=== PATIENT | male | born 1960 | race Caucasian/White ===

== ENCOUNTER 2017-12-14 16:36 | Emergency (ER) | payer MEDICAID ==
[~2017-12-14] VITALS: Ht 188 cm; Wt 145.0 kg
[~2017-12-14 16:36] MED LIST: ALBU18HF2 INH; FURO-149 PO; HYDR-3686 PO; METO1TAB25 PO; NITR0.4T51 SL
[2017-12-14 17:37] LABS: BASOPHILS # (AUTO) 0.1 X10'3 (0-0.2); BASOPHILS % (AUTO) 2.3 % (0-1); EOSINOPHILS # (AUTO) 0.2 X10'3 (0-0.9); EOSINOPHILS % (AUTO) 3.2 % (0-6); HEMATOCRIT 36.5 % (42.0-52.0); HEMOGLOBIN 12.6 g/dl (14.0-17.9); LYMPHOCYTES # (AUTO) 1.3 X10'3 (1.1-4.8); LYMPHOCYTES % (AUTO) 22.7 % (21-51); MEAN CORPUSCULAR HEMOGLOBIN 35.6 PG (27.0-31.0); MEAN CORPUSCULAR HGB CONC 34.5 % (33.0-36.5); MEAN CORPUSCULAR VOLUME 103.2 FL (78-98); MEAN PLATELET VOLUME 8.4 FL (7.4-10.4); MONOCYTES # (AUTO) 0.5 X10'3 (0-0.9); MONOCYTES % (AUTO) 8.4 % (2-12); NEUTROPHILS # (AUTO) 3.5 X10'3 (1.8-7.7); NEUTROPHILS % (AUTO) 63.4 % (42-75); PLATELET COUNT 118 X10'3 (140-440); RED BLOOD COUNT 3.54 X10'6 (4.70-6.10); RED CELL DISTRIBUTION WIDTH 13.6 % (11.5-14.5); WHITE BLOOD COUNT 5.5 X10'3 (4.5-11.0)
[2017-12-14 17:49] LABS: ALANINE AMINOTRANSFERASE 30 U/L (12-78); ALBUMIN 2.1 G/DL (3.4-5.0); ALBUMIN/GLOBULIN RATIO 0.4 (1.1-1.5); ALKALINE PHOSPHATASE 95 IU/L (46-116); ANION GAP 6 (8-16); ASPARTATE AMINO TRANSFERASE 47 U/L (10-37); BILIRUBIN,TOTAL 0.8 MG/DL (0.1-1.0); BLOOD UREA NITROGEN 11 MG/DL (7-18); BUN/CREATININE RATIO 9.6 (5.4-32.0); CALCIUM 7.9 MG/DL (8.5-10.1); CHLORIDE 100 MMOL/L (99-107); CREATININE 1.14 MG/DL (0.60-1.10); GLUCOSE 107 MG/DL (70-104); POTASSIUM 3.2 MMOL/L (3.5-5.1); SODIUM 136 MMOL/L (135-145); TOTAL CARBON DIOXIDE 29.6 MMOL/L (24-32); TOTAL PROTEIN 7.1 G/DL (6.4-8.2); eGFR 66 ML/MIN
[2017-12-14 18:00] VITALS: BP 136/72
[2017-12-14] MEDS ORDERED: potassium Cl 20 mEq SR tablet PO ONE (18:35)
== END 2017-12-14 19:51 | disposition home or self-care (01) ==
LOC: ER 16:36
DX: R14.0 Abdominal distension (gaseous) (principal); E87.6 Hypokalemia; K74.60 Unspecified cirrhosis of liver; K76.6 Portal hypertension; K40.90 Unilateral inguinal hernia, without obstruction or gangrene, not specified as recurrent; J43.9 Emphysema, unspecified; Z79.899 Other long term (current) drug therapy
CPT/HCPCS: 36415; 74176; 80053; 85025; 99285

== ENCOUNTER 2018-01-20 10:06 | Emergency (ER) | payer MEDICAID ==
[~2018-01-20] VITALS: Ht 188 cm; Wt 123.0 kg
[2018-01-20] MEDS ORDERED: ketorolac tromethamine 15mg/ml inj. IM ONE (10:30)
[2018-01-20] MEDS ORDERED: METH-360 PO (10:32)
[2018-01-20] MEDS ORDERED: NAPR-56 PO (10:32)
[2018-01-20 10:50] VITALS: BP 145/89
== END 2018-01-20 10:55 | disposition home or self-care (01) ==
LOC: ER 10:07
DX: S50.811A Abrasion of right forearm, initial encounter (principal); S50.312A Abrasion of left elbow, initial encounter; M25.512 Pain in left shoulder; W19.XXXA Unspecified fall, initial encounter; Y93.89 Activity, other specified; Y92.89 Other specified places as the place of occurrence of the external cause; Y99.9 Unspecified external cause status
CPT/HCPCS: 96372; 99284; A4565; A6255; J1885

== ENCOUNTER 2018-01-30 08:59 | Day surgery (SDC) | payer MEDICAID ==
[~2018-01-30 08:59] MED LIST changes: +METH-360 PO; +NAPR-56 PO
[2018-01-30] MEDS ORDERED: LIDOcaine/PRILOcaine 5gm cream TP ONE (09:54)
== END 2018-01-30 12:15 | disposition home or self-care (01) ==
LOC: WOUND CARE 08:59
PROVIDERS: ATTEND Surgery
DX: L97.522 Non-pressure chronic ulcer of other part of left foot with fat layer exposed (principal); G62.9 Polyneuropathy, unspecified; J43.9 Emphysema, unspecified; Z79.899 Other long term (current) drug therapy
CPT/HCPCS: 11042; 87070; 87075; 87077; 87102; 87176; 87186; A6021; A6206; A6209; L3260

== ENCOUNTER 2018-02-04 09:57 | Day surgery (SDC) | payer MEDICAID ==
[~2018-02-04 09:57] MED LIST changes: -METH-360 PO
[2018-02-04] MEDS ORDERED: LIDOcaine/PRILOcaine 5gm cream TP ONE (10:32)
[2018-02-04] MEDS ORDERED: RIFA300C4 (14:03)
== END 2018-02-04 11:53 | disposition home or self-care (01) ==
LOC: WOUND CARE 09:57
PROVIDERS: ATTEND Surgery
DX: L97.522 Non-pressure chronic ulcer of other part of left foot with fat layer exposed (principal); G62.9 Polyneuropathy, unspecified; J43.9 Emphysema, unspecified; Z79.899 Other long term (current) drug therapy
CPT/HCPCS: 11042; A6206; A6209; A6266; A6446

== ENCOUNTER 2018-02-06 08:51 | Day surgery (SDC) | payer MEDICAID ==
[~2018-02-06 08:51] MED LIST changes: +RIFA300C4
== END 2018-02-06 11:34 | disposition home or self-care (01) ==
LOC: WOUND CARE 08:51
PROVIDERS: ATTEND Surgery
DX: E11.621 Type 2 diabetes mellitus with foot ulcer (principal); L97.522 Non-pressure chronic ulcer of other part of left foot with fat layer exposed; E11.610 Type 2 diabetes mellitus with diabetic neuropathic arthropathy; G62.9 Polyneuropathy, unspecified; J43.9 Emphysema, unspecified; B95.62 Methicillin resistant Staphylococcus aureus infection as the cause of diseases classified elsewhere; I25.2 Old myocardial infarction; I10 Essential (primary) hypertension; K21.9 Gastro-esophageal reflux disease without esophagitis; I87.2 Venous insufficiency (chronic) (peripheral); F17.200 Nicotine dependence, unspecified, uncomplicated; F10.10 Alcohol abuse, uncomplicated; Z79.899 Other long term (current) drug therapy
CPT/HCPCS: 11042; 78315; A6209; A6266; A9503

== ENCOUNTER 2018-02-09 08:56 | Outpatient (CLI) | payer MEDICAID | END 2018-02-09 11:30 | disposition home or self-care (01) | LOC: WOUND CARE 08:56 → EDSTATUS 09:00 → WOUND CARE 11:30 | PROVIDERS: ATTEND Surgery | DX: E11.621 Type 2 diabetes mellitus with foot ulcer (principal); L97.522 Non-pressure chronic ulcer of other part of left foot with fat layer exposed; E11.610 Type 2 diabetes mellitus with diabetic neuropathic arthropathy; G62.9 Polyneuropathy, unspecified; J43.9 Emphysema, unspecified; B95.62 Methicillin resistant Staphylococcus aureus infection as the cause of diseases classified elsewhere; I25.2 Old myocardial infarction; I10 Essential (primary) hypertension; K21.9 Gastro-esophageal reflux disease without esophagitis; I87.2 Venous insufficiency (chronic) (peripheral); F17.200 Nicotine dependence, unspecified, uncomplicated; F10.10 Alcohol abuse, uncomplicated; Z79.899 Other long term (current) drug therapy | CPT/HCPCS: 99215; A6209; A6266 ==

== ENCOUNTER 2018-02-10 08:00 | Outpatient (CLI) | payer MEDICAID ==
[~2018-02-10 08:00] MED LIST changes: +LIDOcaine/PRILOcaine 5gm cream TP ONE
== END 2018-02-10 08:01 | disposition home or self-care (01) ==
LOC: WOUND CARE 08:00 → EDSTATUS 09:00
PROVIDERS: ATTEND Surgery
DX: E11.621 Type 2 diabetes mellitus with foot ulcer (principal); L97.522 Non-pressure chronic ulcer of other part of left foot with fat layer exposed; Z53.21 Procedure and treatment not carried out due to patient leaving prior to being seen by health care provider; E11.610 Type 2 diabetes mellitus with diabetic neuropathic arthropathy; G62.9 Polyneuropathy, unspecified; J43.9 Emphysema, unspecified; B95.62 Methicillin resistant Staphylococcus aureus infection as the cause of diseases classified elsewhere; I25.2 Old myocardial infarction; I10 Essential (primary) hypertension; K21.9 Gastro-esophageal reflux disease without esophagitis; I87.2 Venous insufficiency (chronic) (peripheral); F17.200 Nicotine dependence, unspecified, uncomplicated; F10.10 Alcohol abuse, uncomplicated; Z79.899 Other long term (current) drug therapy

== ENCOUNTER 2018-02-12 09:57 | Day surgery (SDC) | payer MEDICAID ==
[~2018-02-12 09:57] MED LIST changes: -LIDOcaine/PRILOcaine 5gm cream TP ONE
== END 2018-02-12 12:50 | disposition home or self-care (01) ==
LOC: WOUND CARE 09:57
PROVIDERS: ATTEND Surgery
DX: E11.621 Type 2 diabetes mellitus with foot ulcer (principal); L97.522 Non-pressure chronic ulcer of other part of left foot with fat layer exposed; E11.610 Type 2 diabetes mellitus with diabetic neuropathic arthropathy; G62.9 Polyneuropathy, unspecified; J43.9 Emphysema, unspecified; B95.62 Methicillin resistant Staphylococcus aureus infection as the cause of diseases classified elsewhere; I25.2 Old myocardial infarction; I10 Essential (primary) hypertension; K21.9 Gastro-esophageal reflux disease without esophagitis; I87.2 Venous insufficiency (chronic) (peripheral); F17.200 Nicotine dependence, unspecified, uncomplicated; F10.10 Alcohol abuse, uncomplicated; Z79.899 Other long term (current) drug therapy
CPT/HCPCS: 11042; A6209; A6266

== ENCOUNTER 2018-04-03 08:55 | Day surgery (SDC) | payer MEDICAID ==
[~2018-04-03 08:55] MED LIST changes: -NAPR-56 PO
[2018-04-03] MEDS ORDERED: LIDOcaine/PRILOcaine 5gm cream TP ONE (10:10)
== END 2018-04-03 10:55 | disposition home or self-care (01) ==
LOC: WOUND CARE 08:55
PROVIDERS: ATTEND Surgery
DX: E11.621 Type 2 diabetes mellitus with foot ulcer (principal); L97.522 Non-pressure chronic ulcer of other part of left foot with fat layer exposed; E11.610 Type 2 diabetes mellitus with diabetic neuropathic arthropathy; G62.9 Polyneuropathy, unspecified; J43.9 Emphysema, unspecified; B95.62 Methicillin resistant Staphylococcus aureus infection as the cause of diseases classified elsewhere; I25.2 Old myocardial infarction; I10 Essential (primary) hypertension; K21.9 Gastro-esophageal reflux disease without esophagitis; I87.2 Venous insufficiency (chronic) (peripheral); F17.200 Nicotine dependence, unspecified, uncomplicated; F10.10 Alcohol abuse, uncomplicated; Z79.899 Other long term (current) drug therapy
CPT/HCPCS: 97597; A6209; A6021; A6206; A6446

== ENCOUNTER 2018-04-16 10:15 | Day surgery (SDC) | payer MEDICAID | END 2018-04-16 13:15 | disposition home or self-care (01) | LOC: WOUND CARE 10:15 | PROVIDERS: ATTEND Surgery | DX: E11.621 Type 2 diabetes mellitus with foot ulcer (principal); L97.522 Non-pressure chronic ulcer of other part of left foot with fat layer exposed; E11.610 Type 2 diabetes mellitus with diabetic neuropathic arthropathy; G62.9 Polyneuropathy, unspecified; J43.9 Emphysema, unspecified; B95.62 Methicillin resistant Staphylococcus aureus infection as the cause of diseases classified elsewhere; I25.2 Old myocardial infarction; I10 Essential (primary) hypertension; K21.9 Gastro-esophageal reflux disease without esophagitis; I87.2 Venous insufficiency (chronic) (peripheral); F17.200 Nicotine dependence, unspecified, uncomplicated; F10.10 Alcohol abuse, uncomplicated; Z79.899 Other long term (current) drug therapy | CPT/HCPCS: A6021; A6206; A6446 ==

== ENCOUNTER 2018-04-24 10:41 | Day surgery (SDC) | payer MEDICAID ==
--- NOTE | 2018-04-24 12:00 | NUR ---
Patient arrived via wheelchair from [facility] and was admitted to outpatient wound care for physician visit with Jorge Alberto Joshi MD. Placed in contact isolation precautions per hospital policy. Dressing removed, wound cleansed and lidocaine applied per order. Patient assessed for changes in conditions, medications and medical history. 1125 - Dr. Joshi at bedside accompanied by RN. Wound assessed, time out performed by MD/RN. Wound debrided as detailed in the physician progress/procedure note. Plan of care discussed with patient. Dressings placed per MD orders. Patient instructed on the signs and symptoms of infection and to call the Wound Center if any occur or to go to the ED if we are closed: Increased pain in wound Increase in drainage from the wound Redness in the skin surrounding the wound Bleeding from the wound Temperature of 101 or greater Patient instructed that the weight of their body puts a large amount of pressure on their wounds. This pressure keeps the new tissue from growing and inhibits new blood vessels from forming. Explained that, if they continue to bear weight on a body part that has a wound, the time it takes to heal the wound increases, the wound may get worse or the wound may not heal at all. Patient verbalized understanding of all discharge instructions and plan of care and exited via wheelchair out to [facility] in stable condition with no sign or symptom of distress at time of discharge. Kiana at [facility] given report and orders faxed.
== END 2018-04-24 12:00 | disposition home or self-care (01) ==
LOC: WOUND CARE 10:41
PROVIDERS: ATTEND Surgery
DX: E11.621 Type 2 diabetes mellitus with foot ulcer (principal); L97.522 Non-pressure chronic ulcer of other part of left foot with fat layer exposed; E11.610 Type 2 diabetes mellitus with diabetic neuropathic arthropathy; G62.9 Polyneuropathy, unspecified; E11.69 Type 2 diabetes mellitus with other specified complication; M86.272 Subacute osteomyelitis, left ankle and foot; L03.116 Cellulitis of left lower limb; J43.9 Emphysema, unspecified; B95.62 Methicillin resistant Staphylococcus aureus infection as the cause of diseases classified elsewhere; I25.2 Old myocardial infarction; I10 Essential (primary) hypertension; K21.9 Gastro-esophageal reflux disease without esophagitis; I87.2 Venous insufficiency (chronic) (peripheral); F17.200 Nicotine dependence, unspecified, uncomplicated; F10.10 Alcohol abuse, uncomplicated; Z79.899 Other long term (current) drug therapy
CPT/HCPCS: 97597; A6209; A6021; A6206; A6446

== ENCOUNTER 2018-05-04 11:03 | Day surgery (SDC) | payer MEDICAID ==
[2018-05-04] MEDS ORDERED: LIDOcaine/PRILOcaine 5gm cream TP ONE (11:21)
--- NOTE | 2018-05-04 12:30 | NUR ---
Patient arrived via wheelchair from [facility] and was admitted to outpatient wound care for physician visit with Jorge Alberto Josih MD. Dressing removed, wound cleansed and Emla cream applied per order. Patient assessed for changes in conditions, medications and medical history. 1125 - Dr. Joshi at bedside accompanied by RN. Wound assessed, time out performed by MD/RN. Wound debrided as detailed in the physician progress/procedure note. Plan of care discussed with patient. Dressings placed per MD orders. Patient instructed on the signs and symptoms of infection and to call the Wound Center if any occur or to go to the ED if we are closed: Increased pain in wound Increase in drainage from the wound Redness in the skin surrounding the wound Bleeding from the wound Temperature of 101 or greater Patient instructed that the weight of their body puts a large amount of pressure on their wounds. This pressure keeps the new tissue from growing and inhibits new blood vessels from forming. Explained that, if they continue to bear weight on a body part that has a wound, the time it takes to heal the wound increases, the wound may get worse or the wound may not heal at all. Patient verbalized understanding of all discharge instructions and plan of care and exited via wheelchair out to [facility] in stable condition with no sign or symptom of distress at time of discharge.
== END 2018-05-04 12:11 | disposition home or self-care (01) ==
LOC: WOUND CARE 11:03
PROVIDERS: ATTEND Surgery
DX: E11.621 Type 2 diabetes mellitus with foot ulcer (principal); L97.522 Non-pressure chronic ulcer of other part of left foot with fat layer exposed; E11.610 Type 2 diabetes mellitus with diabetic neuropathic arthropathy; G62.9 Polyneuropathy, unspecified; E11.69 Type 2 diabetes mellitus with other specified complication; M86.272 Subacute osteomyelitis, left ankle and foot; L03.116 Cellulitis of left lower limb; J43.9 Emphysema, unspecified; B95.62 Methicillin resistant Staphylococcus aureus infection as the cause of diseases classified elsewhere; I25.2 Old myocardial infarction; I10 Essential (primary) hypertension; K21.9 Gastro-esophageal reflux disease without esophagitis; I87.2 Venous insufficiency (chronic) (peripheral); F17.200 Nicotine dependence, unspecified, uncomplicated; F10.10 Alcohol abuse, uncomplicated; Z79.899 Other long term (current) drug therapy
CPT/HCPCS: 97597; A6209; A6021; A6206; A6446

== ENCOUNTER 2018-05-11 10:56 | Day surgery (SDC) | payer MEDICAID ==
[~2018-05-11 10:56] MED LIST changes: -RIFA300C4
[2018-05-11] MEDS ORDERED: LIDOcaine/PRILOcaine 5gm cream TP ONE (11:32)
--- NOTE | 2018-05-11 14:09 | NUR ---
Patient arrived safely into [facility] via wheelchair. Patient was admitted to outpatient wound care for physician visit. Dressing removed, wound cleansed and Emla applied per order. Patient assessed for changes in conditions, medications and medical history. Dr. Joshi at bedside accompanied by RN. Wound assessed, time out performed by MD/RN. Wound debrided as detailed in the physician progress/procedure note. Plan of care discussed with patient. Dressings placed per MD orders. Patient instructed on the signs and symptoms of infection and to call the Wound Center if any occur or to go to the ED if we are closed: Increased pain in wound Increase in drainage from the wound Redness in the skin surrounding the wound Bleeding from the wound Temperature of 101 or greater Patient instructed that the weight of their body puts a large amount of pressure on their wounds. This pressure keeps the new tissue from growing and inhibits new blood vessels from forming. Explained that, if they continue to bear weight on a body part that has a wound, the time it takes to heal the wound increases, the wound may get worse or the wound may not heal at all. Patient verbalized understanding of all discharge instructions and plan of care and ambulated independently out to [facility] in stable condition with no sign or symptom of distress at time of discharge Addendum: 05/11/18 at 1411 by Savannah Tyson RN Amended: Links added.
== END 2018-05-11 12:28 | disposition home or self-care (01) ==
LOC: WOUND CARE 10:56
PROVIDERS: ATTEND Surgery
DX: E11.621 Type 2 diabetes mellitus with foot ulcer (principal); L97.522 Non-pressure chronic ulcer of other part of left foot with fat layer exposed; E11.610 Type 2 diabetes mellitus with diabetic neuropathic arthropathy; G62.9 Polyneuropathy, unspecified; E11.69 Type 2 diabetes mellitus with other specified complication; M86.272 Subacute osteomyelitis, left ankle and foot; L03.116 Cellulitis of left lower limb; J43.9 Emphysema, unspecified; B95.62 Methicillin resistant Staphylococcus aureus infection as the cause of diseases classified elsewhere; I25.2 Old myocardial infarction; I10 Essential (primary) hypertension; K21.9 Gastro-esophageal reflux disease without esophagitis; I87.2 Venous insufficiency (chronic) (peripheral); F17.200 Nicotine dependence, unspecified, uncomplicated; F10.10 Alcohol abuse, uncomplicated; Z79.899 Other long term (current) drug therapy
CPT/HCPCS: 11042; A6209; A6021; A6446

== ENCOUNTER 2018-05-20 09:34 | Day surgery (SDC) | payer MEDICAID ==
[2018-05-20] MEDS ORDERED: LIDOcaine 2% 5ml jelly ONE (09:50)
--- NOTE | 2018-05-20 11:30 | NUR ---
Patient arrived via wheelchair from [facility] and was admitted to outpatient wound care for physician visit with Jorge Alberto Joshi MD. Dressing removed, wound cleansed and lidocaine applied per order. Patient assessed for changes in conditions, medications and medical history. 1100 - Dr. Joshi at bedside accompanied by RN. Wound assessed, time out performed by MD/RN. Wound debrided and procedure performed as detailed in the physician progress/procedure note. Plan of care discussed with patient. Dressings placed per MD orders. Patient instructed on the signs and symptoms of infection and to call the Wound Center if any occur or to go to the ED if we are closed: Increased pain in wound Increase in drainage from the wound Redness in the skin surrounding the wound Bleeding from the wound Temperature of 101 or greater Patient instructed that the weight of their body puts a large amount of pressure on their wounds. This pressure keeps the new tissue from growing and inhibits new blood vessels from forming. Explained that, if they continue to bear weight on a body part that has a wound, the time it takes to heal the wound increases, the wound may get worse or the wound may not heal at all. Patient verbalized understanding of all discharge instructions and plan of care and exited via wheelchair out to [facility] in stable condition with no sign or symptom of distress at time of discharge.
== END 2018-05-20 11:19 | disposition home or self-care (01) ==
LOC: WOUND CARE 09:34
PROVIDERS: ATTEND Surgery
DX: E11.621 Type 2 diabetes mellitus with foot ulcer (principal); L97.522 Non-pressure chronic ulcer of other part of left foot with fat layer exposed; E11.610 Type 2 diabetes mellitus with diabetic neuropathic arthropathy; E11.42 Type 2 diabetes mellitus with diabetic polyneuropathy; E11.69 Type 2 diabetes mellitus with other specified complication; M86.272 Subacute osteomyelitis, left ankle and foot; J43.9 Emphysema, unspecified; B95.62 Methicillin resistant Staphylococcus aureus infection as the cause of diseases classified elsewhere; I25.2 Old myocardial infarction; I10 Essential (primary) hypertension; K21.9 Gastro-esophageal reflux disease without esophagitis; I87.2 Venous insufficiency (chronic) (peripheral); F17.200 Nicotine dependence, unspecified, uncomplicated; F10.10 Alcohol abuse, uncomplicated; Z79.899 Other long term (current) drug therapy
CPT/HCPCS: 15275; A6209; A6222; Q4106; A6250; A6446

== ENCOUNTER 2018-05-27 09:54 | Day surgery (SDC) | payer MEDICAID ==
--- NOTE | 2018-05-27 12:56 | NUR ---
[facility] Patient admitted to outpatient wound care for physician visit with Jorge Alberto Joshi MD. Dressing removed, wound cleansed and lidocaine applied per order. Patient assessed for changes in conditions, medications and medical history. Dr. Joshi at bedside accompanied by RN. Wound assessed and no debridement was done. Plan of care discussed with patient. Dressings placed per MD orders. Patient instructed on the signs and symptoms of infection and to call the Wound Center if any occur or to go to the ED if we are closed: Increased pain in wound Increase in drainage from the wound Redness in the skin surrounding the wound Bleeding from the wound Temperature of 101 or greater Patient instructed that the weight of their body puts a large amount of pressure on their wounds. This pressure keeps the new tissue from growing and inhibits new blood vessels from forming. Explained that, if they continue to bear weight on a body part that has a wound, the time it takes to heal the wound increases, the wound may get worse or the wound may not heal at all. Patient verbalized understanding of all discharge instructions and plan of care. Patient left in stable condition with no sign or symptom of distress. Addendum: 05/27/18 at 1300 by Savannah Tyson RN Amended: Links added.
== END 2018-05-27 10:53 | disposition home or self-care (01) ==
LOC: WOUND CARE 09:54
PROVIDERS: ATTEND Surgery
DX: E11.621 Type 2 diabetes mellitus with foot ulcer (principal); L97.522 Non-pressure chronic ulcer of other part of left foot with fat layer exposed; E11.610 Type 2 diabetes mellitus with diabetic neuropathic arthropathy; E11.42 Type 2 diabetes mellitus with diabetic polyneuropathy; E11.69 Type 2 diabetes mellitus with other specified complication; M86.272 Subacute osteomyelitis, left ankle and foot; J43.9 Emphysema, unspecified; B95.62 Methicillin resistant Staphylococcus aureus infection as the cause of diseases classified elsewhere; I25.2 Old myocardial infarction; I10 Essential (primary) hypertension; K21.9 Gastro-esophageal reflux disease without esophagitis; I87.2 Venous insufficiency (chronic) (peripheral); F17.200 Nicotine dependence, unspecified, uncomplicated; F10.10 Alcohol abuse, uncomplicated; Z79.899 Other long term (current) drug therapy
CPT/HCPCS: A6209; G0463; A6206; A6446

== ENCOUNTER 2018-06-03 09:40 | Day surgery (SDC) | payer MEDICAID ==
[2018-06-03] MEDS ORDERED: LIDOcaine 2% 5ml jelly ONE (10:06)
--- NOTE | 2018-06-03 12:10 | NUR ---
Patient ambulated independently from [facility] and was admitted to outpatient wound care for physician visit. Dressings removed, wound cleansed. Patient assessment completed with review of patient's medical history and current medications. 1025-Dr. Joshi at bedside accompanied by RN. Wound assessed, time-out performed by MD/RN. Wound debrided as detailed in the physician progress/procedure note. Plan of care discussed with patient. Dressings placed per MD orders. Patient instructed on the signs and symptoms of infection and to call the Wound Center if any occur or to go to the ED if we are closed: Increased pain in the wound Increase in drainage from the wound Redness in the skin surrounding the wound Bleeding from the wound Temperature of 101F or greater Patient instructed that the weight of their body puts a large amount of pressure on their wounds. This pressure keeps the new tissue from growing and inhibits new blood vessels from forming. Explained that, if they continue to bear weight on a body part that has a wound, the time it takes to heal the wound increases, the wound may get worse, or the wound may not heal at all. Patient verbalized understanding of all discharge instructions and plan of care. Patient ambulated independently out to [facility] in stable condition with no signs or symptoms of distress at time of discharge.
== END 2018-06-03 11:03 | disposition home or self-care (01) ==
LOC: WOUND CARE 09:40
PROVIDERS: ATTEND Surgery
DX: E11.621 Type 2 diabetes mellitus with foot ulcer (principal); L97.522 Non-pressure chronic ulcer of other part of left foot with fat layer exposed; E11.610 Type 2 diabetes mellitus with diabetic neuropathic arthropathy; E11.42 Type 2 diabetes mellitus with diabetic polyneuropathy; E11.69 Type 2 diabetes mellitus with other specified complication; M86.272 Subacute osteomyelitis, left ankle and foot; J43.9 Emphysema, unspecified; B95.62 Methicillin resistant Staphylococcus aureus infection as the cause of diseases classified elsewhere; I25.2 Old myocardial infarction; I10 Essential (primary) hypertension; K21.9 Gastro-esophageal reflux disease without esophagitis; I87.2 Venous insufficiency (chronic) (peripheral); F17.200 Nicotine dependence, unspecified, uncomplicated; F10.10 Alcohol abuse, uncomplicated; Z79.899 Other long term (current) drug therapy
CPT/HCPCS: 15275; A6222; Q4186; A6206; A6250; A6446

== ENCOUNTER 2018-06-11 11:20 | Day surgery (SDC) | payer MEDICAID ==
--- NOTE | 2018-06-11 14:59 | NUR ---
Patient arrived safely into [facility] via wheelchair. Patient admitted to outpatient wound care for physician visit with Jorge Alberto Joshi MD. Dressing removed, wound cleansed and lidocaine applied per order. Patient assessed for changes in conditions, medications and medical history. Dr. Joshi at bedside accompanied by RN. Wound assessed, time out performed by MD/RN. Wound debrided as detailed in the physician progress/procedure note. Plan of care discussed with patient. Dressings placed per MD orders. Patient instructed on the signs and symptoms of infection and to call the Wound Center if any occur or to go to the ED if we are closed: Increased pain in wound Increase in drainage from the wound Redness in the skin surrounding the wound Bleeding from the wound Temperature of 101 or greater Patient instructed that the weight of their body puts a large amount of pressure on their wounds. This pressure keeps the new tissue from growing and inhibits new blood vessels from forming. Explained that, if they continue to bear weight on a body part that has a wound, the time it takes to heal the wound increases, the wound may get worse or the wound may not heal at all. Patient verbalized understanding of all discharge instructions and plan of care. Patient left in stable condition with no sign or symptom of distress at time of discharge. Addendum: 06/11/18 at 1501 by Savannah Tyson RN Amended: Links added.
== END 2018-06-11 12:42 | disposition home or self-care (01) ==
LOC: WOUND CARE 11:20
PROVIDERS: ATTEND Surgery
DX: E11.621 Type 2 diabetes mellitus with foot ulcer (principal); L97.522 Non-pressure chronic ulcer of other part of left foot with fat layer exposed; E11.610 Type 2 diabetes mellitus with diabetic neuropathic arthropathy; E11.42 Type 2 diabetes mellitus with diabetic polyneuropathy; E11.69 Type 2 diabetes mellitus with other specified complication; M86.272 Subacute osteomyelitis, left ankle and foot; J43.9 Emphysema, unspecified; B95.62 Methicillin resistant Staphylococcus aureus infection as the cause of diseases classified elsewhere; I25.2 Old myocardial infarction; I10 Essential (primary) hypertension; K21.9 Gastro-esophageal reflux disease without esophagitis; I87.2 Venous insufficiency (chronic) (peripheral); F17.200 Nicotine dependence, unspecified, uncomplicated; F10.10 Alcohol abuse, uncomplicated; Z79.899 Other long term (current) drug therapy
CPT/HCPCS: 15275; A6209; A6222; Q4186; A6250; A6446

== ENCOUNTER 2018-06-17 10:00 | Outpatient (CLI) | payer MEDICAID ==
--- NOTE | 2018-06-17 14:06 | NUR ---
Patient arrived safely into [facility] via wheelchair. Patient admitted to outpatient wound care clinic for physician visit with Jorge Alberto Joshi MD. Dressing removed, wound cleansed and lidocaine applied per order. Patient assessed for changes in conditions, medications and medical history. Dr. Joshi at bedside accompanied by RN. Wound assessed, time out performed by MD/RN. Wound debrided as detailed in the physician progress/procedure note. Plan of care discussed with patient. Dressings placed per MD orders. Patient instructed on the signs and symptoms of infection and to call the Wound Center if any occur or to go to the ED if we are closed: Increased pain in wound Increase in drainage from the wound Redness in the skin surrounding the wound Bleeding from the wound Temperature of 101 or greater Patient instructed that the weight of their body puts a large amount of pressure on their wounds. This pressure keeps the new tissue from growing and inhibits new blood vessels from forming. Explained that, if they continue to bear weight on a body part that has a wound, the time it takes to heal the wound increases, the wound may get worse or the wound may not heal at all. Patient verbalized understanding of all discharge instructions and plan of care. Patient left stable condition with no sign or symptom of distress at time of discharge. Addendum: 06/17/18 at 1409 by Savannah Tyson RN Amended: Links added.
== END 2018-06-17 11:22 | disposition home or self-care (01) ==
LOC: EDSTATUS 10:00 → WOUND CARE 10:00
PROVIDERS: ATTEND Surgery
DX: E11.621 Type 2 diabetes mellitus with foot ulcer (principal); L97.522 Non-pressure chronic ulcer of other part of left foot with fat layer exposed; E11.610 Type 2 diabetes mellitus with diabetic neuropathic arthropathy; E11.42 Type 2 diabetes mellitus with diabetic polyneuropathy; E11.69 Type 2 diabetes mellitus with other specified complication; M86.272 Subacute osteomyelitis, left ankle and foot; J43.9 Emphysema, unspecified; B95.62 Methicillin resistant Staphylococcus aureus infection as the cause of diseases classified elsewhere; I25.2 Old myocardial infarction; I10 Essential (primary) hypertension; K21.9 Gastro-esophageal reflux disease without esophagitis; I87.2 Venous insufficiency (chronic) (peripheral); F17.200 Nicotine dependence, unspecified, uncomplicated; F10.10 Alcohol abuse, uncomplicated; Z79.899 Other long term (current) drug therapy
CPT/HCPCS: A6209; G0463; A6021; A6206; A6446

== ENCOUNTER 2018-06-24 10:02 | Day surgery (SDC) | payer MEDICAID ==
--- NOTE | 2018-06-24 11:00 | NUR ---
Patient arrived via wheelchair from [facility] and was admitted to outpatient wound care for physician visit with Jorge Alberto Joshi MD. Placed in contact isolation precautions per hospital policy. Dressing removed, wound cleansed and Emla cream applied per order. Patient assessed for changes in conditions, medications and medical history. 1027 - Dr. Joshi at bedside accompanied by RN. Wound assessed, time out performed by MD/RN. Wound debrided as detailed in the physician progress/procedure note. Plan of care discussed with patient. Dressings placed per MD orders. Patient instructed on the signs and symptoms of infection and to call the Wound Center if any occur or to go to the ED if we are closed: Increased pain in wound Increase in drainage from the wound Redness in the skin surrounding the wound Bleeding from the wound Temperature of 101 or greater Patient instructed that the weight of their body puts a large amount of pressure on their wounds. This pressure keeps the new tissue from growing and inhibits new blood vessels from forming. Explained that, if they continue to bear weight on a body part that has a wound, the time it takes to heal the wound increases, the wound may get worse or the wound may not heal at all. Patient verbalized understanding of all discharge instructions and plan of care and exited via wheelchair out to [facility] in stable condition with no sign or symptom of distress at time of discharge.
[2018-06-24] MEDS ORDERED: LIDOcaine/PRILOcaine 5gm cream TP ONE (11:10)
== END 2018-06-24 11:45 | disposition home or self-care (01) ==
LOC: WOUND CARE 10:02
PROVIDERS: ATTEND Surgery
DX: E11.621 Type 2 diabetes mellitus with foot ulcer (principal); L97.522 Non-pressure chronic ulcer of other part of left foot with fat layer exposed; E11.610 Type 2 diabetes mellitus with diabetic neuropathic arthropathy; E11.42 Type 2 diabetes mellitus with diabetic polyneuropathy; E11.69 Type 2 diabetes mellitus with other specified complication; M86.272 Subacute osteomyelitis, left ankle and foot; J43.9 Emphysema, unspecified; B95.62 Methicillin resistant Staphylococcus aureus infection as the cause of diseases classified elsewhere; I25.2 Old myocardial infarction; I10 Essential (primary) hypertension; K21.9 Gastro-esophageal reflux disease without esophagitis; I87.2 Venous insufficiency (chronic) (peripheral); F17.200 Nicotine dependence, unspecified, uncomplicated; F10.10 Alcohol abuse, uncomplicated; Z79.899 Other long term (current) drug therapy
CPT/HCPCS: 11042; A6209; A6021; A6206; A6446

== ENCOUNTER 2018-07-01 09:45 | Day surgery (SDC) | payer MEDICAID ==
[2018-07-01] MEDS ORDERED: LIDOcaine/PRILOcaine 5gm cream TP ONE (10:02)
--- NOTE | 2018-07-01 13:02 | NUR ---
Patient arrived safely into [facility] via wheelchair. Patient admitted to outpatient wound care for physician visit with Jorge Alberto Joshi MD. Dressing removed, wound cleansed and Emla cream applied per order. Patient assessed for changes in conditions, medications and medical history. Dr. Joshi at bedside accompanied by RN. Wound assessed, time out performed by MD/RN. Wound debrided as detailed in the physician progress/procedure note. Plan of care discussed with patient. Dressings placed per MD orders. Patient instructed on the signs and symptoms of infection and to call the Wound Center if any occur or to go to the ED if we are closed: Increased pain in wound Increase in drainage from the wound Redness in the skin surrounding the wound Bleeding from the wound Temperature of 101 or greater Patient instructed that the weight of their body puts a large amount of pressure on their wounds. This pressure keeps the new tissue from growing and inhibits new blood vessels from forming. Explained that, if they continue to bear weight on a body part that has a wound, the time it takes to heal the wound increases, the wound may get worse or the wound may not heal at all. Patient verbalized understanding of all discharge instructions and plan of care. Patient left in stable condition with no sign or symptom of distress at time of discharge. Addendum: 07/01/18 at 1306 by Savannah Tyson RN Amended: Links added.
== END 2018-07-01 10:56 | disposition home or self-care (01) ==
LOC: WOUND CARE 09:45
PROVIDERS: ATTEND Surgery
DX: E11.621 Type 2 diabetes mellitus with foot ulcer (principal); L97.522 Non-pressure chronic ulcer of other part of left foot with fat layer exposed; E11.610 Type 2 diabetes mellitus with diabetic neuropathic arthropathy; E11.42 Type 2 diabetes mellitus with diabetic polyneuropathy; E11.69 Type 2 diabetes mellitus with other specified complication; M86.272 Subacute osteomyelitis, left ankle and foot; J43.9 Emphysema, unspecified; B95.62 Methicillin resistant Staphylococcus aureus infection as the cause of diseases classified elsewhere; I25.2 Old myocardial infarction; I10 Essential (primary) hypertension; K21.9 Gastro-esophageal reflux disease without esophagitis; I87.2 Venous insufficiency (chronic) (peripheral); F17.200 Nicotine dependence, unspecified, uncomplicated; F10.10 Alcohol abuse, uncomplicated; Z79.899 Other long term (current) drug therapy
CPT/HCPCS: 15275; A6209; A6222; Q4186; A6250; A6446

== ENCOUNTER 2018-07-08 10:09 | Outpatient (CLI) | payer MEDICAID ==
--- NOTE | 2018-07-08 12:07 | NUR ---
Patient arrived via wheelchair from [facility] and was admitted to outpatient wound care for physician visit with Jorge Alberto Joshi MD. Placed in contact isolation precautions per hospital policy. Dressing removed, wound cleansed. Patient assessed for changes in conditions, medications and medical history. 1133 - Dr. Joshi at bedside accompanied by RN. Wound assessed by MD, orders written. Plan of care discussed with patient. Dressings placed per MD orders. Patient instructed on the signs and symptoms of infection and to call the Wound Center if any occur or to go to the ED if we are closed: Increased pain in wound Increase in drainage from the wound Redness in the skin surrounding the wound Bleeding from the wound Temperature of 101 or greater Patient instructed that the weight of their body puts a large amount of pressure on their wounds. This pressure keeps the new tissue from growing and inhibits new blood vessels from forming. Explained that, if they continue to bear weight on a body part that has a wound, the time it takes to heal the wound increases, the wound may get worse or the wound may not heal at all. Patient verbalized understanding of all discharge instructions and plan of care and exited via wheelchair accompanied by friend out to [facility] in stable condition with no sign or symptom of distress at time of discharge.
== END 2018-07-08 11:52 | disposition home or self-care (01) ==
LOC: WOUND CARE 10:09
PROVIDERS: ATTEND Surgery
DX: E11.621 Type 2 diabetes mellitus with foot ulcer (principal); L97.522 Non-pressure chronic ulcer of other part of left foot with fat layer exposed; E11.610 Type 2 diabetes mellitus with diabetic neuropathic arthropathy; E11.42 Type 2 diabetes mellitus with diabetic polyneuropathy; E11.69 Type 2 diabetes mellitus with other specified complication; M86.572 Other chronic hematogenous osteomyelitis, left ankle and foot; J43.9 Emphysema, unspecified; B95.62 Methicillin resistant Staphylococcus aureus infection as the cause of diseases classified elsewhere; I25.2 Old myocardial infarction; I10 Essential (primary) hypertension; K21.9 Gastro-esophageal reflux disease without esophagitis; I87.2 Venous insufficiency (chronic) (peripheral); F17.200 Nicotine dependence, unspecified, uncomplicated; F10.10 Alcohol abuse, uncomplicated; Z79.899 Other long term (current) drug therapy
CPT/HCPCS: A6209; A6222; G0463; A6446

== ENCOUNTER 2018-07-14 09:55 | Day surgery (SDC) | payer MEDICAID ==
[2018-07-14] MEDS ORDERED: LIDOcaine/PRILOcaine 5gm cream TP ONE (10:23)
--- NOTE | 2018-07-14 11:15 | NUR ---
Patient arrived via wheelchair from [facility] and was admitted to outpatient wound care for physician visit with Jorge Alberto Joshi MD. Placed in contact isolation precautions per hospital policy. Dressing removed, wound cleansed and Emla cream applied per order. Patient assessed for changes in conditions, medications and medical history. 1040 - Dr. Joshi at bedside accompanied by RN. Wound assessed, time out performed by MD/RN. Wound debrided as detailed in the physician progress/procedure note. Plan of care discussed with patient. Dressings placed per MD orders. Patient instructed on the signs and symptoms of infection and to call the Wound Center if any occur or to go to the ED if we are closed: Increased pain in wound Increase in drainage from the wound Redness in the skin surrounding the wound Bleeding from the wound Temperature of 101 or greater Patient instructed that the weight of their body puts a large amount of pressure on their wounds. This pressure keeps the new tissue from growing and inhibits new blood vessels from forming. Explained that, if they continue to bear weight on a body part that has a wound, the time it takes to heal the wound increases, the wound may get worse or the wound may not heal at all. Patient verbalized understanding of all discharge instructions and plan of care and exited via wheelchair out to [facility] in stable condition with no sign or symptom of distress at time of discharge.
== END 2018-07-14 11:21 | disposition home or self-care (01) ==
LOC: WOUND CARE 09:55
PROVIDERS: ATTEND Surgery
DX: E11.621 Type 2 diabetes mellitus with foot ulcer (principal); L97.522 Non-pressure chronic ulcer of other part of left foot with fat layer exposed; E11.610 Type 2 diabetes mellitus with diabetic neuropathic arthropathy; E11.42 Type 2 diabetes mellitus with diabetic polyneuropathy; E11.69 Type 2 diabetes mellitus with other specified complication; M86.572 Other chronic hematogenous osteomyelitis, left ankle and foot; J43.9 Emphysema, unspecified; B95.62 Methicillin resistant Staphylococcus aureus infection as the cause of diseases classified elsewhere; I25.2 Old myocardial infarction; I10 Essential (primary) hypertension; K21.9 Gastro-esophageal reflux disease without esophagitis; I87.2 Venous insufficiency (chronic) (peripheral); F17.200 Nicotine dependence, unspecified, uncomplicated; F10.10 Alcohol abuse, uncomplicated; Z79.899 Other long term (current) drug therapy
CPT/HCPCS: 97597; A6209; A6021; A6206; A6446

== ENCOUNTER 2018-07-21 09:55 | Day surgery (SDC) | payer MEDICAID ==
[2018-07-21] MEDS ORDERED: LIDOcaine/PRILOcaine 5gm cream TP ONE (11:11)
--- NOTE | 2018-07-21 13:07 | NUR ---
Patient arrived safely into [facility] via wheelchair. Patient admitted to outpatient wound care for physician visit with Jorge Alberto Joshi MD. Dressing removed, wound cleansed and Emla cream applied per order. Patient assessed for changes in conditions, medications and medical history. Dr. Joshi at bedside accompanied by RN. Wound assessed, time out performed by MD/RN. Wound debrided as detailed in the physician progress/procedure note. Plan of care discussed with patient. Dressings placed per MD orders. Patient instructed on the signs and symptoms of infection and to call the Wound Center if any occur or to go to the ED if we are closed: Increased pain in wound Increase in drainage from the wound Redness in the skin surrounding the wound Bleeding from the wound Temperature of 101 or greater Patient instructed that the weight of their body puts a large amount of pressure on their wounds. This pressure keeps the new tissue from growing and inhibits new blood vessels from forming. Explained that, if they continue to bear weight on a body part that has a wound, the time it takes to heal the wound increases, the wound may get worse or the wound may not heal at all. Patient verbalized understanding of all discharge instructions and plan of care. Patient left in stable condition with no sign or symptom of distress at time of discharge. Addendum: 07/21/18 at 1309 by Savannah Tyson RN Amended: Links added.
== END 2018-07-21 11:39 | disposition home or self-care (01) ==
LOC: WOUND CARE 09:55
PROVIDERS: ATTEND Surgery
DX: E11.621 Type 2 diabetes mellitus with foot ulcer (principal); L97.522 Non-pressure chronic ulcer of other part of left foot with fat layer exposed; E11.610 Type 2 diabetes mellitus with diabetic neuropathic arthropathy; E11.42 Type 2 diabetes mellitus with diabetic polyneuropathy; E11.69 Type 2 diabetes mellitus with other specified complication; M86.572 Other chronic hematogenous osteomyelitis, left ankle and foot; J43.9 Emphysema, unspecified; B95.62 Methicillin resistant Staphylococcus aureus infection as the cause of diseases classified elsewhere; I25.2 Old myocardial infarction; I10 Essential (primary) hypertension; K21.9 Gastro-esophageal reflux disease without esophagitis; I87.2 Venous insufficiency (chronic) (peripheral); F17.200 Nicotine dependence, unspecified, uncomplicated; F10.10 Alcohol abuse, uncomplicated; Z79.899 Other long term (current) drug therapy
CPT/HCPCS: 97597; A6209; A6021; A6206; A6446

== ENCOUNTER 2018-07-28 10:00 | Outpatient (CLI) | payer MEDICAID ==
[2018-07-28] MEDS ORDERED: LIDOcaine/PRILOcaine 5gm cream TP ONE (10:16)
--- NOTE | 2018-07-28 11:18 | NUR ---
Patient arrived safely into [facility] via wheelchair. Patient admitted to outpatient wound care for physician visit with Jorge Alberto Joshi MD. Dressing removed, wound cleansed and Emla cream applied per order. Patient assessed for changes in conditions, medications and medical history. Dr. Joshi at bedside accompanied by RN. Wound assessed, time out performed by MD/RN. Wound debrided as detailed in the physician progress/procedure note. Plan of care discussed with patient. Dressings placed per MD orders. Patient instructed on the signs and symptoms of infection and to call the Wound Center if any occur or to go to the ED if we are closed: Increased pain in wound Increase in drainage from the wound Redness in the skin surrounding the wound Bleeding from the wound Temperature of 101 or greater Patient instructed that the weight of their body puts a large amount of pressure on their wounds. This pressure keeps the new tissue from growing and inhibits new blood vessels from forming. Explained that, if they continue to bear weight on a body part that has a wound, the time it takes to heal the wound increases, the wound may get worse or the wound may not heal at all. Patient verbalized understanding of all discharge instructions and plan of care. Patient left in stable condition with no sign or symptom of distress at time of discharge. Addendum: 07/28/18 at 1120 by Savannah Tyson RN Amended: Links added.
== END 2018-07-28 11:12 | disposition home or self-care (01) ==
LOC: EDSTATUS 10:00 → WOUND CARE 10:00
PROVIDERS: ATTEND Surgery
DX: E11.621 Type 2 diabetes mellitus with foot ulcer (principal); L97.522 Non-pressure chronic ulcer of other part of left foot with fat layer exposed; E11.610 Type 2 diabetes mellitus with diabetic neuropathic arthropathy; E11.42 Type 2 diabetes mellitus with diabetic polyneuropathy; E11.69 Type 2 diabetes mellitus with other specified complication; M86.572 Other chronic hematogenous osteomyelitis, left ankle and foot; J43.9 Emphysema, unspecified; B95.62 Methicillin resistant Staphylococcus aureus infection as the cause of diseases classified elsewhere; I25.2 Old myocardial infarction; I10 Essential (primary) hypertension; K21.9 Gastro-esophageal reflux disease without esophagitis; I87.2 Venous insufficiency (chronic) (peripheral); F17.200 Nicotine dependence, unspecified, uncomplicated; F10.10 Alcohol abuse, uncomplicated; Z79.899 Other long term (current) drug therapy
CPT/HCPCS: 97597; A6209; A6021; A6206; A6446

== ENCOUNTER 2018-08-03 09:52 | Day surgery (SDC) | payer MEDICAID ==
[2018-08-03] MEDS ORDERED: LIDOcaine/PRILOcaine 5gm cream TP ONE (11:20)
--- NOTE | 2018-08-03 13:00 | NUR ---
Patient arrived via wheelchair from [facility] and was admitted to outpatient wound care for physician visit with Jorge Alberto Joshi MD. Dressing removed, wound cleansed and Emla cream applied per order. Patient assessed for changes in conditions, medications and medical history. 1210 - Dr. Joshi at bedside accompanied by RN. Wound assessed, time out performed by MD/RN. Wound debrided and procedure performed as detailed in the physician progress/procedure note. Plan of care discussed with patient. Dressings placed per MD orders. Patient instructed on the signs and symptoms of infection and to call the Wound Center if any occur or to go to the ED if we are closed: Increased pain in wound Increase in drainage from the wound Redness in the skin surrounding the wound Bleeding from the wound Temperature of 101 or greater Patient instructed that the weight of their body puts a large amount of pressure on their wounds. This pressure keeps the new tissue from growing and inhibits new blood vessels from forming. Explained that, if they continue to bear weight on a body part that has a wound, the time it takes to heal the wound increases, the wound may get worse or the wound may not heal at all. Patient verbalized understanding of all discharge instructions and plan of care and exited via wheelchair out to [facility] in stable condition with no sign or symptom of distress at time of discharge.
== END 2018-08-03 12:33 | disposition home or self-care (01) ==
LOC: WOUND CARE 09:52
PROVIDERS: ATTEND Surgery
DX: E11.621 Type 2 diabetes mellitus with foot ulcer (principal); L97.522 Non-pressure chronic ulcer of other part of left foot with fat layer exposed; E11.610 Type 2 diabetes mellitus with diabetic neuropathic arthropathy; E11.42 Type 2 diabetes mellitus with diabetic polyneuropathy; E11.69 Type 2 diabetes mellitus with other specified complication; M86.572 Other chronic hematogenous osteomyelitis, left ankle and foot; J43.9 Emphysema, unspecified; B95.62 Methicillin resistant Staphylococcus aureus infection as the cause of diseases classified elsewhere; I25.2 Old myocardial infarction; I10 Essential (primary) hypertension; K21.9 Gastro-esophageal reflux disease without esophagitis; I87.2 Venous insufficiency (chronic) (peripheral); F17.200 Nicotine dependence, unspecified, uncomplicated; F10.10 Alcohol abuse, uncomplicated; Z79.899 Other long term (current) drug therapy
CPT/HCPCS: 15275; A6209; A6222; Q4186; A6250; A6446

== ENCOUNTER 2018-08-10 09:50 | Outpatient (CLI) | payer MEDICAID ==
--- NOTE | 2018-08-10 14:31 | NUR ---
Patient arrived safely into [facility] via wheelchair. Patient was admitted to outpatient wound care for physician visit with Jorge Alberto Joshi MD. Dressing removed, wound cleansed and lidocaine applied per order. Patient assessed for changes in conditions, medications and medical history. Dr. Joshi at bedside accompanied by RN. Wound assessed and plan of care discussed with patient. Dressings placed per MD orders. Patient instructed on the signs and symptoms of infection and to call the Wound Center if any occur or to go to the ED if we are closed: Increased pain in wound Increase in drainage from the wound Redness in the skin surrounding the wound Bleeding from the wound Temperature of 101 or greater Patient instructed that the weight of their body puts a large amount of pressure on their wounds. This pressure keeps the new tissue from growing and inhibits new blood vessels from forming. Explained that, if they continue to bear weight on a body part that has a wound, the time it takes to heal the wound increases, the wound may get worse or the wound may not heal at all. Patient verbalized understanding of all discharge instructions and plan of care. Patient left in stable condition with no sign or symptom of distress at time of discharge. Addendum: 08/10/18 at 1433 by Savannah Tyson RN Amended: Links added.
== END 2018-08-10 10:50 | disposition home or self-care (01) ==
LOC: WOUND CARE 09:50 → EDSTATUS 10:00 → WOUND CARE 10:50
PROVIDERS: ATTEND Surgery
DX: E11.621 Type 2 diabetes mellitus with foot ulcer (principal); L97.522 Non-pressure chronic ulcer of other part of left foot with fat layer exposed; E11.610 Type 2 diabetes mellitus with diabetic neuropathic arthropathy; E11.42 Type 2 diabetes mellitus with diabetic polyneuropathy; E11.69 Type 2 diabetes mellitus with other specified complication; M86.572 Other chronic hematogenous osteomyelitis, left ankle and foot; J43.9 Emphysema, unspecified; B95.62 Methicillin resistant Staphylococcus aureus infection as the cause of diseases classified elsewhere; I25.2 Old myocardial infarction; I10 Essential (primary) hypertension; K21.9 Gastro-esophageal reflux disease without esophagitis; I87.2 Venous insufficiency (chronic) (peripheral); F17.200 Nicotine dependence, unspecified, uncomplicated; F10.10 Alcohol abuse, uncomplicated; Z79.899 Other long term (current) drug therapy
CPT/HCPCS: A6209; G0463; A6206; A6446

== ENCOUNTER 2018-08-17 09:57 | Day surgery (SDC) | payer MEDICAID ==
[2018-08-17] MEDS ORDERED: LIDOcaine/PRILOcaine 5gm cream TP ONE (10:34)
--- NOTE | 2018-08-17 14:40 | NUR ---
Patient ambulated independently from [facility] and was admitted to outpatient wound care for physician visit. Dressings removed, wound cleansed. Patient assessment completed with review of patient's medical history and current medications. 1050-Dr. Joshi at bedside accompanied by RN. Wound assessed, time-out performed by MD/RN. Wound debrided as detailed in the physician progress/procedure note. Plan of care discussed with patient. Dressings placed per MD orders. Patient instructed on the signs and symptoms of infection and to call the Wound Center if any occur or to go to the ED if we are closed: Increased pain in the wound Increase in drainage from the wound Redness in the skin surrounding the wound Bleeding from the wound Temperature of 101F or greater Patient instructed that the weight of their body puts a large amount of pressure on their wounds. This pressure keeps the new tissue from growing and inhibits new blood vessels from forming. Explained that, if they continue to bear weight on a body part that has a wound, the time it takes to heal the wound increases, the wound may get worse, or the wound may not heal at all. Patient verbalized understanding of all discharge instructions and plan of care. Patient ambulated independently out to [facility] in stable condition with no signs or symptoms of distress at time of discharge.
== END 2018-08-17 11:14 | disposition home or self-care (01) ==
LOC: WOUND CARE 09:57
PROVIDERS: ATTEND Surgery
DX: E11.621 Type 2 diabetes mellitus with foot ulcer (principal); L97.522 Non-pressure chronic ulcer of other part of left foot with fat layer exposed; E11.610 Type 2 diabetes mellitus with diabetic neuropathic arthropathy; E11.42 Type 2 diabetes mellitus with diabetic polyneuropathy; E11.69 Type 2 diabetes mellitus with other specified complication; M86.572 Other chronic hematogenous osteomyelitis, left ankle and foot; J43.9 Emphysema, unspecified; B95.62 Methicillin resistant Staphylococcus aureus infection as the cause of diseases classified elsewhere; I25.2 Old myocardial infarction; I10 Essential (primary) hypertension; K21.9 Gastro-esophageal reflux disease without esophagitis; I87.2 Venous insufficiency (chronic) (peripheral); F17.200 Nicotine dependence, unspecified, uncomplicated; F10.10 Alcohol abuse, uncomplicated; Z79.899 Other long term (current) drug therapy
CPT/HCPCS: 97597; A6209; A6021; A6206

== ENCOUNTER 2018-08-24 09:22 | Day surgery (SDC) | payer MEDICAID ==
[2018-08-24] MEDS ORDERED: LIDOcaine/PRILOcaine 5gm cream TP ONE (11:00)
--- NOTE | 2018-08-24 13:28 | NUR ---
Patient arrived safely into [facility] via wheelchair. Patient admitted to outpatient wound care clinic for physician visit with Jorge Alberto Joshi MD. Dressings removed, wound cleansed and Emla cream applied per order. Patient assessed for changes in conditions, medications and medical history. Dr. Joshi at bedside accompanied by RN. Wound assessed, time out performed by MD/RN. Wound debrided as detailed in the physician progress/procedure note. Plan of care discussed with patient. Dressings placed per MD orders. Patient instructed on the signs and symptoms of infection and to call the Wound Center if any occur or to go to the ED if we are closed: Increased pain in wound Increase in drainage from the wound Redness in the skin surrounding the wound Bleeding from the wound Temperature of 101 or greater Patient instructed that the weight of their body puts a large amount of pressure on their wounds. This pressure keeps the new tissue from growing and inhibits new blood vessels from forming. Explained that, if they continue to bear weight on a body part that has a wound, the time it takes to heal the wound increases, the wound may get worse or the wound may not heal at all. Patient verbalized understanding of all discharge instructions and plan of care. Patient left in stable condition with no sign or symptom of distress at time of discharge. Addendum: 08/24/18 at 1333 by Savannah Tyson RN Amended: Links added.
== END 2018-08-24 11:28 | disposition home or self-care (01) ==
LOC: WOUND CARE 09:22
PROVIDERS: ATTEND Surgery
DX: E11.621 Type 2 diabetes mellitus with foot ulcer (principal); L97.522 Non-pressure chronic ulcer of other part of left foot with fat layer exposed; E11.610 Type 2 diabetes mellitus with diabetic neuropathic arthropathy; E11.42 Type 2 diabetes mellitus with diabetic polyneuropathy; E11.69 Type 2 diabetes mellitus with other specified complication; M86.572 Other chronic hematogenous osteomyelitis, left ankle and foot; J43.9 Emphysema, unspecified; B95.62 Methicillin resistant Staphylococcus aureus infection as the cause of diseases classified elsewhere; I25.2 Old myocardial infarction; I10 Essential (primary) hypertension; K21.9 Gastro-esophageal reflux disease without esophagitis; I87.2 Venous insufficiency (chronic) (peripheral); F17.200 Nicotine dependence, unspecified, uncomplicated; F10.10 Alcohol abuse, uncomplicated; Z79.899 Other long term (current) drug therapy
CPT/HCPCS: 15275; A6223; Q4186; A6250; A6446

== ENCOUNTER 2018-09-01 10:06 | Day surgery (SDC) | payer MEDICAID ==
--- NOTE | 2018-09-01 12:15 | NUR ---
Patient arrived via wheelchair from [facility] and was admitted to outpatient wound care for physician visit with Jorge Alberto Joshi MD. Placed in contact isolation precautions per hospital policy. Dressing removed, wound cleansed Patient assessed for changes in conditions, medications and medical history. 1135 - Dr. Joshi at bedside accompanied by RN. Wound assessed, orders written. Plan of care discussed with patient. Dressings placed per MD orders. Patient instructed on the signs and symptoms of infection and to call the Wound Center if any occur or to go to the ED if we are closed: Increased pain in wound Increase in drainage from the wound Redness in the skin surrounding the wound Bleeding from the wound Temperature of 101 or greater Patient instructed that the weight of their body puts a large amount of pressure on their wounds. This pressure keeps the new tissue from growing and inhibits new blood vessels from forming. Explained that, if they continue to bear weight on a body part that has a wound, the time it takes to heal the wound increases, the wound may get worse or the wound may not heal at all. Patient verbalized understanding of all discharge instructions and plan of care and exited via wheelchair independently out to [facility] in stable condition with no sign or symptom of distress at time of discharge.
== END 2018-09-01 11:57 | disposition home or self-care (01) ==
LOC: WOUND CARE 10:06
PROVIDERS: ATTEND Surgery
DX: E11.621 Type 2 diabetes mellitus with foot ulcer (principal); L97.522 Non-pressure chronic ulcer of other part of left foot with fat layer exposed; E11.610 Type 2 diabetes mellitus with diabetic neuropathic arthropathy; E11.42 Type 2 diabetes mellitus with diabetic polyneuropathy; E11.69 Type 2 diabetes mellitus with other specified complication; M86.572 Other chronic hematogenous osteomyelitis, left ankle and foot; J43.9 Emphysema, unspecified; B95.62 Methicillin resistant Staphylococcus aureus infection as the cause of diseases classified elsewhere; I25.2 Old myocardial infarction; I10 Essential (primary) hypertension; K21.9 Gastro-esophageal reflux disease without esophagitis; I87.2 Venous insufficiency (chronic) (peripheral); F17.200 Nicotine dependence, unspecified, uncomplicated; F10.10 Alcohol abuse, uncomplicated; Z79.899 Other long term (current) drug therapy
CPT/HCPCS: A6209; A6222; G0463; A6446

== ENCOUNTER 2018-09-08 09:45 | Day surgery (SDC) | payer MEDICAID ==
[2018-09-08] MEDS ORDERED: LIDOcaine/PRILOcaine 5gm cream TP ONE (10:10)
--- NOTE | 2018-09-08 11:30 | NUR ---
Patient arrived via wheelchair from [facility] and was admitted to outpatient wound care for physician visit with Jorge Alberto Joshi MD. Placed in contact isolation precautions per hospital policy. Dressing removed, wound cleansed. Patient assessed for changes in conditions, medications and medical history. 1030 - Dr. Joshi at bedside accompanied by RN. Wound assessed, time out performed by MD/RN. Wound debrided as detailed in the physician progress/procedure note. Plan of care discussed with patient. Dressings placed per MD orders. Patient instructed on the signs and symptoms of infection and to call the Wound Center if any occur or to go to the ED if we are closed: Increased pain in wound Increase in drainage from the wound Redness in the skin surrounding the wound Bleeding from the wound Temperature of 101 or greater Patient instructed that the weight of their body puts a large amount of pressure on their wounds. This pressure keeps the new tissue from growing and inhibits new blood vessels from forming. Explained that, if they continue to bear weight on a body part that has a wound, the time it takes to heal the wound increases, the wound may get worse or the wound may not heal at all. Patient verbalized understanding of all discharge instructions and plan of care and exited via wheelchair out to [facility] in stable condition with no sign or symptom of distress at time of discharge.
== END 2018-09-08 11:40 | disposition home or self-care (01) ==
LOC: WOUND CARE 09:45
PROVIDERS: ATTEND Surgery
DX: E11.621 Type 2 diabetes mellitus with foot ulcer (principal); L97.522 Non-pressure chronic ulcer of other part of left foot with fat layer exposed; E11.610 Type 2 diabetes mellitus with diabetic neuropathic arthropathy; E11.42 Type 2 diabetes mellitus with diabetic polyneuropathy; E11.69 Type 2 diabetes mellitus with other specified complication; M86.572 Other chronic hematogenous osteomyelitis, left ankle and foot; J43.9 Emphysema, unspecified; B95.62 Methicillin resistant Staphylococcus aureus infection as the cause of diseases classified elsewhere; I25.2 Old myocardial infarction; I10 Essential (primary) hypertension; K21.9 Gastro-esophageal reflux disease without esophagitis; I87.2 Venous insufficiency (chronic) (peripheral); F17.200 Nicotine dependence, unspecified, uncomplicated; F10.10 Alcohol abuse, uncomplicated; Z79.899 Other long term (current) drug therapy
CPT/HCPCS: 97597; A6209; A6021; A6206; A6446

== ENCOUNTER 2018-09-17 18:30 | Emergency (ER) | payer MEDICAID ==
[~2018-09-17] VITALS: Ht 188 cm; Wt 109.1 kg
[2018-09-17] MEDS ORDERED: HYDROcodone/acetaminophen 5mg/325mg tablet PO ONE (21:15)
--- NOTE | 2018-09-17 22:19 | NUR ---
vascular study done
[2018-09-17] MEDS ORDERED: SULF1TAB49 PO (22:28)
[2018-09-17] MEDS ORDERED: sulfamethoxazole/trimethoprim DS (800/160mg) tablet PO ONE (22:30)
[2018-09-17 22:48] VITALS: BP 163/83
== END 2018-09-17 23:13 | disposition home or self-care (01) ==
LOC: ER 18:31
DX: R60.0 Localized edema (principal); M79.605 Pain in left leg; I50.9 Heart failure, unspecified; J43.9 Emphysema, unspecified; Z79.899 Other long term (current) drug therapy; Z98.890 Other specified postprocedural states
CPT/HCPCS: 93971; 99284

== ENCOUNTER 2018-09-24 09:36 | Day surgery (SDC) | payer MEDICAID ==
[~2018-09-24 09:36] MED LIST changes: +SULF1TAB49 PO
[2018-09-24] MEDS ORDERED: LIDOcaine/PRILOcaine 5gm cream TP ONE (11:39)
--- NOTE | 2018-09-24 15:37 | NUR ---
Patient arrived safely into [facility] via wheelchair. Patient was admitted to outpatient wound care for physician visit with Jorge Alberto Joshi MD. Dressing removed, wound cleansed and lidocaine applied per order. Patient assessed for changes in conditions, medications and medical history. Dr. Joshi at bedside accompanied by RN. Wound assessed, time out performed by MD/RN. Wound debrided as detailed in the physician progress/procedure note. Epifix applied to wound by . Plan of care discussed with patient. Dressings placed per MD orders. Patient instructed on the signs and symptoms of infection and to call the Wound Center if any occur or to go to the ED if we are closed: Increased pain in wound Increase in drainage from the wound Redness in the skin surrounding the wound Bleeding from the wound Temperature of 101 or greater Patient instructed that the weight of their body puts a large amount of pressure on their wounds. This pressure keeps the new tissue from growing and inhibits new blood vessels from forming. Explained that, if they continue to bear weight on a body part that has a wound, the time it takes to heal the wound increases, the wound may get worse or the wound may not heal at all. Patient verbalized understanding of all discharge instructions and plan of care. Patient left in stable condition with no sign or symptom of distress at time of discharge. Addendum: 09/24/18 at 1540 by Savannah Tyson RN Amended: Links added.
== END 2018-09-24 12:11 | disposition home or self-care (01) ==
LOC: WOUND CARE 09:36
PROVIDERS: ATTEND Surgery
DX: E11.621 Type 2 diabetes mellitus with foot ulcer (principal); L97.522 Non-pressure chronic ulcer of other part of left foot with fat layer exposed; E11.610 Type 2 diabetes mellitus with diabetic neuropathic arthropathy; E11.42 Type 2 diabetes mellitus with diabetic polyneuropathy; E11.69 Type 2 diabetes mellitus with other specified complication; M86.572 Other chronic hematogenous osteomyelitis, left ankle and foot; J43.9 Emphysema, unspecified; B95.62 Methicillin resistant Staphylococcus aureus infection as the cause of diseases classified elsewhere; I25.2 Old myocardial infarction; I10 Essential (primary) hypertension; K21.9 Gastro-esophageal reflux disease without esophagitis; I87.2 Venous insufficiency (chronic) (peripheral); F17.200 Nicotine dependence, unspecified, uncomplicated; F10.10 Alcohol abuse, uncomplicated; Z79.899 Other long term (current) drug therapy
CPT/HCPCS: 15275; A6209; A6222; Q4186; 97597; A6250; A6446

== ENCOUNTER 2018-09-29 10:25 | Day surgery (SDC) | payer MEDICAID ==
[~2018-09-29 10:25] MED LIST changes: -SULF1TAB49 PO
[2018-09-29] MEDS ORDERED: LIDOcaine/PRILOcaine 5gm cream TP ONE (10:44)
--- NOTE | 2018-09-29 12:30 | NUR ---
Patient arrived via wheelchair from [facility] and was admitted to outpatient wound care for physician visit with Jorge Alberto Johsi MD. Placed in contact isolation precautions per hospital policy. Dressing removed, wound cleansed. Patient assessed for changes in conditions, medications and medical history. 1155 - Dr. Joshi at bedside accompanied by RN. Wound assessed, time out performed by MD/RN. Wound debrided as detailed in the physician progress/procedure note. Plan of care discussed with patient. Dressings placed per MD orders. Patient instructed on the signs and symptoms of infection and to call the Wound Center if any occur or to go to the ED if we are closed: Increased pain in wound Increase in drainage from the wound Redness in the skin surrounding the wound Bleeding from the wound Temperature of 101 or greater Patient instructed that the weight of their body puts a large amount of pressure on their wounds. This pressure keeps the new tissue from growing and inhibits new blood vessels from forming. Explained that, if they continue to bear weight on a body part that has a wound, the time it takes to heal the wound increases, the wound may get worse or the wound may not heal at all. Patient verbalized understanding of all discharge instructions and plan of care and exited via wheelchair independently out to [facility] in stable condition with no sign or symptom of distress at time of discharge.
== END 2018-09-29 12:17 | disposition home or self-care (01) ==
LOC: WOUND CARE 10:25
PROVIDERS: ATTEND Surgery
DX: E11.621 Type 2 diabetes mellitus with foot ulcer (principal); L97.522 Non-pressure chronic ulcer of other part of left foot with fat layer exposed; E11.610 Type 2 diabetes mellitus with diabetic neuropathic arthropathy; E11.42 Type 2 diabetes mellitus with diabetic polyneuropathy; E11.69 Type 2 diabetes mellitus with other specified complication; M86.572 Other chronic hematogenous osteomyelitis, left ankle and foot; J43.9 Emphysema, unspecified; B95.62 Methicillin resistant Staphylococcus aureus infection as the cause of diseases classified elsewhere; I25.2 Old myocardial infarction; I10 Essential (primary) hypertension; K21.9 Gastro-esophageal reflux disease without esophagitis; I87.2 Venous insufficiency (chronic) (peripheral); F17.200 Nicotine dependence, unspecified, uncomplicated; F10.10 Alcohol abuse, uncomplicated; Z79.899 Other long term (current) drug therapy
CPT/HCPCS: 97597; A6222; A6021; A6206; A6446

== ENCOUNTER 2018-10-07 09:30 | Day surgery (SDC) | payer MEDICAID ==
[2018-10-07] MEDS ORDERED: LIDOcaine/PRILOcaine 5gm cream TP ONE (10:00)
--- NOTE | 2018-10-07 12:21 | NUR ---
Patient arrived safely into [facility] via wheelchair. Patient was admitted to outpatient wound care clinic for physician visit with Jorge Alberto Joshi MD. Dressing removed, wound cleansed and lidocaine applied per order. Patient assessed for changes in conditions, medications and medical history. Dr. Joshi at bedside accompanied by RN. Wound assessed, time out performed by MD/RN. Wound debrided as detailed in the physician progress/procedure note. Plan of care discussed with patient. Dressings placed per MD orders. Patient instructed on the signs and symptoms of infection and to call the Wound Center if any occur or to go to the ED if we are closed: Increased pain in wound Increase in drainage from the wound Redness in the skin surrounding the wound Bleeding from the wound Temperature of 101 or greater Patient instructed that the weight of their body puts a large amount of pressure on their wounds. This pressure keeps the new tissue from growing and inhibits new blood vessels from forming. Explained that, if they continue to bear weight on a body part that has a wound, the time it takes to heal the wound increases, the wound may get worse or the wound may not heal at all. Patient verbalized understanding of all discharge instructions and plan of care. Patient left in stable condition with no sign or symptom of distress at time of discharge. Addendum: 10/07/18 at 1222 by Savannah Tyson RN Amended: Links added.
== END 2018-10-07 11:00 | disposition home or self-care (01) ==
LOC: WOUND CARE 09:30
PROVIDERS: ATTEND Surgery
DX: E11.621 Type 2 diabetes mellitus with foot ulcer (principal); L97.522 Non-pressure chronic ulcer of other part of left foot with fat layer exposed; E11.610 Type 2 diabetes mellitus with diabetic neuropathic arthropathy; E11.42 Type 2 diabetes mellitus with diabetic polyneuropathy; E11.69 Type 2 diabetes mellitus with other specified complication; M86.572 Other chronic hematogenous osteomyelitis, left ankle and foot; J43.9 Emphysema, unspecified; B95.62 Methicillin resistant Staphylococcus aureus infection as the cause of diseases classified elsewhere; I25.2 Old myocardial infarction; I10 Essential (primary) hypertension; K21.9 Gastro-esophageal reflux disease without esophagitis; I87.2 Venous insufficiency (chronic) (peripheral); F17.200 Nicotine dependence, unspecified, uncomplicated; F10.10 Alcohol abuse, uncomplicated; Z79.899 Other long term (current) drug therapy
CPT/HCPCS: 97597; A6021; A6196; A6446

== ENCOUNTER 2018-11-04 09:20 | Day surgery (SDC) | payer MEDICAID ==
[2018-11-04] MEDS ORDERED: LIDOcaine/PRILOcaine 5gm cream TP ONE (09:53)
--- NOTE | 2018-11-04 11:00 | NUR ---
Patient arrived with scooter from [facility] and was admitted to outpatient wound care for physician visit with Jorge Alberto Joshi MD. Placed in contact isolation precautions per hospital policy. Dressing removed, wound cleansed and Emla cream applied per order. Patient assessed for changes in conditions, medications and medical history. 1020 - Dr. Joshi at bedside accompanied by RN. Wound assessed, time out performed by MD/RN. Wound debrided and procedure performed as detailed in the physician progress/procedure note. Plan of care discussed with patient. Dressings placed per MD orders. Patient instructed on the signs and symptoms of infection and to call the Wound Center if any occur or to go to the ED if we are closed: Increased pain in wound Increase in drainage from the wound Redness in the skin surrounding the wound Bleeding from the wound Temperature of 101 or greater Patient instructed that the weight of their body puts a large amount of pressure on their wounds. This pressure keeps the new tissue from growing and inhibits new blood vessels from forming. Explained that, if they continue to bear weight on a body part that has a wound, the time it takes to heal the wound increases, the wound may get worse or the wound may not heal at all. Patient verbalized understanding of all discharge instructions and plan of care and exited via scooter independently out to [facility] in stable condition with no sign or symptom of distress at time of discharge.
== END 2018-11-04 11:57 | disposition home or self-care (01) ==
LOC: WOUND CARE 09:20
PROVIDERS: ATTEND Surgery
DX: E11.621 Type 2 diabetes mellitus with foot ulcer (principal); L97.522 Non-pressure chronic ulcer of other part of left foot with fat layer exposed; E11.610 Type 2 diabetes mellitus with diabetic neuropathic arthropathy; E11.42 Type 2 diabetes mellitus with diabetic polyneuropathy; E11.69 Type 2 diabetes mellitus with other specified complication; M86.572 Other chronic hematogenous osteomyelitis, left ankle and foot; J43.9 Emphysema, unspecified; B95.62 Methicillin resistant Staphylococcus aureus infection as the cause of diseases classified elsewhere; I25.2 Old myocardial infarction; I10 Essential (primary) hypertension; K21.9 Gastro-esophageal reflux disease without esophagitis; I87.2 Venous insufficiency (chronic) (peripheral); F17.200 Nicotine dependence, unspecified, uncomplicated; F10.10 Alcohol abuse, uncomplicated; Z79.899 Other long term (current) drug therapy
CPT/HCPCS: 15275; A6209; A6222; Q4133; A6250; A6446

== ENCOUNTER 2018-11-11 09:45 | Outpatient (CLI) | payer MEDICAID ==
--- NOTE | 2018-11-11 13:38 | NUR ---
Patient arrived safely into [facility] via wheelchair. Patient admitted to outpatient wound care for physician visit with Jorge Alberto Joshi MD. Dressing removed, wound cleansed and Emla cream applied per order. Patient assessed for changes in conditions, medications and medical history. Dr. Joshi at bedside accompanied by RN. Wound assessed and no debridement was done. Plan of care discussed with patient. Dressings placed per MD orders. Patient instructed on the signs and symptoms of infection and to call the Wound Center if any occur or to go to the ED if we are closed: Increased pain in wound Increase in drainage from the wound Redness in the skin surrounding the wound Bleeding from the wound Temperature of 101 or greater Patient instructed that the weight of their body puts a large amount of pressure on their wounds. This pressure keeps the new tissue from growing and inhibits new blood vessels from forming. Explained that, if they continue to bear weight on a body part that has a wound, the time it takes to heal the wound increases, the wound may get worse or the wound may not heal at all. Patient verbalized understanding of all discharge instructions and plan of care. Patient left in stable condition with no sign or symptom of distress at time of discharge. Addendum: 11/11/18 at 1341 by Savannah Tyson RN Amended: Links added.
== END 2018-11-11 11:03 | disposition home or self-care (01) ==
LOC: WOUND CARE 09:45 → EDSTATUS 10:00 → WOUND CARE 11:03
PROVIDERS: ATTEND Surgery
DX: E11.621 Type 2 diabetes mellitus with foot ulcer (principal); L97.522 Non-pressure chronic ulcer of other part of left foot with fat layer exposed; E11.610 Type 2 diabetes mellitus with diabetic neuropathic arthropathy; E11.42 Type 2 diabetes mellitus with diabetic polyneuropathy; E11.69 Type 2 diabetes mellitus with other specified complication; M86.572 Other chronic hematogenous osteomyelitis, left ankle and foot; J43.9 Emphysema, unspecified; B95.62 Methicillin resistant Staphylococcus aureus infection as the cause of diseases classified elsewhere; I25.2 Old myocardial infarction; I10 Essential (primary) hypertension; K21.9 Gastro-esophageal reflux disease without esophagitis; I87.2 Venous insufficiency (chronic) (peripheral); F17.200 Nicotine dependence, unspecified, uncomplicated; F10.10 Alcohol abuse, uncomplicated; Z79.899 Other long term (current) drug therapy
CPT/HCPCS: A4663; A6021; A6154; A6213; A6446; G0463

== ENCOUNTER 2018-11-18 09:35 | Day surgery (SDC) | payer MEDICAID ==
--- NOTE | 2018-11-18 14:33 | NUR ---
Patient arrived safely into [facility] via wheelchair. Patient admitted to outpatient wound care for physician visit with Jorge Alberto Joshi MD. Dressing removed, wound cleansed and lidocaine applied per order. Patient assessed for changes in conditions, medications and medical history. Dr. Joshi at bedside accompanied by RN. Wound assessed, time out performed by MD/RN. Wound debrided as detailed in the physician progress/procedure note. Plan of care discussed with patient. Dressings placed per MD orders. Patient instructed on the signs and symptoms of infection and to call the Wound Center if any occur or to go to the ED if we are closed: Increased pain in wound Increase in drainage from the wound Redness in the skin surrounding the wound Bleeding from the wound Temperature of 101 or greater Patient instructed that the weight of their body puts a large amount of pressure on their wounds. This pressure keeps the new tissue from growing and inhibits new blood vessels from forming. Explained that, if they continue to bear weight on a body part that has a wound, the time it takes to heal the wound increases, the wound may get worse or the wound may not heal at all. Patient verbalized understanding of all discharge instructions and plan of care. Patient left in stable condition with no sign or symptom of distress at time of discharge. Addendum: 11/18/18 at 1435 by Savannah Tyson RN Amended: Links added.
== END 2018-11-18 11:20 | disposition home or self-care (01) ==
LOC: WOUND CARE 09:35
PROVIDERS: ATTEND Surgery
DX: E11.621 Type 2 diabetes mellitus with foot ulcer (principal); L97.522 Non-pressure chronic ulcer of other part of left foot with fat layer exposed; E11.610 Type 2 diabetes mellitus with diabetic neuropathic arthropathy; E11.42 Type 2 diabetes mellitus with diabetic polyneuropathy; E11.69 Type 2 diabetes mellitus with other specified complication; M86.572 Other chronic hematogenous osteomyelitis, left ankle and foot; J43.9 Emphysema, unspecified; B95.62 Methicillin resistant Staphylococcus aureus infection as the cause of diseases classified elsewhere; I25.2 Old myocardial infarction; I10 Essential (primary) hypertension; K21.9 Gastro-esophageal reflux disease without esophagitis; I87.2 Venous insufficiency (chronic) (peripheral); F17.200 Nicotine dependence, unspecified, uncomplicated; F10.10 Alcohol abuse, uncomplicated; Z79.899 Other long term (current) drug therapy
CPT/HCPCS: 15275; A6209; A6222; Q4187; A4663; A6021; A6250; A6446

== ENCOUNTER 2018-11-25 09:30 | Day surgery (SDC) | payer MEDICAID ==
[2018-11-25] MEDS ORDERED: LIDOcaine 2% 5ml jelly ONE (11:07)
--- NOTE | 2018-11-25 13:09 | NUR ---
Patient arrived safely into [facility] via wheelchair. Patient was admitted to outpatient wound care for physician visit with Jorge Alberto Joshi MD. Dressing removed, wound cleansed and Emla cream applied per order. Patient assessed for changes in conditions, medications and medical history. Dr. Joshi at bedside accompanied by RN. Wound assessed, time out performed by MD/RN. Wound debrided as detailed in the physician progress/procedure note. Plan of care discussed with patient. Dressings placed per MD orders. Patient instructed on the signs and symptoms of infection and to call the Wound Center if any occur or to go to the ED if we are closed: Increased pain in wound Increase in drainage from the wound Redness in the skin surrounding the wound Bleeding from the wound Temperature of 101 or greater Patient instructed that the weight of their body puts a large amount of pressure on their wounds. This pressure keeps the new tissue from growing and inhibits new blood vessels from forming. Explained that, if they continue to bear weight on a body part that has a wound, the time it takes to heal the wound increases, the wound may get worse or the wound may not heal at all. Patient verbalized understanding of all discharge instructions and plan of care. Patient left in stable condition with no sign or symptom of distress at time of discharge. Addendum: 11/25/18 at 1312 by Savannah Tyson RN Amended: Links added.
== END 2018-11-25 11:30 | disposition home or self-care (01) ==
LOC: WOUND CARE 09:30
PROVIDERS: ATTEND Surgery
DX: E11.621 Type 2 diabetes mellitus with foot ulcer (principal); L97.522 Non-pressure chronic ulcer of other part of left foot with fat layer exposed; E11.610 Type 2 diabetes mellitus with diabetic neuropathic arthropathy; E11.42 Type 2 diabetes mellitus with diabetic polyneuropathy; E11.69 Type 2 diabetes mellitus with other specified complication; M86.572 Other chronic hematogenous osteomyelitis, left ankle and foot; J43.9 Emphysema, unspecified; B95.62 Methicillin resistant Staphylococcus aureus infection as the cause of diseases classified elsewhere; I25.2 Old myocardial infarction; I10 Essential (primary) hypertension; K21.9 Gastro-esophageal reflux disease without esophagitis; I87.2 Venous insufficiency (chronic) (peripheral); F17.200 Nicotine dependence, unspecified, uncomplicated; F10.10 Alcohol abuse, uncomplicated; Z79.899 Other long term (current) drug therapy
CPT/HCPCS: 11042; A6266; A4663; A6021; A6446

== ENCOUNTER 2018-11-27 09:50 | Outpatient (CLI) | payer MEDICAID ==
--- NOTE | 2018-11-27 11:44 | NUR ---
Patient arrived safely into via wheelchair. Patientwas admitted to outpatient wound care for physician visit with Jorge Alberto Joshi MD. Dressing removed, wound cleansed and Emla cream applied per order. Patient assessed for changes in conditions, medications and medical history. Dr. Joshi at bedside accompanied by RN. Wound assessed and no debridement was done. Plan of care discussed with patient. Dressings placed per MD orders. Patient instructed on the signs and symptoms of infection and to call the Wound Center if any occur or to go to the ED if we are closed: Increased pain in wound Increase in drainage from the wound Redness in the skin surrounding the wound Bleeding from the wound Temperature of 101 or greater Patient instructed that the weight of their body puts a large amount of pressure on their wounds. This pressure keeps the new tissue from growing and inhibits new blood vessels from forming. Explained that, if they continue to bear weight on a body part that has a wound, the time it takes to heal the wound increases, the wound may get worse or the wound may not heal at all. Patient verbalized understanding of all discharge instructions and plan of care and ambulated independently out to [facility] in stable condition with no sign or symptom of distress at time of discharge. Addendum: 11/27/18 at 1151 by Savannah Tyson RN Amended: Links added.
== END 2018-11-27 10:40 | disposition home or self-care (01) ==
LOC: WOUND CARE 09:50 → EDSTATUS 10:00 → WOUND CARE 10:40
PROVIDERS: ATTEND Surgery
DX: E11.621 Type 2 diabetes mellitus with foot ulcer (principal); L97.522 Non-pressure chronic ulcer of other part of left foot with fat layer exposed; E11.610 Type 2 diabetes mellitus with diabetic neuropathic arthropathy; E11.42 Type 2 diabetes mellitus with diabetic polyneuropathy; E11.69 Type 2 diabetes mellitus with other specified complication; M86.572 Other chronic hematogenous osteomyelitis, left ankle and foot; J43.9 Emphysema, unspecified; B95.62 Methicillin resistant Staphylococcus aureus infection as the cause of diseases classified elsewhere; I25.2 Old myocardial infarction; I10 Essential (primary) hypertension; K21.9 Gastro-esophageal reflux disease without esophagitis; I87.2 Venous insufficiency (chronic) (peripheral); F17.200 Nicotine dependence, unspecified, uncomplicated; F10.10 Alcohol abuse, uncomplicated; Z79.899 Other long term (current) drug therapy
CPT/HCPCS: A6266; G0463; A4663; A6196; A6446; A6449

== ENCOUNTER 2018-12-02 09:40 | Day surgery (SDC) | payer MEDICAID ==
[2018-12-02] MEDS ORDERED: LIDOcaine 2% 5ml jelly ONE (10:48)
== END 2018-12-02 12:15 | disposition home or self-care (01) ==
LOC: WOUND CARE 09:40
PROVIDERS: ATTEND Surgery
DX: E11.621 Type 2 diabetes mellitus with foot ulcer (principal); L97.522 Non-pressure chronic ulcer of other part of left foot with fat layer exposed; E11.610 Type 2 diabetes mellitus with diabetic neuropathic arthropathy; E11.42 Type 2 diabetes mellitus with diabetic polyneuropathy; E11.69 Type 2 diabetes mellitus with other specified complication; M86.572 Other chronic hematogenous osteomyelitis, left ankle and foot; J43.9 Emphysema, unspecified; B95.62 Methicillin resistant Staphylococcus aureus infection as the cause of diseases classified elsewhere; I25.2 Old myocardial infarction; I10 Essential (primary) hypertension; K21.9 Gastro-esophageal reflux disease without esophagitis; I87.2 Venous insufficiency (chronic) (peripheral); F17.200 Nicotine dependence, unspecified, uncomplicated; F10.10 Alcohol abuse, uncomplicated; Z79.899 Other long term (current) drug therapy
CPT/HCPCS: 97597; A6021; A6154; A6446

== ENCOUNTER 2018-12-09 09:15 | Day surgery (SDC) | payer MEDICAID ==
[2018-12-09] MEDS ORDERED: LIDOcaine 2% 5ml jelly ONE (10:05)
== END 2018-12-09 11:14 | disposition home or self-care (01) ==
LOC: WOUND CARE 09:15
PROVIDERS: ATTEND Surgery
DX: E11.621 Type 2 diabetes mellitus with foot ulcer (principal); L97.522 Non-pressure chronic ulcer of other part of left foot with fat layer exposed; E11.610 Type 2 diabetes mellitus with diabetic neuropathic arthropathy; E11.42 Type 2 diabetes mellitus with diabetic polyneuropathy; E11.69 Type 2 diabetes mellitus with other specified complication; M86.572 Other chronic hematogenous osteomyelitis, left ankle and foot; J43.9 Emphysema, unspecified; B95.62 Methicillin resistant Staphylococcus aureus infection as the cause of diseases classified elsewhere; I25.2 Old myocardial infarction; I10 Essential (primary) hypertension; K21.9 Gastro-esophageal reflux disease without esophagitis; I87.2 Venous insufficiency (chronic) (peripheral); F17.200 Nicotine dependence, unspecified, uncomplicated; F10.10 Alcohol abuse, uncomplicated; Z79.899 Other long term (current) drug therapy
CPT/HCPCS: 11042; A6209; A4663; A6021; A6154; A6446

== ENCOUNTER 2018-12-16 08:27 | Day surgery (SDC) | payer MEDICAID ==
[2018-12-16] MEDS ORDERED: LIDOcaine 2% 5ml jelly ONE (11:04)
== END 2018-12-16 11:45 | disposition home or self-care (01) ==
LOC: RAD 08:27
PROVIDERS: ATTEND Surgery
DX: M86.9 Osteomyelitis, unspecified (principal); I10 Essential (primary) hypertension; E11.9 Type 2 diabetes mellitus without complications
CPT/HCPCS: 78315; A6209; A9503; A4663; A6021; A6446

== ENCOUNTER 2018-12-23 09:50 | Day surgery (SDC) | payer MEDICAID ==
[2018-12-23] MEDS ORDERED: LIDOcaine 2% 5ml jelly ONE (10:30)
[2018-12-23] MEDS ORDERED: hydrocortisone 1% cream 28gm TP ONE (11:21)
== END 2018-12-23 11:40 | disposition home or self-care (01) ==
LOC: WOUND CARE 09:50
PROVIDERS: ATTEND Surgery
DX: E11.621 Type 2 diabetes mellitus with foot ulcer (principal); L97.522 Non-pressure chronic ulcer of other part of left foot with fat layer exposed; E11.610 Type 2 diabetes mellitus with diabetic neuropathic arthropathy; E11.42 Type 2 diabetes mellitus with diabetic polyneuropathy; E11.69 Type 2 diabetes mellitus with other specified complication; M86.572 Other chronic hematogenous osteomyelitis, left ankle and foot; J43.9 Emphysema, unspecified; B95.62 Methicillin resistant Staphylococcus aureus infection as the cause of diseases classified elsewhere; I25.2 Old myocardial infarction; I10 Essential (primary) hypertension; K21.9 Gastro-esophageal reflux disease without esophagitis; I87.2 Venous insufficiency (chronic) (peripheral); F17.200 Nicotine dependence, unspecified, uncomplicated; F10.10 Alcohol abuse, uncomplicated; Z79.899 Other long term (current) drug therapy
CPT/HCPCS: A4663; A6021; A6154

== ENCOUNTER 2018-12-30 09:35 | Day surgery (SDC) | payer MEDICAID ==
[2018-12-30] MEDS ORDERED: LIDOcaine 2% 5ml jelly ONE (10:29)
== END 2018-12-30 12:05 | disposition home or self-care (01) ==
LOC: WOUND CARE 09:35
PROVIDERS: ATTEND Surgery
DX: E11.621 Type 2 diabetes mellitus with foot ulcer (principal); L97.522 Non-pressure chronic ulcer of other part of left foot with fat layer exposed; E11.610 Type 2 diabetes mellitus with diabetic neuropathic arthropathy; E11.42 Type 2 diabetes mellitus with diabetic polyneuropathy; E11.69 Type 2 diabetes mellitus with other specified complication; M86.572 Other chronic hematogenous osteomyelitis, left ankle and foot; J43.9 Emphysema, unspecified; B95.62 Methicillin resistant Staphylococcus aureus infection as the cause of diseases classified elsewhere; I25.2 Old myocardial infarction; I10 Essential (primary) hypertension; K21.9 Gastro-esophageal reflux disease without esophagitis; I87.2 Venous insufficiency (chronic) (peripheral); F17.200 Nicotine dependence, unspecified, uncomplicated; F10.10 Alcohol abuse, uncomplicated; Z79.899 Other long term (current) drug therapy
CPT/HCPCS: 11042; A6209; A4663; A6021; A6154

== ENCOUNTER 2019-01-06 09:50 | Day surgery (SDC) | payer MEDICAID ==
[2019-01-06] MEDS ORDERED: LIDOcaine 2% 5ml jelly ONE (10:02)
== END 2019-01-06 11:30 | disposition home or self-care (01) ==
LOC: WOUND CARE 09:50
PROVIDERS: ATTEND Surgery
DX: E11.621 Type 2 diabetes mellitus with foot ulcer (principal); L97.522 Non-pressure chronic ulcer of other part of left foot with fat layer exposed; E11.610 Type 2 diabetes mellitus with diabetic neuropathic arthropathy; E11.42 Type 2 diabetes mellitus with diabetic polyneuropathy; E11.69 Type 2 diabetes mellitus with other specified complication; M86.572 Other chronic hematogenous osteomyelitis, left ankle and foot; J43.9 Emphysema, unspecified; B95.62 Methicillin resistant Staphylococcus aureus infection as the cause of diseases classified elsewhere; I25.2 Old myocardial infarction; I10 Essential (primary) hypertension; K21.9 Gastro-esophageal reflux disease without esophagitis; I87.2 Venous insufficiency (chronic) (peripheral); F17.200 Nicotine dependence, unspecified, uncomplicated; F10.10 Alcohol abuse, uncomplicated; Z79.899 Other long term (current) drug therapy
CPT/HCPCS: 15275; A6209; A6222; Q4101; A4663; A6250; A6446

== ENCOUNTER 2019-01-13 09:36 | Outpatient (CLI) | payer MEDICAID | END 2019-01-13 11:08 | disposition home or self-care (01) | LOC: WOUND CARE 09:36 → EDSTATUS 10:00 → WOUND CARE 11:08 | PROVIDERS: ATTEND Surgery | DX: E11.621 Type 2 diabetes mellitus with foot ulcer (principal); L97.522 Non-pressure chronic ulcer of other part of left foot with fat layer exposed; E11.610 Type 2 diabetes mellitus with diabetic neuropathic arthropathy; E11.42 Type 2 diabetes mellitus with diabetic polyneuropathy; E11.69 Type 2 diabetes mellitus with other specified complication; M86.572 Other chronic hematogenous osteomyelitis, left ankle and foot; J43.9 Emphysema, unspecified; B95.62 Methicillin resistant Staphylococcus aureus infection as the cause of diseases classified elsewhere; I25.2 Old myocardial infarction; I10 Essential (primary) hypertension; K21.9 Gastro-esophageal reflux disease without esophagitis; I87.2 Venous insufficiency (chronic) (peripheral); F17.200 Nicotine dependence, unspecified, uncomplicated; F10.10 Alcohol abuse, uncomplicated; Z79.899 Other long term (current) drug therapy | CPT/HCPCS: A6209; A6222; G0463; L3260; A4663; A6021; A6446 ==

== ENCOUNTER 2019-01-20 09:46 | Day surgery (SDC) | payer MEDICAID ==
[2019-01-20] MEDS ORDERED: LIDOcaine 2% 5ml jelly ONE (10:51)
== END 2019-01-20 12:12 | disposition home or self-care (01) ==
LOC: WOUND CARE 09:46
PROVIDERS: ATTEND Surgery
DX: E11.621 Type 2 diabetes mellitus with foot ulcer (principal); L97.522 Non-pressure chronic ulcer of other part of left foot with fat layer exposed; E11.610 Type 2 diabetes mellitus with diabetic neuropathic arthropathy; E11.42 Type 2 diabetes mellitus with diabetic polyneuropathy; E11.69 Type 2 diabetes mellitus with other specified complication; M86.572 Other chronic hematogenous osteomyelitis, left ankle and foot; J43.9 Emphysema, unspecified; B95.62 Methicillin resistant Staphylococcus aureus infection as the cause of diseases classified elsewhere; I25.2 Old myocardial infarction; I10 Essential (primary) hypertension; K21.9 Gastro-esophageal reflux disease without esophagitis; I87.2 Venous insufficiency (chronic) (peripheral); F17.200 Nicotine dependence, unspecified, uncomplicated; F10.10 Alcohol abuse, uncomplicated; Z79.899 Other long term (current) drug therapy
CPT/HCPCS: 15275; A6209; A6222; Q4101; A4663; A6250; A6441

== ENCOUNTER 2019-01-27 09:50 | Outpatient (CLI) | payer MEDICAID | END 2019-01-27 11:15 | disposition home or self-care (01) | LOC: WOUND CARE 09:50 → EDSTATUS 10:00 → WOUND CARE 11:15 | PROVIDERS: ATTEND Surgery | DX: E11.621 Type 2 diabetes mellitus with foot ulcer (principal); L97.522 Non-pressure chronic ulcer of other part of left foot with fat layer exposed; E11.610 Type 2 diabetes mellitus with diabetic neuropathic arthropathy; E11.42 Type 2 diabetes mellitus with diabetic polyneuropathy; E11.69 Type 2 diabetes mellitus with other specified complication; M86.572 Other chronic hematogenous osteomyelitis, left ankle and foot; J43.9 Emphysema, unspecified; B95.62 Methicillin resistant Staphylococcus aureus infection as the cause of diseases classified elsewhere; I25.2 Old myocardial infarction; I10 Essential (primary) hypertension; K21.9 Gastro-esophageal reflux disease without esophagitis; I87.2 Venous insufficiency (chronic) (peripheral); F17.200 Nicotine dependence, unspecified, uncomplicated; F10.10 Alcohol abuse, uncomplicated; Z79.899 Other long term (current) drug therapy | CPT/HCPCS: 29581; A6021; A6154; A6441 ==

== ENCOUNTER 2019-02-03 09:50 | Day surgery (SDC) | payer MEDICAID ==
[2019-02-03] MEDS ORDERED: LIDOcaine 2% 5ml jelly ONE (11:20)
== END 2019-02-03 12:01 | disposition home or self-care (01) ==
LOC: WOUND CARE 09:50
PROVIDERS: ATTEND Surgery
DX: E11.621 Type 2 diabetes mellitus with foot ulcer (principal); L97.522 Non-pressure chronic ulcer of other part of left foot with fat layer exposed; E11.610 Type 2 diabetes mellitus with diabetic neuropathic arthropathy; E11.42 Type 2 diabetes mellitus with diabetic polyneuropathy; E11.69 Type 2 diabetes mellitus with other specified complication; M86.572 Other chronic hematogenous osteomyelitis, left ankle and foot; J43.9 Emphysema, unspecified; B95.62 Methicillin resistant Staphylococcus aureus infection as the cause of diseases classified elsewhere; I25.2 Old myocardial infarction; I10 Essential (primary) hypertension; K21.9 Gastro-esophageal reflux disease without esophagitis; I87.2 Venous insufficiency (chronic) (peripheral); F17.200 Nicotine dependence, unspecified, uncomplicated; F10.10 Alcohol abuse, uncomplicated; Z79.899 Other long term (current) drug therapy
CPT/HCPCS: 15275; A6209; A6222; Q4101; A4663; A6250; A6441

== ENCOUNTER 2019-02-10 10:00 | Outpatient (CLI) | payer MEDICAID | END 2019-02-10 12:30 | disposition home or self-care (01) | LOC: EDSTATUS 10:00 → WOUND CARE 10:00 | PROVIDERS: ATTEND Surgery | DX: E11.621 Type 2 diabetes mellitus with foot ulcer (principal); L97.522 Non-pressure chronic ulcer of other part of left foot with fat layer exposed; E11.610 Type 2 diabetes mellitus with diabetic neuropathic arthropathy; E11.42 Type 2 diabetes mellitus with diabetic polyneuropathy; E11.69 Type 2 diabetes mellitus with other specified complication; M86.572 Other chronic hematogenous osteomyelitis, left ankle and foot; J43.9 Emphysema, unspecified; B95.62 Methicillin resistant Staphylococcus aureus infection as the cause of diseases classified elsewhere; I25.2 Old myocardial infarction; I10 Essential (primary) hypertension; K21.9 Gastro-esophageal reflux disease without esophagitis; I87.2 Venous insufficiency (chronic) (peripheral); F17.200 Nicotine dependence, unspecified, uncomplicated; F10.10 Alcohol abuse, uncomplicated; Z79.899 Other long term (current) drug therapy | CPT/HCPCS: 29581; A4663; A6021; A6154; A6441 ==

== ENCOUNTER 2019-02-17 10:00 | Day surgery (SDC) | payer MEDICAID ==
[2019-02-17] MEDS ORDERED: LIDOcaine 2% 5ml jelly ONE (10:28)
== END 2019-02-17 11:43 | disposition home or self-care (01) ==
LOC: WOUND CARE 10:00
PROVIDERS: ATTEND Surgery
DX: E11.621 Type 2 diabetes mellitus with foot ulcer (principal); L97.522 Non-pressure chronic ulcer of other part of left foot with fat layer exposed; E11.610 Type 2 diabetes mellitus with diabetic neuropathic arthropathy; E11.42 Type 2 diabetes mellitus with diabetic polyneuropathy; E11.69 Type 2 diabetes mellitus with other specified complication; M86.572 Other chronic hematogenous osteomyelitis, left ankle and foot; J43.9 Emphysema, unspecified; B95.62 Methicillin resistant Staphylococcus aureus infection as the cause of diseases classified elsewhere; I25.2 Old myocardial infarction; I10 Essential (primary) hypertension; K21.9 Gastro-esophageal reflux disease without esophagitis; I87.2 Venous insufficiency (chronic) (peripheral); F17.200 Nicotine dependence, unspecified, uncomplicated; F10.10 Alcohol abuse, uncomplicated; Z79.899 Other long term (current) drug therapy
CPT/HCPCS: 15275; A6209; A6222; Q4101; 15276; A4663; A6250; A6446

== ENCOUNTER 2019-02-24 10:05 | Day surgery (SDC) | payer MEDICAID | END 2019-02-24 11:46 | disposition home or self-care (01) | LOC: WOUND CARE 10:05 | PROVIDERS: ATTEND Surgery | DX: E11.621 Type 2 diabetes mellitus with foot ulcer (principal); L97.522 Non-pressure chronic ulcer of other part of left foot with fat layer exposed; E11.610 Type 2 diabetes mellitus with diabetic neuropathic arthropathy; E11.42 Type 2 diabetes mellitus with diabetic polyneuropathy; E11.69 Type 2 diabetes mellitus with other specified complication; M86.572 Other chronic hematogenous osteomyelitis, left ankle and foot; J43.9 Emphysema, unspecified; B95.62 Methicillin resistant Staphylococcus aureus infection as the cause of diseases classified elsewhere; I25.2 Old myocardial infarction; I10 Essential (primary) hypertension; K21.9 Gastro-esophageal reflux disease without esophagitis; I87.2 Venous insufficiency (chronic) (peripheral); F17.200 Nicotine dependence, unspecified, uncomplicated; F10.10 Alcohol abuse, uncomplicated; Z79.899 Other long term (current) drug therapy | CPT/HCPCS: 29581; A6209; A4663; A6021; A6154; A6441 ==

== ENCOUNTER 2019-03-03 09:53 | Day surgery (SDC) | payer MEDICAID ==
[2019-03-03] MEDS ORDERED: LIDOcaine 2% 5ml jelly ONE (10:59)
== END 2019-03-03 12:01 | disposition home or self-care (01) ==
LOC: WOUND CARE 09:53
PROVIDERS: ATTEND Surgery
DX: E11.621 Type 2 diabetes mellitus with foot ulcer (principal); L97.522 Non-pressure chronic ulcer of other part of left foot with fat layer exposed; E11.610 Type 2 diabetes mellitus with diabetic neuropathic arthropathy; E11.42 Type 2 diabetes mellitus with diabetic polyneuropathy; E11.69 Type 2 diabetes mellitus with other specified complication; M86.572 Other chronic hematogenous osteomyelitis, left ankle and foot; J43.9 Emphysema, unspecified; B95.62 Methicillin resistant Staphylococcus aureus infection as the cause of diseases classified elsewhere; I25.2 Old myocardial infarction; I10 Essential (primary) hypertension; K21.9 Gastro-esophageal reflux disease without esophagitis; I87.2 Venous insufficiency (chronic) (peripheral); F17.200 Nicotine dependence, unspecified, uncomplicated; F10.10 Alcohol abuse, uncomplicated; Z79.899 Other long term (current) drug therapy
CPT/HCPCS: 11042; A6209; A4663; A6021; A6446

== ENCOUNTER 2019-03-10 10:05 | Day surgery (SDC) | payer MEDICAID ==
[2019-03-10] MEDS ORDERED: LIDOcaine 2% 5ml jelly ONE (10:41)
== END 2019-03-10 11:24 | disposition home or self-care (01) ==
LOC: WOUND CARE 10:05
PROVIDERS: ATTEND Surgery
DX: E11.621 Type 2 diabetes mellitus with foot ulcer (principal); L97.522 Non-pressure chronic ulcer of other part of left foot with fat layer exposed; E11.610 Type 2 diabetes mellitus with diabetic neuropathic arthropathy; E11.42 Type 2 diabetes mellitus with diabetic polyneuropathy; E11.69 Type 2 diabetes mellitus with other specified complication; M86.572 Other chronic hematogenous osteomyelitis, left ankle and foot; J43.9 Emphysema, unspecified; B95.62 Methicillin resistant Staphylococcus aureus infection as the cause of diseases classified elsewhere; I25.2 Old myocardial infarction; I10 Essential (primary) hypertension; K21.9 Gastro-esophageal reflux disease without esophagitis; I87.2 Venous insufficiency (chronic) (peripheral); F17.200 Nicotine dependence, unspecified, uncomplicated; F10.10 Alcohol abuse, uncomplicated; Z79.899 Other long term (current) drug therapy
CPT/HCPCS: 15275; A6209; A6222; Q4186; A4663; A6250; A6441

== ENCOUNTER 2019-03-17 09:30 | Day surgery (SDC) | payer MEDICAID | END 2019-03-17 11:20 | disposition home or self-care (01) | LOC: WOUND CARE 09:30 | PROVIDERS: ATTEND Surgery | DX: E11.621 Type 2 diabetes mellitus with foot ulcer (principal); L97.522 Non-pressure chronic ulcer of other part of left foot with fat layer exposed; E11.610 Type 2 diabetes mellitus with diabetic neuropathic arthropathy; E11.42 Type 2 diabetes mellitus with diabetic polyneuropathy; E11.69 Type 2 diabetes mellitus with other specified complication; M86.572 Other chronic hematogenous osteomyelitis, left ankle and foot; J43.9 Emphysema, unspecified; B95.62 Methicillin resistant Staphylococcus aureus infection as the cause of diseases classified elsewhere; I25.2 Old myocardial infarction; I10 Essential (primary) hypertension; K21.9 Gastro-esophageal reflux disease without esophagitis; I87.2 Venous insufficiency (chronic) (peripheral); F17.200 Nicotine dependence, unspecified, uncomplicated; F10.10 Alcohol abuse, uncomplicated; Z79.899 Other long term (current) drug therapy | CPT/HCPCS: 29581; A4663; A6021; A6154; A6441 ==

== ENCOUNTER 2019-03-24 10:00 | Day surgery (SDC) | payer MEDICAID ==
[2019-03-24] MEDS ORDERED: LIDOcaine 2% 5ml jelly ONE (11:03)
== END 2019-03-24 11:55 | disposition home or self-care (01) ==
LOC: WOUND CARE 10:00
PROVIDERS: ATTEND Surgery
DX: E11.621 Type 2 diabetes mellitus with foot ulcer (principal); L97.522 Non-pressure chronic ulcer of other part of left foot with fat layer exposed; E11.610 Type 2 diabetes mellitus with diabetic neuropathic arthropathy; E11.42 Type 2 diabetes mellitus with diabetic polyneuropathy; E11.69 Type 2 diabetes mellitus with other specified complication; M86.572 Other chronic hematogenous osteomyelitis, left ankle and foot; J43.9 Emphysema, unspecified; B95.62 Methicillin resistant Staphylococcus aureus infection as the cause of diseases classified elsewhere; I25.2 Old myocardial infarction; I10 Essential (primary) hypertension; K21.9 Gastro-esophageal reflux disease without esophagitis; I87.2 Venous insufficiency (chronic) (peripheral); F17.200 Nicotine dependence, unspecified, uncomplicated; F10.10 Alcohol abuse, uncomplicated; Z79.899 Other long term (current) drug therapy
CPT/HCPCS: 97597; A6209; A4663; A6021; A6441

== ENCOUNTER 2019-03-31 09:45 | Day surgery (SDC) | payer MEDICAID ==
[2019-03-31] MEDS ORDERED: LIDOcaine/PRILOcaine 5gm cream TP ONE (10:55)
== END 2019-03-31 12:17 | disposition home or self-care (01) ==
LOC: WOUND CARE 09:45
PROVIDERS: ATTEND Surgery
DX: E11.621 Type 2 diabetes mellitus with foot ulcer (principal); L97.522 Non-pressure chronic ulcer of other part of left foot with fat layer exposed; E11.610 Type 2 diabetes mellitus with diabetic neuropathic arthropathy; E11.42 Type 2 diabetes mellitus with diabetic polyneuropathy; E11.69 Type 2 diabetes mellitus with other specified complication; M86.572 Other chronic hematogenous osteomyelitis, left ankle and foot; J43.9 Emphysema, unspecified; B95.62 Methicillin resistant Staphylococcus aureus infection as the cause of diseases classified elsewhere; I25.2 Old myocardial infarction; K21.9 Gastro-esophageal reflux disease without esophagitis; J45.909 Unspecified asthma, uncomplicated; I11.0 Hypertensive heart disease with heart failure; I50.9 Heart failure, unspecified; M19.90 Unspecified osteoarthritis, unspecified site; I87.2 Venous insufficiency (chronic) (peripheral); E78.5 Hyperlipidemia, unspecified; F17.200 Nicotine dependence, unspecified, uncomplicated; F10.10 Alcohol abuse, uncomplicated; Z79.899 Other long term (current) drug therapy
CPT/HCPCS: 15275; A6209; A6222; Q4186; A4663; A6250; A6441

== ENCOUNTER 2019-04-07 10:06 | Day surgery (SDC) | payer MEDICAID | END 2019-04-07 11:36 | disposition home or self-care (01) | LOC: WOUND CARE 10:06 | PROVIDERS: ATTEND Surgery | DX: E11.621 Type 2 diabetes mellitus with foot ulcer (principal); L97.522 Non-pressure chronic ulcer of other part of left foot with fat layer exposed; E11.610 Type 2 diabetes mellitus with diabetic neuropathic arthropathy; E11.42 Type 2 diabetes mellitus with diabetic polyneuropathy; E11.69 Type 2 diabetes mellitus with other specified complication; M86.572 Other chronic hematogenous osteomyelitis, left ankle and foot; J43.9 Emphysema, unspecified; B95.62 Methicillin resistant Staphylococcus aureus infection as the cause of diseases classified elsewhere; I25.2 Old myocardial infarction; K21.9 Gastro-esophageal reflux disease without esophagitis; J45.909 Unspecified asthma, uncomplicated; I11.0 Hypertensive heart disease with heart failure; I50.9 Heart failure, unspecified; M19.90 Unspecified osteoarthritis, unspecified site; I87.2 Venous insufficiency (chronic) (peripheral); E78.5 Hyperlipidemia, unspecified; F17.200 Nicotine dependence, unspecified, uncomplicated; F10.10 Alcohol abuse, uncomplicated; Z79.899 Other long term (current) drug therapy | CPT/HCPCS: 29581; A4663; A6021; A6154; A6441 ==

== ENCOUNTER 2019-04-14 09:45 | Day surgery (SDC) | payer MEDICAID ==
[2019-04-14] MEDS ORDERED: LIDOcaine 2% 5ml jelly ONE (09:49)
== END 2019-04-14 11:15 | disposition home or self-care (01) ==
LOC: WOUND CARE 09:45
PROVIDERS: ATTEND Surgery
DX: E11.621 Type 2 diabetes mellitus with foot ulcer (principal); L97.522 Non-pressure chronic ulcer of other part of left foot with fat layer exposed; E11.610 Type 2 diabetes mellitus with diabetic neuropathic arthropathy; E11.42 Type 2 diabetes mellitus with diabetic polyneuropathy; E11.69 Type 2 diabetes mellitus with other specified complication; M86.572 Other chronic hematogenous osteomyelitis, left ankle and foot; J43.9 Emphysema, unspecified; B95.62 Methicillin resistant Staphylococcus aureus infection as the cause of diseases classified elsewhere; I25.2 Old myocardial infarction; K21.9 Gastro-esophageal reflux disease without esophagitis; J45.909 Unspecified asthma, uncomplicated; I11.0 Hypertensive heart disease with heart failure; I50.9 Heart failure, unspecified; M19.90 Unspecified osteoarthritis, unspecified site; I87.2 Venous insufficiency (chronic) (peripheral); E78.5 Hyperlipidemia, unspecified; F17.200 Nicotine dependence, unspecified, uncomplicated; F10.10 Alcohol abuse, uncomplicated; Z79.899 Other long term (current) drug therapy
CPT/HCPCS: 15275; A6209; Q4186; A4663; A6250; A6441

== ENCOUNTER 2019-04-20 10:05 | Outpatient (CLI) | payer MEDICAID ==
[2019-04-20] MEDS ORDERED: LIDOcaine 2% 5ml jelly ONE (10:43)
== END 2019-04-20 11:25 | disposition home or self-care (01) ==
LOC: WOUND CARE 10:05
PROVIDERS: ATTEND Surgery
DX: E11.621 Type 2 diabetes mellitus with foot ulcer (principal); L97.522 Non-pressure chronic ulcer of other part of left foot with fat layer exposed; E11.610 Type 2 diabetes mellitus with diabetic neuropathic arthropathy; E11.42 Type 2 diabetes mellitus with diabetic polyneuropathy; E11.69 Type 2 diabetes mellitus with other specified complication; M86.572 Other chronic hematogenous osteomyelitis, left ankle and foot; J43.9 Emphysema, unspecified; B95.62 Methicillin resistant Staphylococcus aureus infection as the cause of diseases classified elsewhere; I25.2 Old myocardial infarction; K21.9 Gastro-esophageal reflux disease without esophagitis; J45.909 Unspecified asthma, uncomplicated; I11.0 Hypertensive heart disease with heart failure; I50.9 Heart failure, unspecified; M19.90 Unspecified osteoarthritis, unspecified site; I87.2 Venous insufficiency (chronic) (peripheral); E78.5 Hyperlipidemia, unspecified; F17.200 Nicotine dependence, unspecified, uncomplicated; F10.10 Alcohol abuse, uncomplicated; Z79.899 Other long term (current) drug therapy
CPT/HCPCS: 29581; A4663; A6021; A6154; A6441; G0463

== ENCOUNTER 2019-04-27 09:50 | Day surgery (SDC) | payer MEDICAID ==
[2019-04-27] MEDS ORDERED: LIDOcaine 2% 5ml jelly ONE (10:30)
== END 2019-04-27 12:00 | disposition home or self-care (01) ==
LOC: WOUND CARE 09:50
PROVIDERS: ATTEND Nurse Practitioner Family
DX: E11.621 Type 2 diabetes mellitus with foot ulcer (principal); L97.522 Non-pressure chronic ulcer of other part of left foot with fat layer exposed; E11.610 Type 2 diabetes mellitus with diabetic neuropathic arthropathy; E11.42 Type 2 diabetes mellitus with diabetic polyneuropathy; E11.69 Type 2 diabetes mellitus with other specified complication; M86.572 Other chronic hematogenous osteomyelitis, left ankle and foot; J43.9 Emphysema, unspecified; B95.62 Methicillin resistant Staphylococcus aureus infection as the cause of diseases classified elsewhere; I25.2 Old myocardial infarction; K21.9 Gastro-esophageal reflux disease without esophagitis; J45.909 Unspecified asthma, uncomplicated; I11.0 Hypertensive heart disease with heart failure; I50.9 Heart failure, unspecified; M19.90 Unspecified osteoarthritis, unspecified site; I87.2 Venous insufficiency (chronic) (peripheral); E78.5 Hyperlipidemia, unspecified; F41.9 Anxiety disorder, unspecified; F32.9 Major depressive disorder, single episode, unspecified; F17.200 Nicotine dependence, unspecified, uncomplicated; F10.10 Alcohol abuse, uncomplicated; Z79.899 Other long term (current) drug therapy
CPT/HCPCS: 97597; A4663; A6021; A6154; A6441

== ENCOUNTER 2019-05-05 09:48 | Day surgery (SDC) | payer MEDICAID ==
[2019-05-05] MEDS ORDERED: LIDOcaine 2% 5ml jelly ONE (10:14)
== END 2019-05-05 11:45 | disposition home or self-care (01) ==
LOC: WOUND CARE 09:48
PROVIDERS: ATTEND Surgery
DX: E11.621 Type 2 diabetes mellitus with foot ulcer (principal); L97.522 Non-pressure chronic ulcer of other part of left foot with fat layer exposed; E11.610 Type 2 diabetes mellitus with diabetic neuropathic arthropathy; E11.42 Type 2 diabetes mellitus with diabetic polyneuropathy; E11.69 Type 2 diabetes mellitus with other specified complication; M86.572 Other chronic hematogenous osteomyelitis, left ankle and foot; J43.9 Emphysema, unspecified; B95.62 Methicillin resistant Staphylococcus aureus infection as the cause of diseases classified elsewhere; I25.2 Old myocardial infarction; K21.9 Gastro-esophageal reflux disease without esophagitis; J45.909 Unspecified asthma, uncomplicated; I11.0 Hypertensive heart disease with heart failure; I50.9 Heart failure, unspecified; M19.90 Unspecified osteoarthritis, unspecified site; I87.2 Venous insufficiency (chronic) (peripheral); E78.5 Hyperlipidemia, unspecified; F41.9 Anxiety disorder, unspecified; F32.9 Major depressive disorder, single episode, unspecified; F17.200 Nicotine dependence, unspecified, uncomplicated; F10.10 Alcohol abuse, uncomplicated; Z79.899 Other long term (current) drug therapy
CPT/HCPCS: 15275; A6209; A6222; Q4186; A4663; A6250; A6441

== ENCOUNTER 2019-05-12 09:55 | Day surgery (SDC) | payer MEDICAID ==
[2019-05-12] MEDS ORDERED: LIDOcaine 2% 5ml jelly ONE (10:30)
== END 2019-05-12 11:45 | disposition home or self-care (01) ==
LOC: WOUND CARE 09:55
PROVIDERS: ATTEND Surgery
DX: E11.621 Type 2 diabetes mellitus with foot ulcer (principal); L97.522 Non-pressure chronic ulcer of other part of left foot with fat layer exposed; E11.610 Type 2 diabetes mellitus with diabetic neuropathic arthropathy; E11.42 Type 2 diabetes mellitus with diabetic polyneuropathy; E11.69 Type 2 diabetes mellitus with other specified complication; M86.572 Other chronic hematogenous osteomyelitis, left ankle and foot; J43.9 Emphysema, unspecified; B95.62 Methicillin resistant Staphylococcus aureus infection as the cause of diseases classified elsewhere; I25.2 Old myocardial infarction; K21.9 Gastro-esophageal reflux disease without esophagitis; J45.909 Unspecified asthma, uncomplicated; I11.0 Hypertensive heart disease with heart failure; I50.9 Heart failure, unspecified; M19.90 Unspecified osteoarthritis, unspecified site; I87.2 Venous insufficiency (chronic) (peripheral); E78.5 Hyperlipidemia, unspecified; F17.200 Nicotine dependence, unspecified, uncomplicated; F10.10 Alcohol abuse, uncomplicated; Z79.899 Other long term (current) drug therapy
CPT/HCPCS: 97597; A4663; A6021; A6446

== ENCOUNTER 2019-05-19 09:50 | Day surgery (SDC) | payer MEDICAID ==
[2019-05-19] MEDS ORDERED: LIDOcaine 2% 5ml jelly ONE (10:41)
== END 2019-05-19 11:54 | disposition home or self-care (01) ==
LOC: WOUND CARE 09:50
PROVIDERS: ATTEND Surgery
DX: E11.621 Type 2 diabetes mellitus with foot ulcer (principal); L97.522 Non-pressure chronic ulcer of other part of left foot with fat layer exposed; E11.610 Type 2 diabetes mellitus with diabetic neuropathic arthropathy; E11.42 Type 2 diabetes mellitus with diabetic polyneuropathy; E11.69 Type 2 diabetes mellitus with other specified complication; M86.572 Other chronic hematogenous osteomyelitis, left ankle and foot; J43.9 Emphysema, unspecified; B95.62 Methicillin resistant Staphylococcus aureus infection as the cause of diseases classified elsewhere; I25.2 Old myocardial infarction; K21.9 Gastro-esophageal reflux disease without esophagitis; J45.909 Unspecified asthma, uncomplicated; I11.0 Hypertensive heart disease with heart failure; I50.9 Heart failure, unspecified; M19.90 Unspecified osteoarthritis, unspecified site; I87.2 Venous insufficiency (chronic) (peripheral); E78.5 Hyperlipidemia, unspecified; F17.200 Nicotine dependence, unspecified, uncomplicated; F10.10 Alcohol abuse, uncomplicated; Z79.899 Other long term (current) drug therapy
CPT/HCPCS: 15275; A6209; A6222; Q4186; A4663; A6250; A6441

== ENCOUNTER 2019-05-26 09:30 | Day surgery (SDC) | payer MEDICAID ==
[2019-05-26] MEDS ORDERED: LIDOcaine 2% 5ml jelly ONE (10:16)
== END 2019-05-26 11:33 | disposition home or self-care (01) ==
LOC: WOUND CARE 09:30
PROVIDERS: ATTEND Surgery
DX: E11.621 Type 2 diabetes mellitus with foot ulcer (principal); L97.522 Non-pressure chronic ulcer of other part of left foot with fat layer exposed; E11.610 Type 2 diabetes mellitus with diabetic neuropathic arthropathy; E11.42 Type 2 diabetes mellitus with diabetic polyneuropathy; E11.69 Type 2 diabetes mellitus with other specified complication; M86.572 Other chronic hematogenous osteomyelitis, left ankle and foot; J43.9 Emphysema, unspecified; B95.62 Methicillin resistant Staphylococcus aureus infection as the cause of diseases classified elsewhere; I25.2 Old myocardial infarction; K21.9 Gastro-esophageal reflux disease without esophagitis; J45.909 Unspecified asthma, uncomplicated; I11.0 Hypertensive heart disease with heart failure; I50.9 Heart failure, unspecified; M19.90 Unspecified osteoarthritis, unspecified site; I87.2 Venous insufficiency (chronic) (peripheral); E78.5 Hyperlipidemia, unspecified; F17.200 Nicotine dependence, unspecified, uncomplicated; F10.10 Alcohol abuse, uncomplicated; Z79.899 Other long term (current) drug therapy
CPT/HCPCS: 97597; A4663; A6021; A6154; A6196; A6212; A6441

== ENCOUNTER 2019-06-02 09:30 | Day surgery (SDC) | payer MEDICAID ==
[2019-06-02] MEDS ORDERED: LIDOcaine 2% 5ml jelly ONE (09:54)
== END 2019-06-02 11:10 | disposition home or self-care (01) ==
LOC: WOUND CARE 09:30
PROVIDERS: ATTEND Surgery
DX: E11.621 Type 2 diabetes mellitus with foot ulcer (principal); L97.522 Non-pressure chronic ulcer of other part of left foot with fat layer exposed; E11.622 Type 2 diabetes mellitus with other skin ulcer; L97.221 Non-pressure chronic ulcer of left calf limited to breakdown of skin; E11.610 Type 2 diabetes mellitus with diabetic neuropathic arthropathy; E11.42 Type 2 diabetes mellitus with diabetic polyneuropathy; E11.69 Type 2 diabetes mellitus with other specified complication; M86.572 Other chronic hematogenous osteomyelitis, left ankle and foot; J43.9 Emphysema, unspecified; B95.62 Methicillin resistant Staphylococcus aureus infection as the cause of diseases classified elsewhere; I25.2 Old myocardial infarction; K21.9 Gastro-esophageal reflux disease without esophagitis; J45.909 Unspecified asthma, uncomplicated; I11.0 Hypertensive heart disease with heart failure; I50.9 Heart failure, unspecified; M19.90 Unspecified osteoarthritis, unspecified site; I87.2 Venous insufficiency (chronic) (peripheral); E78.5 Hyperlipidemia, unspecified; F17.200 Nicotine dependence, unspecified, uncomplicated; F10.10 Alcohol abuse, uncomplicated; Z79.899 Other long term (current) drug therapy
CPT/HCPCS: 15275; Q4187

== ENCOUNTER 2019-06-09 10:00 | Outpatient (CLI) | payer MEDICAID ==
[2019-06-09] MEDS ORDERED: LIDOcaine 2% 5ml jelly ONE (10:27)
== END 2019-06-09 11:20 | disposition home or self-care (01) ==
LOC: WOUND CARE 10:00 → EDSTATUS 10:00 → WOUND CARE 11:20
PROVIDERS: ATTEND Surgery
DX: E11.621 Type 2 diabetes mellitus with foot ulcer (principal); L97.522 Non-pressure chronic ulcer of other part of left foot with fat layer exposed; E11.622 Type 2 diabetes mellitus with other skin ulcer; L97.221 Non-pressure chronic ulcer of left calf limited to breakdown of skin; E11.610 Type 2 diabetes mellitus with diabetic neuropathic arthropathy; E11.42 Type 2 diabetes mellitus with diabetic polyneuropathy; E11.69 Type 2 diabetes mellitus with other specified complication; M86.572 Other chronic hematogenous osteomyelitis, left ankle and foot; J43.9 Emphysema, unspecified; B95.62 Methicillin resistant Staphylococcus aureus infection as the cause of diseases classified elsewhere; I25.2 Old myocardial infarction; K21.9 Gastro-esophageal reflux disease without esophagitis; J45.909 Unspecified asthma, uncomplicated; I11.0 Hypertensive heart disease with heart failure; I50.9 Heart failure, unspecified; M19.90 Unspecified osteoarthritis, unspecified site; I87.2 Venous insufficiency (chronic) (peripheral); E78.5 Hyperlipidemia, unspecified; F17.200 Nicotine dependence, unspecified, uncomplicated; F10.10 Alcohol abuse, uncomplicated; Z79.899 Other long term (current) drug therapy
CPT/HCPCS: G0463

== ENCOUNTER 2019-06-16 09:56 | Day surgery (SDC) | payer MEDICAID ==
[2019-06-16] MEDS ORDERED: LIDOcaine 2% 5ml jelly ONE (10:39)
== END 2019-06-16 11:33 | disposition home or self-care (01) ==
LOC: WOUND CARE 09:56
PROVIDERS: ATTEND Surgery
DX: E11.621 Type 2 diabetes mellitus with foot ulcer (principal); L97.522 Non-pressure chronic ulcer of other part of left foot with fat layer exposed; E11.622 Type 2 diabetes mellitus with other skin ulcer; L97.221 Non-pressure chronic ulcer of left calf limited to breakdown of skin; E11.610 Type 2 diabetes mellitus with diabetic neuropathic arthropathy; E11.42 Type 2 diabetes mellitus with diabetic polyneuropathy; E11.69 Type 2 diabetes mellitus with other specified complication; M86.572 Other chronic hematogenous osteomyelitis, left ankle and foot; J43.9 Emphysema, unspecified; B95.62 Methicillin resistant Staphylococcus aureus infection as the cause of diseases classified elsewhere; I25.2 Old myocardial infarction; K21.9 Gastro-esophageal reflux disease without esophagitis; J45.909 Unspecified asthma, uncomplicated; I11.0 Hypertensive heart disease with heart failure; I50.9 Heart failure, unspecified; M19.90 Unspecified osteoarthritis, unspecified site; I87.2 Venous insufficiency (chronic) (peripheral); E78.5 Hyperlipidemia, unspecified; F17.200 Nicotine dependence, unspecified, uncomplicated; F10.10 Alcohol abuse, uncomplicated; Z79.899 Other long term (current) drug therapy
CPT/HCPCS: 15275; 97597; Q4186

== ENCOUNTER 2019-06-23 09:25 | Day surgery (SDC) | payer MEDICAID ==
[2019-06-23] MEDS ORDERED: LIDOcaine 2% 5ml jelly ONE (09:46)
[2019-06-23] MEDS ORDERED: nystatin/triamcinolone cream 15gm TP ONE (10:52)
== END 2019-06-23 11:42 | disposition home or self-care (01) ==
LOC: WOUND CARE 09:25
PROVIDERS: ATTEND Surgery
DX: E11.621 Type 2 diabetes mellitus with foot ulcer (principal); L97.522 Non-pressure chronic ulcer of other part of left foot with fat layer exposed; E11.622 Type 2 diabetes mellitus with other skin ulcer; L97.221 Non-pressure chronic ulcer of left calf limited to breakdown of skin; E11.610 Type 2 diabetes mellitus with diabetic neuropathic arthropathy; E11.42 Type 2 diabetes mellitus with diabetic polyneuropathy; E11.69 Type 2 diabetes mellitus with other specified complication; M86.572 Other chronic hematogenous osteomyelitis, left ankle and foot; J43.9 Emphysema, unspecified; B95.62 Methicillin resistant Staphylococcus aureus infection as the cause of diseases classified elsewhere; I25.2 Old myocardial infarction; K21.9 Gastro-esophageal reflux disease without esophagitis; J45.909 Unspecified asthma, uncomplicated; I11.0 Hypertensive heart disease with heart failure; I50.9 Heart failure, unspecified; M19.90 Unspecified osteoarthritis, unspecified site; I87.2 Venous insufficiency (chronic) (peripheral); E78.5 Hyperlipidemia, unspecified; Q82.0 Hereditary lymphedema; F10.10 Alcohol abuse, uncomplicated; F17.200 Nicotine dependence, unspecified, uncomplicated; Z79.899 Other long term (current) drug therapy
CPT/HCPCS: 97597; J7999

== ENCOUNTER 2019-06-30 09:35 | Day surgery (SDC) | payer MEDICAID ==
[2019-06-30] MEDS ORDERED: LIDOcaine 2% 5ml jelly ONE (09:54)
[2019-06-30] MEDS ORDERED: nystatin/triamcinolone cream 15gm TP ONE (10:51)
== END 2019-06-30 11:10 | disposition home or self-care (01) ==
LOC: WOUND CARE 09:35
PROVIDERS: ATTEND Surgery
DX: E11.621 Type 2 diabetes mellitus with foot ulcer (principal); L97.522 Non-pressure chronic ulcer of other part of left foot with fat layer exposed; E11.622 Type 2 diabetes mellitus with other skin ulcer; L97.221 Non-pressure chronic ulcer of left calf limited to breakdown of skin; E11.610 Type 2 diabetes mellitus with diabetic neuropathic arthropathy; E11.42 Type 2 diabetes mellitus with diabetic polyneuropathy; E11.69 Type 2 diabetes mellitus with other specified complication; M86.572 Other chronic hematogenous osteomyelitis, left ankle and foot; J43.9 Emphysema, unspecified; B95.62 Methicillin resistant Staphylococcus aureus infection as the cause of diseases classified elsewhere; I25.2 Old myocardial infarction; K21.9 Gastro-esophageal reflux disease without esophagitis; J45.909 Unspecified asthma, uncomplicated; I11.0 Hypertensive heart disease with heart failure; I50.9 Heart failure, unspecified; M19.90 Unspecified osteoarthritis, unspecified site; I87.2 Venous insufficiency (chronic) (peripheral); E78.5 Hyperlipidemia, unspecified; Q82.0 Hereditary lymphedema; F10.10 Alcohol abuse, uncomplicated; F17.200 Nicotine dependence, unspecified, uncomplicated; Z79.899 Other long term (current) drug therapy
CPT/HCPCS: 97597; J7999; A4663; A6021; A6154; A6441

== ENCOUNTER 2019-07-07 09:20 | Day surgery (SDC) | payer MEDICAID ==
[2019-07-07] MEDS ORDERED: LIDOcaine 2% 5ml jelly ONE ×3 (09:35→10:10)
[2019-07-07] MEDS ORDERED: nystatin/triamcinolone cream 15gm TP ONE (10:30)
== END 2019-07-07 10:47 | disposition home or self-care (01) ==
LOC: WOUND CARE 09:20
PROVIDERS: ATTEND Surgery
DX: E11.621 Type 2 diabetes mellitus with foot ulcer (principal); L97.522 Non-pressure chronic ulcer of other part of left foot with fat layer exposed; E11.622 Type 2 diabetes mellitus with other skin ulcer; L97.221 Non-pressure chronic ulcer of left calf limited to breakdown of skin; E11.610 Type 2 diabetes mellitus with diabetic neuropathic arthropathy; E11.42 Type 2 diabetes mellitus with diabetic polyneuropathy; E11.69 Type 2 diabetes mellitus with other specified complication; M86.572 Other chronic hematogenous osteomyelitis, left ankle and foot; J43.9 Emphysema, unspecified; B95.62 Methicillin resistant Staphylococcus aureus infection as the cause of diseases classified elsewhere; I25.2 Old myocardial infarction; K21.9 Gastro-esophageal reflux disease without esophagitis; J45.909 Unspecified asthma, uncomplicated; I11.0 Hypertensive heart disease with heart failure; I50.9 Heart failure, unspecified; M19.90 Unspecified osteoarthritis, unspecified site; I87.2 Venous insufficiency (chronic) (peripheral); E78.5 Hyperlipidemia, unspecified; Q82.0 Hereditary lymphedema; F10.10 Alcohol abuse, uncomplicated; F17.200 Nicotine dependence, unspecified, uncomplicated; Z79.899 Other long term (current) drug therapy
CPT/HCPCS: 15275; J7999; Q4186

== ENCOUNTER 2019-07-14 10:05 | Day surgery (SDC) | payer MEDICAID ==
[2019-07-14] MEDS ORDERED: LIDOcaine 2% 5ml jelly ONE (10:13)
[2019-07-14] MEDS ORDERED: nystatin/triamcinolone cream 15gm TP ONE (11:10)
== END 2019-07-14 11:24 | disposition home or self-care (01) ==
LOC: WOUND CARE 10:05
PROVIDERS: ATTEND Surgery
DX: E11.621 Type 2 diabetes mellitus with foot ulcer (principal); L97.522 Non-pressure chronic ulcer of other part of left foot with fat layer exposed; E11.622 Type 2 diabetes mellitus with other skin ulcer; L97.221 Non-pressure chronic ulcer of left calf limited to breakdown of skin; E11.610 Type 2 diabetes mellitus with diabetic neuropathic arthropathy; E11.42 Type 2 diabetes mellitus with diabetic polyneuropathy; E11.69 Type 2 diabetes mellitus with other specified complication; M86.572 Other chronic hematogenous osteomyelitis, left ankle and foot; J43.9 Emphysema, unspecified; B95.62 Methicillin resistant Staphylococcus aureus infection as the cause of diseases classified elsewhere; I25.2 Old myocardial infarction; K21.9 Gastro-esophageal reflux disease without esophagitis; J45.909 Unspecified asthma, uncomplicated; I11.0 Hypertensive heart disease with heart failure; I50.9 Heart failure, unspecified; M19.90 Unspecified osteoarthritis, unspecified site; I87.2 Venous insufficiency (chronic) (peripheral); E78.5 Hyperlipidemia, unspecified; Q82.0 Hereditary lymphedema; F10.10 Alcohol abuse, uncomplicated; F17.200 Nicotine dependence, unspecified, uncomplicated; Z79.899 Other long term (current) drug therapy
CPT/HCPCS: 97597; J7999

== ENCOUNTER 2019-07-19 09:50 | Day surgery (SDC) | payer MEDICAID ==
[2019-07-19] MEDS ORDERED: LIDOcaine 2% 5ml jelly ONE (11:10)
[2019-07-19] MEDS ORDERED: nystatin/triamcinolone cream 15gm TP ONE (12:05)
== END 2019-07-19 12:18 | disposition home or self-care (01) ==
LOC: WOUND CARE 09:50
PROVIDERS: ATTEND Surgery
DX: E11.621 Type 2 diabetes mellitus with foot ulcer (principal); L97.522 Non-pressure chronic ulcer of other part of left foot with fat layer exposed; E11.622 Type 2 diabetes mellitus with other skin ulcer; L97.221 Non-pressure chronic ulcer of left calf limited to breakdown of skin; E11.610 Type 2 diabetes mellitus with diabetic neuropathic arthropathy; E11.42 Type 2 diabetes mellitus with diabetic polyneuropathy; E11.69 Type 2 diabetes mellitus with other specified complication; M86.572 Other chronic hematogenous osteomyelitis, left ankle and foot; J43.9 Emphysema, unspecified; B95.62 Methicillin resistant Staphylococcus aureus infection as the cause of diseases classified elsewhere; I25.2 Old myocardial infarction; K21.9 Gastro-esophageal reflux disease without esophagitis; J45.909 Unspecified asthma, uncomplicated; I11.0 Hypertensive heart disease with heart failure; I50.9 Heart failure, unspecified; M19.90 Unspecified osteoarthritis, unspecified site; I87.2 Venous insufficiency (chronic) (peripheral); E78.5 Hyperlipidemia, unspecified; Q82.0 Hereditary lymphedema; F10.10 Alcohol abuse, uncomplicated; F17.200 Nicotine dependence, unspecified, uncomplicated; Z79.899 Other long term (current) drug therapy
CPT/HCPCS: 15275; 97597; J7999; Q4186

== ENCOUNTER 2019-07-22 09:55 | Outpatient (CLI) | payer MEDICAID ==
[2019-07-22] MEDS ORDERED: LIDOcaine 2% 5ml jelly ONE (10:06)
[2019-07-22] MEDS ORDERED: nystatin/triamcinolone cream 15gm TP ONE (10:37)
== END 2019-07-22 10:53 | disposition home or self-care (01) ==
LOC: WOUND CARE 09:55 → EDSTATUS 10:00 → WOUND CARE 10:53
PROVIDERS: ATTEND Surgery
DX: E11.621 Type 2 diabetes mellitus with foot ulcer (principal); L97.522 Non-pressure chronic ulcer of other part of left foot with fat layer exposed; E11.622 Type 2 diabetes mellitus with other skin ulcer; L97.221 Non-pressure chronic ulcer of left calf limited to breakdown of skin; E11.610 Type 2 diabetes mellitus with diabetic neuropathic arthropathy; E11.42 Type 2 diabetes mellitus with diabetic polyneuropathy; E11.69 Type 2 diabetes mellitus with other specified complication; M86.572 Other chronic hematogenous osteomyelitis, left ankle and foot; J43.9 Emphysema, unspecified; B95.62 Methicillin resistant Staphylococcus aureus infection as the cause of diseases classified elsewhere; I25.2 Old myocardial infarction; K21.9 Gastro-esophageal reflux disease without esophagitis; J45.909 Unspecified asthma, uncomplicated; I11.0 Hypertensive heart disease with heart failure; I50.9 Heart failure, unspecified; M19.90 Unspecified osteoarthritis, unspecified site; I87.2 Venous insufficiency (chronic) (peripheral); E78.5 Hyperlipidemia, unspecified; Q82.0 Hereditary lymphedema; F10.10 Alcohol abuse, uncomplicated; F17.200 Nicotine dependence, unspecified, uncomplicated; Z79.899 Other long term (current) drug therapy
CPT/HCPCS: 29581; J7999

== ENCOUNTER 2019-07-29 10:20 | Day surgery (SDC) | payer MEDICAID ==
[2019-07-29] MEDS ORDERED: LIDOcaine 2% 5ml jelly ONE (10:30)
[2019-07-29] MEDS ORDERED: nystatin/triamcinolone cream 15gm TP ONE (11:06)
== END 2019-07-29 11:27 | disposition home or self-care (01) ==
LOC: WOUND CARE 10:20
PROVIDERS: ATTEND Nurse Practitioner
DX: E11.621 Type 2 diabetes mellitus with foot ulcer (principal); L97.522 Non-pressure chronic ulcer of other part of left foot with fat layer exposed; E11.622 Type 2 diabetes mellitus with other skin ulcer; L97.221 Non-pressure chronic ulcer of left calf limited to breakdown of skin; E11.610 Type 2 diabetes mellitus with diabetic neuropathic arthropathy; E11.42 Type 2 diabetes mellitus with diabetic polyneuropathy; E11.69 Type 2 diabetes mellitus with other specified complication; M86.572 Other chronic hematogenous osteomyelitis, left ankle and foot; J43.9 Emphysema, unspecified; B95.62 Methicillin resistant Staphylococcus aureus infection as the cause of diseases classified elsewhere; I25.2 Old myocardial infarction; K21.9 Gastro-esophageal reflux disease without esophagitis; J45.909 Unspecified asthma, uncomplicated; I11.0 Hypertensive heart disease with heart failure; I50.9 Heart failure, unspecified; M19.90 Unspecified osteoarthritis, unspecified site; I87.2 Venous insufficiency (chronic) (peripheral); E78.5 Hyperlipidemia, unspecified; Q82.0 Hereditary lymphedema; F10.10 Alcohol abuse, uncomplicated; F17.200 Nicotine dependence, unspecified, uncomplicated; Z79.899 Other long term (current) drug therapy
CPT/HCPCS: 11042; 97597; J7999

== ENCOUNTER 2019-08-04 10:03 | Outpatient (CLI) | payer MEDICAID ==
[2019-08-04] MEDS ORDERED: LIDOcaine 2% 5ml jelly ONE (10:06)
== END 2019-08-04 11:50 | disposition home or self-care (01) ==
LOC: WOUND CARE 10:03
PROVIDERS: ATTEND Nurse Practitioner
DX: E11.621 Type 2 diabetes mellitus with foot ulcer (principal); L97.522 Non-pressure chronic ulcer of other part of left foot with fat layer exposed; E11.622 Type 2 diabetes mellitus with other skin ulcer; L97.221 Non-pressure chronic ulcer of left calf limited to breakdown of skin; E11.610 Type 2 diabetes mellitus with diabetic neuropathic arthropathy; E11.42 Type 2 diabetes mellitus with diabetic polyneuropathy; E11.69 Type 2 diabetes mellitus with other specified complication; M86.572 Other chronic hematogenous osteomyelitis, left ankle and foot; J43.9 Emphysema, unspecified; B95.62 Methicillin resistant Staphylococcus aureus infection as the cause of diseases classified elsewhere; I25.2 Old myocardial infarction; K21.9 Gastro-esophageal reflux disease without esophagitis; J45.909 Unspecified asthma, uncomplicated; I11.0 Hypertensive heart disease with heart failure; I50.9 Heart failure, unspecified; M19.90 Unspecified osteoarthritis, unspecified site; I87.2 Venous insufficiency (chronic) (peripheral); E78.5 Hyperlipidemia, unspecified; Q82.0 Hereditary lymphedema; F10.10 Alcohol abuse, uncomplicated; F17.200 Nicotine dependence, unspecified, uncomplicated; Z79.899 Other long term (current) drug therapy
CPT/HCPCS: 73630; 97597

== ENCOUNTER 2019-08-11 10:20 | Day surgery (SDC) | payer MEDICAID ==
[~2019-08-11 10:20] MED LIST changes: +LIDOcaine 2% 5ml jelly ONE
[2019-08-11 11:04] LABS: BASOPHILS # (AUTO) 0.1 X10'3 (0-0.2); BASOPHILS % (AUTO) 1.4 % (0-1); EOSINOPHILS # (AUTO) 0.3 X10'3 (0-0.9); EOSINOPHILS % (AUTO) 5.1 % (0-6); HEMATOCRIT 40.5 % (42.0-52.0); HEMOGLOBIN 13.8 g/dl (14.0-17.9); LYMPHOCYTES % (AUTO) 17.9 % (21-51); MEAN CORPUSCULAR HEMOGLOBIN 34.2 PG (27.0-31.0); MEAN CORPUSCULAR HGB CONC 34.1 g/dL (33.0-36.5); MEAN CORPUSCULAR VOLUME 100.4 FL (78-98); MEAN PLATELET VOLUME 8.6 FL (7.4-10.4); MONOCYTES # (AUTO) 0.6 X10'3 (0-0.9); MONOCYTES % (AUTO) 10.4 % (2-12); NEUTROPHILS # (AUTO) 3.7 X10'3 (1.8-7.7); NEUTROPHILS % (AUTO) 65.2 % (42-75); PLATELET COUNT 93 X10'3 (140-440); RED BLOOD COUNT 4.04 X10'6 (4.70-6.10); RED CELL DISTRIBUTION WIDTH 13.6 % (11.5-14.5); WHITE BLOOD COUNT 5.7 X10'3 (4.5-11.0)
[2019-08-11 11:19] LABS: ALANINE AMINOTRANSFERASE 14 U/L (12-78); ALBUMIN 2.9 G/DL (3.4-5.0); ALBUMIN/GLOBULIN RATIO 0.6 (1.1-1.5); ALKALINE PHOSPHATASE 68 IU/L (46-116); ANION GAP 8 (8-16); ASPARTATE AMINO TRANSFERASE 32 U/L (10-37); BILIRUBIN,TOTAL 1.4 MG/DL (0.1-1.0); BLOOD UREA NITROGEN 7 MG/DL (7-18); BUN/CREATININE RATIO 6.9 (5.4-32.0); CALCIUM 8.6 MG/DL (8.5-10.1); CHLORIDE 99 MMOL/L (99-107); CREATININE 1.01 MG/DL (0.60-1.10); GLUCOSE 125 MG/DL (70-104); POTASSIUM 3.4 MMOL/L (3.5-5.1); SODIUM 135 MMOL/L (135-145); TOTAL PROTEIN 7.7 G/DL (6.4-8.2); eGFR 76 ML/MIN
[2019-08-11 11:21] LABS: LARGE PLATELETS FEW; PLATELET ESTIMATE DECREASED
[2019-08-11 11:24] LABS: HEMOGLOBIN A1C 5.4 % (4.5-6.2)
[2019-08-11] MEDS ORDERED: nystatin/triamcinolone cream 15gm TP ONE (11:40)
== END 2019-08-11 12:04 | disposition home or self-care (01) ==
LOC: WOUND CARE 10:20
PROVIDERS: ATTEND Nurse Practitioner
DX: E11.621 Type 2 diabetes mellitus with foot ulcer (principal); L97.522 Non-pressure chronic ulcer of other part of left foot with fat layer exposed; E11.622 Type 2 diabetes mellitus with other skin ulcer; L97.221 Non-pressure chronic ulcer of left calf limited to breakdown of skin; E11.610 Type 2 diabetes mellitus with diabetic neuropathic arthropathy; E11.42 Type 2 diabetes mellitus with diabetic polyneuropathy; E11.69 Type 2 diabetes mellitus with other specified complication; M86.572 Other chronic hematogenous osteomyelitis, left ankle and foot; J43.9 Emphysema, unspecified; B95.62 Methicillin resistant Staphylococcus aureus infection as the cause of diseases classified elsewhere; I25.2 Old myocardial infarction; K21.9 Gastro-esophageal reflux disease without esophagitis; J45.909 Unspecified asthma, uncomplicated; I11.0 Hypertensive heart disease with heart failure; I50.9 Heart failure, unspecified; M19.90 Unspecified osteoarthritis, unspecified site; I87.2 Venous insufficiency (chronic) (peripheral); E78.5 Hyperlipidemia, unspecified; Q82.0 Hereditary lymphedema; F10.10 Alcohol abuse, uncomplicated; F17.200 Nicotine dependence, unspecified, uncomplicated; Z79.899 Other long term (current) drug therapy
CPT/HCPCS: 11042; 36415; 80053; 83036; 85025; 93922; 93925; 93970; 97597; J7999

== ENCOUNTER 2019-08-18 10:00 | Day surgery (SDC) | payer MEDICAID ==
[~2019-08-18 10:00] MED LIST changes: -LIDOcaine 2% 5ml jelly ONE
[2019-08-18] MEDS ORDERED: LIDOcaine 2% 5ml jelly ONE (10:31)
[2019-08-18] MEDS ORDERED: nystatin/triamcinolone cream 15gm TP ONE (10:58)
== END 2019-08-18 11:31 | disposition home or self-care (01) ==
LOC: WOUND CARE 10:00
PROVIDERS: ATTEND Nurse Practitioner
DX: E11.621 Type 2 diabetes mellitus with foot ulcer (principal); L97.522 Non-pressure chronic ulcer of other part of left foot with fat layer exposed; E11.622 Type 2 diabetes mellitus with other skin ulcer; L97.221 Non-pressure chronic ulcer of left calf limited to breakdown of skin; E11.610 Type 2 diabetes mellitus with diabetic neuropathic arthropathy; E11.42 Type 2 diabetes mellitus with diabetic polyneuropathy; E11.69 Type 2 diabetes mellitus with other specified complication; M86.572 Other chronic hematogenous osteomyelitis, left ankle and foot; J43.9 Emphysema, unspecified; B95.62 Methicillin resistant Staphylococcus aureus infection as the cause of diseases classified elsewhere; I25.2 Old myocardial infarction; K21.9 Gastro-esophageal reflux disease without esophagitis; J45.909 Unspecified asthma, uncomplicated; I11.0 Hypertensive heart disease with heart failure; I50.9 Heart failure, unspecified; M19.90 Unspecified osteoarthritis, unspecified site; I87.2 Venous insufficiency (chronic) (peripheral); E78.5 Hyperlipidemia, unspecified; Q82.0 Hereditary lymphedema; F10.10 Alcohol abuse, uncomplicated; F17.200 Nicotine dependence, unspecified, uncomplicated; Z79.899 Other long term (current) drug therapy
CPT/HCPCS: 36415; 85651; 86140; 97597; J7999

== ENCOUNTER 2019-08-25 09:40 | Day surgery (SDC) | payer MEDICAID ==
[2019-08-25] MEDS ORDERED: LIDOcaine 2% 5ml jelly ONE ×2 (09:53→10:02)
[2019-08-25] MEDS ORDERED: nystatin/triamcinolone cream 15gm TP ONE (10:14)
== END 2019-08-25 10:38 | disposition home or self-care (01) ==
LOC: WOUND CARE 09:40
PROVIDERS: ATTEND Nurse Practitioner
DX: E11.621 Type 2 diabetes mellitus with foot ulcer (principal); L97.522 Non-pressure chronic ulcer of other part of left foot with fat layer exposed; E11.622 Type 2 diabetes mellitus with other skin ulcer; L97.221 Non-pressure chronic ulcer of left calf limited to breakdown of skin; E11.610 Type 2 diabetes mellitus with diabetic neuropathic arthropathy; E11.42 Type 2 diabetes mellitus with diabetic polyneuropathy; E11.69 Type 2 diabetes mellitus with other specified complication; M86.572 Other chronic hematogenous osteomyelitis, left ankle and foot; J43.9 Emphysema, unspecified; B95.62 Methicillin resistant Staphylococcus aureus infection as the cause of diseases classified elsewhere; I25.2 Old myocardial infarction; K21.9 Gastro-esophageal reflux disease without esophagitis; J45.909 Unspecified asthma, uncomplicated; I11.0 Hypertensive heart disease with heart failure; I50.9 Heart failure, unspecified; M19.90 Unspecified osteoarthritis, unspecified site; I87.2 Venous insufficiency (chronic) (peripheral); E78.5 Hyperlipidemia, unspecified; Q82.0 Hereditary lymphedema; F10.10 Alcohol abuse, uncomplicated; F17.200 Nicotine dependence, unspecified, uncomplicated; Z79.899 Other long term (current) drug therapy
CPT/HCPCS: 97597; J7999

== ENCOUNTER 2019-09-01 09:45 | Day surgery (SDC) | payer MEDICAID | END 2019-09-01 10:21 | disposition home or self-care (01) | LOC: WOUND CARE 09:45 | PROVIDERS: ATTEND Nurse Practitioner | DX: E11.621 Type 2 diabetes mellitus with foot ulcer (principal); L97.522 Non-pressure chronic ulcer of other part of left foot with fat layer exposed; E11.622 Type 2 diabetes mellitus with other skin ulcer; L97.221 Non-pressure chronic ulcer of left calf limited to breakdown of skin; E11.610 Type 2 diabetes mellitus with diabetic neuropathic arthropathy; E11.42 Type 2 diabetes mellitus with diabetic polyneuropathy; E11.69 Type 2 diabetes mellitus with other specified complication; M86.572 Other chronic hematogenous osteomyelitis, left ankle and foot; J43.9 Emphysema, unspecified; B95.62 Methicillin resistant Staphylococcus aureus infection as the cause of diseases classified elsewhere; I25.2 Old myocardial infarction; K21.9 Gastro-esophageal reflux disease without esophagitis; J45.909 Unspecified asthma, uncomplicated; I11.0 Hypertensive heart disease with heart failure; I50.9 Heart failure, unspecified; M19.90 Unspecified osteoarthritis, unspecified site; I87.2 Venous insufficiency (chronic) (peripheral); E78.5 Hyperlipidemia, unspecified; Q82.0 Hereditary lymphedema; F10.10 Alcohol abuse, uncomplicated; F17.200 Nicotine dependence, unspecified, uncomplicated; Z79.899 Other long term (current) drug therapy | CPT/HCPCS: 73700; 97597 ==

== ENCOUNTER 2019-09-06 09:30 | Day surgery (SDC) | payer MEDICAID ==
[2019-09-06] MEDS ORDERED: LIDOcaine 2% 5ml jelly ONE (09:54)
== END 2019-09-06 10:45 | disposition home or self-care (01) ==
LOC: WOUND CARE 09:30
PROVIDERS: ATTEND Nurse Practitioner
DX: E11.621 Type 2 diabetes mellitus with foot ulcer (principal); L97.522 Non-pressure chronic ulcer of other part of left foot with fat layer exposed; E11.622 Type 2 diabetes mellitus with other skin ulcer; L97.221 Non-pressure chronic ulcer of left calf limited to breakdown of skin; E11.610 Type 2 diabetes mellitus with diabetic neuropathic arthropathy; E11.42 Type 2 diabetes mellitus with diabetic polyneuropathy; E11.69 Type 2 diabetes mellitus with other specified complication; M86.572 Other chronic hematogenous osteomyelitis, left ankle and foot; J43.9 Emphysema, unspecified; B95.62 Methicillin resistant Staphylococcus aureus infection as the cause of diseases classified elsewhere; I25.2 Old myocardial infarction; K21.9 Gastro-esophageal reflux disease without esophagitis; J45.909 Unspecified asthma, uncomplicated; I11.0 Hypertensive heart disease with heart failure; I50.9 Heart failure, unspecified; M19.90 Unspecified osteoarthritis, unspecified site; I87.2 Venous insufficiency (chronic) (peripheral); E78.5 Hyperlipidemia, unspecified; Q82.0 Hereditary lymphedema; F10.10 Alcohol abuse, uncomplicated; F17.200 Nicotine dependence, unspecified, uncomplicated; Z79.899 Other long term (current) drug therapy
CPT/HCPCS: 97597

== ENCOUNTER 2019-09-10 09:50 | Day surgery (SDC) | payer MEDICAID ==
[2019-09-10] MEDS ORDERED: LIDOcaine 2% 5ml jelly ONE (10:10)
== END 2019-09-10 11:16 | disposition home or self-care (01) ==
LOC: WOUND CARE 09:50
PROVIDERS: ATTEND Nurse Practitioner
DX: E11.621 Type 2 diabetes mellitus with foot ulcer (principal); L97.522 Non-pressure chronic ulcer of other part of left foot with fat layer exposed; E11.622 Type 2 diabetes mellitus with other skin ulcer; L97.221 Non-pressure chronic ulcer of left calf limited to breakdown of skin; E11.610 Type 2 diabetes mellitus with diabetic neuropathic arthropathy; E11.42 Type 2 diabetes mellitus with diabetic polyneuropathy; E11.69 Type 2 diabetes mellitus with other specified complication; M86.572 Other chronic hematogenous osteomyelitis, left ankle and foot; J43.9 Emphysema, unspecified; B95.62 Methicillin resistant Staphylococcus aureus infection as the cause of diseases classified elsewhere; I25.2 Old myocardial infarction; K21.9 Gastro-esophageal reflux disease without esophagitis; J45.909 Unspecified asthma, uncomplicated; I11.0 Hypertensive heart disease with heart failure; I50.9 Heart failure, unspecified; M19.90 Unspecified osteoarthritis, unspecified site; I87.2 Venous insufficiency (chronic) (peripheral); E78.5 Hyperlipidemia, unspecified; Q82.0 Hereditary lymphedema; F10.10 Alcohol abuse, uncomplicated; F17.200 Nicotine dependence, unspecified, uncomplicated; Z79.899 Other long term (current) drug therapy
CPT/HCPCS: 97597

== ENCOUNTER 2019-09-17 09:55 | Day surgery (SDC) | payer MEDICAID ==
[~2019-09-17 09:55] MED LIST changes: +LIDOcaine 2% 5ml jelly ONE
== END 2019-09-17 11:02 | disposition home or self-care (01) ==
LOC: WOUND CARE 09:55
PROVIDERS: ATTEND Nurse Practitioner
DX: E11.621 Type 2 diabetes mellitus with foot ulcer (principal); L97.522 Non-pressure chronic ulcer of other part of left foot with fat layer exposed; E11.622 Type 2 diabetes mellitus with other skin ulcer; L97.221 Non-pressure chronic ulcer of left calf limited to breakdown of skin; E11.610 Type 2 diabetes mellitus with diabetic neuropathic arthropathy; E11.42 Type 2 diabetes mellitus with diabetic polyneuropathy; E11.69 Type 2 diabetes mellitus with other specified complication; M86.572 Other chronic hematogenous osteomyelitis, left ankle and foot; J43.9 Emphysema, unspecified; B95.62 Methicillin resistant Staphylococcus aureus infection as the cause of diseases classified elsewhere; I25.2 Old myocardial infarction; K21.9 Gastro-esophageal reflux disease without esophagitis; J45.909 Unspecified asthma, uncomplicated; I11.0 Hypertensive heart disease with heart failure; I50.9 Heart failure, unspecified; M19.90 Unspecified osteoarthritis, unspecified site; I87.2 Venous insufficiency (chronic) (peripheral); E78.5 Hyperlipidemia, unspecified; Q82.0 Hereditary lymphedema; F10.10 Alcohol abuse, uncomplicated; F17.200 Nicotine dependence, unspecified, uncomplicated; Z79.899 Other long term (current) drug therapy
CPT/HCPCS: 29581

== ENCOUNTER 2019-09-24 10:26 | Day surgery (SDC) | payer MEDICAID ==
[~2019-09-24 10:26] MED LIST changes: -LIDOcaine 2% 5ml jelly ONE
[2019-09-24] MEDS ORDERED: LIDOcaine 2% 5ml jelly ONE (10:46)
== END 2019-09-24 11:44 | disposition home or self-care (01) ==
LOC: WOUND CARE 10:26
PROVIDERS: ATTEND Nurse Practitioner
DX: E11.621 Type 2 diabetes mellitus with foot ulcer (principal); L97.522 Non-pressure chronic ulcer of other part of left foot with fat layer exposed; E11.622 Type 2 diabetes mellitus with other skin ulcer; L97.221 Non-pressure chronic ulcer of left calf limited to breakdown of skin; E11.610 Type 2 diabetes mellitus with diabetic neuropathic arthropathy; E11.42 Type 2 diabetes mellitus with diabetic polyneuropathy; E11.69 Type 2 diabetes mellitus with other specified complication; M86.572 Other chronic hematogenous osteomyelitis, left ankle and foot; J43.9 Emphysema, unspecified; B95.62 Methicillin resistant Staphylococcus aureus infection as the cause of diseases classified elsewhere; I25.2 Old myocardial infarction; K21.9 Gastro-esophageal reflux disease without esophagitis; J45.909 Unspecified asthma, uncomplicated; I11.0 Hypertensive heart disease with heart failure; I50.9 Heart failure, unspecified; M19.90 Unspecified osteoarthritis, unspecified site; I87.2 Venous insufficiency (chronic) (peripheral); E78.5 Hyperlipidemia, unspecified; Q82.0 Hereditary lymphedema; F10.10 Alcohol abuse, uncomplicated; F17.200 Nicotine dependence, unspecified, uncomplicated; Z79.899 Other long term (current) drug therapy
CPT/HCPCS: 97597

== ENCOUNTER 2019-10-01 09:30 | Day surgery (SDC) | payer MEDICAID ==
[2019-10-01] MEDS ORDERED: LIDOcaine 2% 5ml jelly ONE (09:58)
== END 2019-10-01 10:56 | disposition home or self-care (01) ==
LOC: WOUND CARE 09:30
PROVIDERS: ATTEND Nurse Practitioner
DX: E11.621 Type 2 diabetes mellitus with foot ulcer (principal); L97.522 Non-pressure chronic ulcer of other part of left foot with fat layer exposed; E11.622 Type 2 diabetes mellitus with other skin ulcer; L97.221 Non-pressure chronic ulcer of left calf limited to breakdown of skin; E11.610 Type 2 diabetes mellitus with diabetic neuropathic arthropathy; E11.42 Type 2 diabetes mellitus with diabetic polyneuropathy; E11.69 Type 2 diabetes mellitus with other specified complication; M86.572 Other chronic hematogenous osteomyelitis, left ankle and foot; J43.9 Emphysema, unspecified; B95.62 Methicillin resistant Staphylococcus aureus infection as the cause of diseases classified elsewhere; I25.2 Old myocardial infarction; K21.9 Gastro-esophageal reflux disease without esophagitis; J45.909 Unspecified asthma, uncomplicated; I11.0 Hypertensive heart disease with heart failure; I50.9 Heart failure, unspecified; M19.90 Unspecified osteoarthritis, unspecified site; I87.2 Venous insufficiency (chronic) (peripheral); E78.5 Hyperlipidemia, unspecified; Q82.0 Hereditary lymphedema; F10.10 Alcohol abuse, uncomplicated; F17.200 Nicotine dependence, unspecified, uncomplicated; Z79.899 Other long term (current) drug therapy
CPT/HCPCS: 97597

== ENCOUNTER 2019-10-07 10:00 | Day surgery (SDC) | payer MEDICAID ==
[2019-10-07] MEDS ORDERED: LIDOcaine 2% 5ml jelly ONE (10:22)
== END 2019-10-07 11:13 | disposition home or self-care (01) ==
LOC: WOUND CARE 10:00
PROVIDERS: ATTEND Nurse Practitioner
DX: E11.621 Type 2 diabetes mellitus with foot ulcer (principal); L97.522 Non-pressure chronic ulcer of other part of left foot with fat layer exposed; E11.622 Type 2 diabetes mellitus with other skin ulcer; L97.221 Non-pressure chronic ulcer of left calf limited to breakdown of skin; E11.610 Type 2 diabetes mellitus with diabetic neuropathic arthropathy; E11.42 Type 2 diabetes mellitus with diabetic polyneuropathy; E11.69 Type 2 diabetes mellitus with other specified complication; M86.572 Other chronic hematogenous osteomyelitis, left ankle and foot; J43.9 Emphysema, unspecified; B95.62 Methicillin resistant Staphylococcus aureus infection as the cause of diseases classified elsewhere; I25.2 Old myocardial infarction; K21.9 Gastro-esophageal reflux disease without esophagitis; J45.909 Unspecified asthma, uncomplicated; I11.0 Hypertensive heart disease with heart failure; I50.9 Heart failure, unspecified; M19.90 Unspecified osteoarthritis, unspecified site; I87.2 Venous insufficiency (chronic) (peripheral); E78.5 Hyperlipidemia, unspecified; Q82.0 Hereditary lymphedema; F10.10 Alcohol abuse, uncomplicated; F17.200 Nicotine dependence, unspecified, uncomplicated; Z79.899 Other long term (current) drug therapy
CPT/HCPCS: 97597

== ENCOUNTER 2019-10-14 10:05 | Day surgery (SDC) | payer MEDICAID ==
[2019-10-14] MEDS ORDERED: LIDOcaine 2% 5ml jelly ONE (10:08)
== END 2019-10-14 11:01 | disposition home or self-care (01) ==
LOC: WOUND CARE 10:05
PROVIDERS: ATTEND Nurse Practitioner
DX: E11.621 Type 2 diabetes mellitus with foot ulcer (principal); L97.522 Non-pressure chronic ulcer of other part of left foot with fat layer exposed; E11.622 Type 2 diabetes mellitus with other skin ulcer; L97.221 Non-pressure chronic ulcer of left calf limited to breakdown of skin; E11.610 Type 2 diabetes mellitus with diabetic neuropathic arthropathy; E11.42 Type 2 diabetes mellitus with diabetic polyneuropathy; E11.69 Type 2 diabetes mellitus with other specified complication; M86.572 Other chronic hematogenous osteomyelitis, left ankle and foot; J43.9 Emphysema, unspecified; B95.62 Methicillin resistant Staphylococcus aureus infection as the cause of diseases classified elsewhere; I25.2 Old myocardial infarction; K21.9 Gastro-esophageal reflux disease without esophagitis; J45.909 Unspecified asthma, uncomplicated; I11.0 Hypertensive heart disease with heart failure; I50.9 Heart failure, unspecified; M19.90 Unspecified osteoarthritis, unspecified site; I87.2 Venous insufficiency (chronic) (peripheral); E78.5 Hyperlipidemia, unspecified; Q82.0 Hereditary lymphedema; F10.10 Alcohol abuse, uncomplicated; F17.200 Nicotine dependence, unspecified, uncomplicated; Z79.899 Other long term (current) drug therapy
CPT/HCPCS: 97597

== ENCOUNTER 2019-10-21 10:30 | Day surgery (SDC) | payer MEDICAID ==
[2019-10-21] MEDS ORDERED: LIDOcaine 2% 5ml jelly ONE (10:58)
== END 2019-10-21 11:32 | disposition home or self-care (01) ==
LOC: WOUND CARE 10:30
PROVIDERS: ATTEND Nurse Practitioner
DX: E11.621 Type 2 diabetes mellitus with foot ulcer (principal); L97.522 Non-pressure chronic ulcer of other part of left foot with fat layer exposed; E11.622 Type 2 diabetes mellitus with other skin ulcer; L97.221 Non-pressure chronic ulcer of left calf limited to breakdown of skin; E11.610 Type 2 diabetes mellitus with diabetic neuropathic arthropathy; E11.42 Type 2 diabetes mellitus with diabetic polyneuropathy; E11.69 Type 2 diabetes mellitus with other specified complication; M86.572 Other chronic hematogenous osteomyelitis, left ankle and foot; J43.9 Emphysema, unspecified; B95.62 Methicillin resistant Staphylococcus aureus infection as the cause of diseases classified elsewhere; I25.2 Old myocardial infarction; K21.9 Gastro-esophageal reflux disease without esophagitis; J45.909 Unspecified asthma, uncomplicated; I11.0 Hypertensive heart disease with heart failure; I50.9 Heart failure, unspecified; M19.90 Unspecified osteoarthritis, unspecified site; I87.2 Venous insufficiency (chronic) (peripheral); E78.5 Hyperlipidemia, unspecified; Q82.0 Hereditary lymphedema; F10.10 Alcohol abuse, uncomplicated; F17.200 Nicotine dependence, unspecified, uncomplicated; Z79.899 Other long term (current) drug therapy
CPT/HCPCS: 97597

== ENCOUNTER 2019-10-27 13:30 | Emergency (ER) | payer MEDICAID ==
[~2019-10-27] VITALS: Ht 188 cm; Wt 150.0 kg
--- NOTE | 2019-10-27 10:25 | NUR ---
Two staff nurses each one attempt for IV access, unable to obtain at this time. Will attempt at a later time if the IV access is needed prior to disposition.
--- NOTE | 2019-10-27 11:16 | NUR ---
Vascular staff phoned to inform the ED that as soon as one of the vascular study machines is available a tech will be here to obtain the study of his lower extremities. Pt given a gown and offered assistance to change into a hospital gown. Pt refused to change out of his shorts into a gown at this time.
[2019-10-27 11:24] LABS: EOSINOPHILS # (AUTO) 0.2 X10'3 (0-0.9); MONOCYTES # (AUTO) 0.6 X10'3 (0-0.9)
[2019-10-27 11:26] LABS: BASOPHILS % (AUTO) 0.8 % (0-1); HEMATOCRIT 38.3 % (42.0-52.0); HEMOGLOBIN 12.9 g/dl (14.0-17.9); LYMPHOCYTES % (AUTO) 16.2 % (21-51); MEAN CORPUSCULAR HEMOGLOBIN 35.2 PG (27.0-31.0); MEAN CORPUSCULAR HGB CONC 33.8 g/dL (33.0-36.5); MEAN CORPUSCULAR VOLUME 104.2 FL (78-98); MONOCYTES % (AUTO) 9.9 % (2-12); NEUTROPHILS # (AUTO) 4.2 X10'3 (1.8-7.7); NEUTROPHILS % (AUTO) 70.1 % (42-75); PLATELET COUNT 106 X10'3 (140-440); RED BLOOD COUNT 3.68 X10'6 (4.70-6.10); RED CELL DISTRIBUTION WIDTH 14.5 % (11.5-14.5)
[2019-10-27 11:39] LABS: ALANINE AMINOTRANSFERASE 17 U/L (12-78); ALBUMIN 2.8 G/DL (3.4-5.0); ALBUMIN/GLOBULIN RATIO 0.6 (1.1-1.5); ALKALINE PHOSPHATASE 106 IU/L (46-116); ANION GAP 3 (8-16); ASPARTATE AMINO TRANSFERASE 60 U/L (10-37); BILIRUBIN,TOTAL 1.7 MG/DL (0.1-1.0); BLOOD UREA NITROGEN 3 MG/DL (7-18); BUN/CREATININE RATIO 3.2 (5.4-32.0); CALCIUM 8.7 MG/DL (8.5-10.1); CHLORIDE 96 MMOL/L (99-107); CREATININE 0.94 MG/DL (0.60-1.10); GLUCOSE 112 MG/DL (70-104); POTASSIUM 3.4 MMOL/L (3.5-5.1); SODIUM 132 MMOL/L (135-145); TOTAL CARBON DIOXIDE 32.9 MMOL/L (24-32); TOTAL PROTEIN 7.7 G/DL (6.4-8.2); eGFR 82 ML/MIN
[2019-10-27 13:11] VITALS: BP 151/78
[~2019-10-27 13:30] MED LIST changes: +ALBU8HFA PO; +PRED20TA PO; +dexamethasone sod phosphate 10mg/ml inj IM STA
== END 2019-10-27 14:20 | disposition home or self-care (01) ==
LOC: WOUND CARE 13:30
DX: J44.1 Chronic obstructive pulmonary disease with (acute) exacerbation (principal); S81.802D Unspecified open wound, left lower leg, subsequent encounter; I50.9 Heart failure, unspecified; Z98.890 Other specified postprocedural states; Z79.899 Other long term (current) drug therapy; X58.XXXD Exposure to other specified factors, subsequent encounter
CPT/HCPCS: 71045; 80053; 83880; 84484; 85025; 93005; 96372; 97597; 99285; J1100

== ENCOUNTER 2019-11-03 09:35 | Day surgery (SDC) | payer MEDICAID ==
[~2019-11-03 09:35] MED LIST changes: -dexamethasone sod phosphate 10mg/ml inj IM STA
[2019-11-03] MEDS ORDERED: LIDOcaine 2% 5ml jelly ONE (09:58)
== END 2019-11-03 11:02 | disposition home or self-care (01) ==
LOC: WOUND CARE 09:35
PROVIDERS: ATTEND Nurse Practitioner
DX: E11.621 Type 2 diabetes mellitus with foot ulcer (principal); L97.522 Non-pressure chronic ulcer of other part of left foot with fat layer exposed; E11.622 Type 2 diabetes mellitus with other skin ulcer; L97.221 Non-pressure chronic ulcer of left calf limited to breakdown of skin; E11.610 Type 2 diabetes mellitus with diabetic neuropathic arthropathy; E11.42 Type 2 diabetes mellitus with diabetic polyneuropathy; E11.69 Type 2 diabetes mellitus with other specified complication; M86.572 Other chronic hematogenous osteomyelitis, left ankle and foot; J43.9 Emphysema, unspecified; B95.62 Methicillin resistant Staphylococcus aureus infection as the cause of diseases classified elsewhere; I25.2 Old myocardial infarction; K21.9 Gastro-esophageal reflux disease without esophagitis; J45.909 Unspecified asthma, uncomplicated; I11.0 Hypertensive heart disease with heart failure; I50.9 Heart failure, unspecified; M19.90 Unspecified osteoarthritis, unspecified site; I87.2 Venous insufficiency (chronic) (peripheral); E78.5 Hyperlipidemia, unspecified; Q82.0 Hereditary lymphedema; F10.10 Alcohol abuse, uncomplicated; F17.200 Nicotine dependence, unspecified, uncomplicated; Z79.899 Other long term (current) drug therapy
CPT/HCPCS: 97597

== ENCOUNTER 2019-11-10 09:42 | Day surgery (SDC) | payer MEDICAID ==
[2019-11-10] MEDS ORDERED: LIDOcaine 2% 5ml jelly ONE (09:55)
== END 2019-11-10 12:05 | disposition home or self-care (01) ==
LOC: WOUND CARE 09:42
PROVIDERS: ATTEND Nurse Practitioner
DX: E11.621 Type 2 diabetes mellitus with foot ulcer (principal); L97.522 Non-pressure chronic ulcer of other part of left foot with fat layer exposed; E11.622 Type 2 diabetes mellitus with other skin ulcer; L97.221 Non-pressure chronic ulcer of left calf limited to breakdown of skin; L97.811 Non-pressure chronic ulcer of other part of right lower leg limited to breakdown of skin; I87.8 Other specified disorders of veins; E11.610 Type 2 diabetes mellitus with diabetic neuropathic arthropathy; E11.42 Type 2 diabetes mellitus with diabetic polyneuropathy; E11.69 Type 2 diabetes mellitus with other specified complication; M86.572 Other chronic hematogenous osteomyelitis, left ankle and foot; J43.9 Emphysema, unspecified; B95.62 Methicillin resistant Staphylococcus aureus infection as the cause of diseases classified elsewhere; I25.2 Old myocardial infarction; K21.9 Gastro-esophageal reflux disease without esophagitis; J45.909 Unspecified asthma, uncomplicated; I11.0 Hypertensive heart disease with heart failure; I50.9 Heart failure, unspecified; M19.90 Unspecified osteoarthritis, unspecified site; I87.2 Venous insufficiency (chronic) (peripheral); E78.5 Hyperlipidemia, unspecified; Q82.0 Hereditary lymphedema; F10.10 Alcohol abuse, uncomplicated; F17.200 Nicotine dependence, unspecified, uncomplicated; Z79.899 Other long term (current) drug therapy
CPT/HCPCS: 29580; 97597

== ENCOUNTER 2019-11-17 10:00 | Day surgery (SDC) | payer MEDICAID ==
[2019-11-17] MEDS ORDERED: LIDOcaine 2% 5ml jelly ONE (10:29)
== END 2019-11-17 12:42 | disposition home or self-care (01) ==
LOC: WOUND CARE 10:00
PROVIDERS: ATTEND Nurse Practitioner
DX: E11.621 Type 2 diabetes mellitus with foot ulcer (principal); L97.522 Non-pressure chronic ulcer of other part of left foot with fat layer exposed; E11.622 Type 2 diabetes mellitus with other skin ulcer; L97.221 Non-pressure chronic ulcer of left calf limited to breakdown of skin; I83.018 Varicose veins of right lower extremity with ulcer other part of lower leg; L97.811 Non-pressure chronic ulcer of other part of right lower leg limited to breakdown of skin; E11.610 Type 2 diabetes mellitus with diabetic neuropathic arthropathy; E11.42 Type 2 diabetes mellitus with diabetic polyneuropathy; E11.69 Type 2 diabetes mellitus with other specified complication; M86.572 Other chronic hematogenous osteomyelitis, left ankle and foot; J43.9 Emphysema, unspecified; B95.62 Methicillin resistant Staphylococcus aureus infection as the cause of diseases classified elsewhere; I25.2 Old myocardial infarction; K21.9 Gastro-esophageal reflux disease without esophagitis; J45.909 Unspecified asthma, uncomplicated; I11.0 Hypertensive heart disease with heart failure; I50.9 Heart failure, unspecified; M19.90 Unspecified osteoarthritis, unspecified site; I87.2 Venous insufficiency (chronic) (peripheral); E78.5 Hyperlipidemia, unspecified; Q82.0 Hereditary lymphedema; F10.10 Alcohol abuse, uncomplicated; F17.200 Nicotine dependence, unspecified, uncomplicated; Z79.899 Other long term (current) drug therapy
CPT/HCPCS: 87070; 87075; 87102; 97597

== ENCOUNTER 2019-11-25 09:50 | Day surgery (SDC) | payer MEDICAID ==
[2019-11-25] MEDS ORDERED: LIDOcaine 2% 5ml jelly ONE (10:17)
== END 2019-11-25 11:28 | disposition home or self-care (01) ==
LOC: WOUND CARE 09:50
PROVIDERS: ATTEND Nurse Practitioner
DX: E11.621 Type 2 diabetes mellitus with foot ulcer (principal); L97.522 Non-pressure chronic ulcer of other part of left foot with fat layer exposed; E11.622 Type 2 diabetes mellitus with other skin ulcer; L97.221 Non-pressure chronic ulcer of left calf limited to breakdown of skin; I83.018 Varicose veins of right lower extremity with ulcer other part of lower leg; L97.811 Non-pressure chronic ulcer of other part of right lower leg limited to breakdown of skin; E11.610 Type 2 diabetes mellitus with diabetic neuropathic arthropathy; E11.42 Type 2 diabetes mellitus with diabetic polyneuropathy; E11.69 Type 2 diabetes mellitus with other specified complication; M86.572 Other chronic hematogenous osteomyelitis, left ankle and foot; J43.9 Emphysema, unspecified; B95.62 Methicillin resistant Staphylococcus aureus infection as the cause of diseases classified elsewhere; I25.2 Old myocardial infarction; K21.9 Gastro-esophageal reflux disease without esophagitis; J45.909 Unspecified asthma, uncomplicated; I11.0 Hypertensive heart disease with heart failure; I50.9 Heart failure, unspecified; M19.90 Unspecified osteoarthritis, unspecified site; I87.2 Venous insufficiency (chronic) (peripheral); E78.5 Hyperlipidemia, unspecified; Q82.0 Hereditary lymphedema; F10.10 Alcohol abuse, uncomplicated; F17.200 Nicotine dependence, unspecified, uncomplicated; Z79.899 Other long term (current) drug therapy
CPT/HCPCS: 97597

== ENCOUNTER 2019-12-15 09:50 | Day surgery (SDC) | payer MEDICAID ==
[~2019-12-15 09:50] MED LIST changes: -ALBU8HFA PO; -PRED20TA PO
[2019-12-15] MEDS ORDERED: LIDOcaine 2% 5ml jelly ONE (10:10)
[2019-12-22] MEDS ORDERED: LIDOcaine 2% 5ml jelly ONE (10:51)
== END 2019-12-22 12:49 | disposition home or self-care (01) ==
LOC: WOUND CARE 09:50
PROVIDERS: ATTEND Nurse Practitioner
DX: E11.621 Type 2 diabetes mellitus with foot ulcer (principal); L97.522 Non-pressure chronic ulcer of other part of left foot with fat layer exposed; E11.622 Type 2 diabetes mellitus with other skin ulcer; L97.221 Non-pressure chronic ulcer of left calf limited to breakdown of skin; I83.018 Varicose veins of right lower extremity with ulcer other part of lower leg; L97.811 Non-pressure chronic ulcer of other part of right lower leg limited to breakdown of skin; E11.610 Type 2 diabetes mellitus with diabetic neuropathic arthropathy; E11.42 Type 2 diabetes mellitus with diabetic polyneuropathy; E11.69 Type 2 diabetes mellitus with other specified complication; M86.572 Other chronic hematogenous osteomyelitis, left ankle and foot; J43.9 Emphysema, unspecified; B95.62 Methicillin resistant Staphylococcus aureus infection as the cause of diseases classified elsewhere; I25.2 Old myocardial infarction; K21.9 Gastro-esophageal reflux disease without esophagitis; J45.909 Unspecified asthma, uncomplicated; I11.0 Hypertensive heart disease with heart failure; I50.9 Heart failure, unspecified; M19.90 Unspecified osteoarthritis, unspecified site; I87.2 Venous insufficiency (chronic) (peripheral); E78.5 Hyperlipidemia, unspecified; Q82.0 Hereditary lymphedema; F10.10 Alcohol abuse, uncomplicated; F17.200 Nicotine dependence, unspecified, uncomplicated; Z79.899 Other long term (current) drug therapy
CPT/HCPCS: 97597

== ENCOUNTER 2019-12-29 18:55 | Inpatient (IN) | payer MEDICAID ==
[~2019-12-29] VITALS: Ht 188 cm; Wt 172.5 kg
[~2019-12-29 18:55] MED LIST changes: +LIDOcaine 1% W/epiNEPHrine 1:200,000 10ml vial ONE
[2019-12-29] MEDS ORDERED: LORA10TA7 PO (19:08)
[2019-12-29] MEDS ORDERED: METO50TA17 PO (19:08)
[2019-12-29] MEDS ORDERED: HYDR-4353 PO (19:08)
[2019-12-29] MEDS ORDERED: GABA300C PO (19:09)
[2019-12-29] MEDS ORDERED: normal saline 1000ML IV soln IV ONE (19:10)
[2019-12-29] MEDS ORDERED: vancomycin/NS 1 GM ADD-VANTAGE 250 ML IV ONE (19:10)
[2019-12-29] MEDS ORDERED: piperacillin/tazo 3.375gm/50ml 50 ML IV ONE (19:10)
--- NOTE | 2019-12-29 19:27 | NUR ---
x ray at bedside
[2019-12-29 19:42] LABS: BASOPHILS # (AUTO) 0.1 X10'3 (0-0.2); EOSINOPHILS # (AUTO) 0.4 X10'3 (0-0.9); EOSINOPHILS % (AUTO) 5.9 % (0-6); HEMOGLOBIN 11.4 g/dl (14.0-17.9); LYMPHOCYTES # (AUTO) 1.7 X10'3 (1.1-4.8); MONOCYTES # (AUTO) 0.8 X10'3 (0-0.9)
[2019-12-29 19:44] LABS: HEMATOCRIT 32.3 % (42.0-52.0); LYMPHOCYTES % (AUTO) 27.2 % (21-51); MEAN CORPUSCULAR HEMOGLOBIN 35.5 PG (27.0-31.0); MEAN CORPUSCULAR HGB CONC 35.2 g/dL (33.0-36.5); MEAN CORPUSCULAR VOLUME 100.9 FL (78-98); MONOCYTES % (AUTO) 13.6 % (2-12); NEUTROPHILS # (AUTO) 3.2 X10'3 (1.8-7.7); NEUTROPHILS % (AUTO) 52.3 % (42-75); PLATELET COUNT 107 X10'3 (140-440); RED CELL DISTRIBUTION WIDTH 14.6 % (11.5-14.5); WHITE BLOOD COUNT 6.1 X10'3 (4.5-11.0)
[2019-12-29 20:06] LABS: LACTIC SEPSIS 6.1 MMOL/L (0.4-2.0)
[2019-12-29 20:10] LABS: ALANINE AMINOTRANSFERASE 11 U/L (12-78); ALBUMIN 2.2 G/DL (3.4-5.0); ALBUMIN/GLOBULIN RATIO 0.5 (1.1-1.5); ALKALINE PHOSPHATASE 66 IU/L (46-116); ANION GAP 5 (8-16); ASPARTATE AMINO TRANSFERASE 48 U/L (10-37); BILIRUBIN,TOTAL 3.9 MG/DL (0.1-1.0); CALCIUM 7.1 MG/DL (8.5-10.1); CHLORIDE 83 MMOL/L (99-107); CREATININE 0.99 MG/DL (0.60-1.10); GLUCOSE 121 MG/DL (70-104); SODIUM 123 MMOL/L (135-145); TOTAL CARBON DIOXIDE 35.4 MMOL/L (24-32); TOTAL PROTEIN 6.4 G/DL (6.4-8.2); eGFR 78 ML/MIN
[2019-12-29] MEDS ORDERED: potassium Cl 20 mEq SR tablet PO STA (20:16)
[2019-12-29 20:19] LABS: BLOOD UREA NITROGEN 2 MG/DL (7-18)
[2019-12-29] MEDS ORDERED: potassium Cl 10 mEq/100mL bag IV ONE (20:20)
[2019-12-29] MEDS ORDERED: magnesium 2GM in 50ml NS 50 ML IV ONE (20:20)
[2019-12-29] MEDS ORDERED: normal saline 1000ML IV soln IVB ONE (20:20)
[2019-12-29 20:23] LABS: POTASSIUM 1.6 MMOL/L (3.5-5.1)
[2019-12-29 20:50] LABS: CLARITY,URINE CLEAR (Clear); COLOR,URINE YELLOW (Yellow); GLUCOSE, URINE NEGATIVE (Neg); KETONES,URINE NEGATIVE (Neg); LEUKOCYTE ESTERASE ,URINE LARGE (Neg); NITRITES, URINE NEGATIVE (Neg); OCCULT BLOOD,URINE LARGE (Neg); PROTEIN,URINE NEGATIVE (Neg); UA COLLECTION TYPE CLN CATCH MIDSTREAM
[2019-12-29 20:54] LABS: BACTERIA,URINE 2+ /HPF (Neg); SQUAMOUS EPITHELIAL CELL,UR FEW /LPF (FEW)
[2019-12-29 20:56] LABS: URINE AMPHETAMINE SCREEN NEGATIVE (Neg); URINE BARBITUATE SCREEN NEGATIVE (Neg); URINE BENZODIAZEPINES SCREEN NEGATIVE (Neg); URINE CANNABINOID SCREEN NEGATIVE (Neg); URINE COCAINE SCREEN NEGATIVE (Neg); URINE METHADONE SCREEN NEGATIVE (Neg); URINE OPIATE SCREEN POSITIVE (Neg); URINE PHENCYCLIDINE SCREEN NEGATIVE (Neg)
[2019-12-29] MEDS ORDERED: dextrose ORAL solution 15 GM/59 ML bottle PO PRN ×2 (21:20)
[2019-12-29] MEDS ORDERED: insulin Lispro (HumaLOG) vial - multi-dose SQ SCH (21:20)
[2019-12-29] MEDS ORDERED: Neutra Phos packet PO PRN (21:20)
[2019-12-29] MEDS ORDERED: glucagon, human recombinant 1mg kit SUBCUT PRN (21:20)
[2019-12-29] MEDS: K, MAG and/or Phos replacement - Verify level? MC SCH ×2 (21:20→22:00)
[2019-12-29] MEDS ORDERED: acetaminophen 650mg rectal suppository RC PRN (21:20)
[2019-12-29] MEDS ORDERED: magnesium hydroxide 30ml (MOM) UD suspension PO PRN (21:20)
[2019-12-29] MEDS ORDERED: potassium Cl 20mEq/100mL bag 100 ML IV PRN ×2 (21:20)
[2019-12-29] MEDS ORDERED: sodium phosphate inj. 30 MMOL in dextrose 5%-water 250 ML IV PRN (21:20)
[2019-12-29] MEDS ORDERED: ondansetron/PF 4mg/2ml inj IV PRN (21:20)
[2019-12-29] MEDS ORDERED: sodium phosphate inj. 15 MMOL in dextrose 5%-water 250 ML IV PRN (21:20)
[2019-12-29] MEDS ORDERED: dextrose 50%-water 50ml dispensing syringe IV PRN ×2 (21:20)
[2019-12-29] MEDS ORDERED: MESSAGE TO PHARMACY PO ONE (21:20)
[2019-12-29] MEDS ORDERED: LIDOcaine 2% 10ml TOPICAL JELLY (Urojet) TP ONE (21:20)
[2019-12-29] MEDS ORDERED: acetaminophen 325mg tablet PO PRN ×2 (21:20)
[2019-12-29 21:45] LABS: HEMOGLOBIN A1C 5.7 % (4.5-6.2)
--- NOTE | 2019-12-29 21:45 | NUR ---
PT SISTER RAZIA: [phone]
[2019-12-29 21:51] LABS: MAGNESIUM 1.1 MG/DL (1.5-2.4)
[2019-12-29 21:54] LABS: PHOSPHORUS 1.3 MG/DL (2.3-4.5)
[2019-12-29] MEDS: normal saline 1000ml 1,000 ML IV SCH (22:23)
[2019-12-29] MEDS: HYDROcodone/acetaminophen 5mg/325mg tablet PO PRN (22:23)
[2019-12-29] MEDS ORDERED: LIDOcaine 1% 30ml preserv. free vial IJ STA (22:56)
[2019-12-30] VITALS (23 sets, daily range): BP systolic 96–134; BP diastolic 43–68
[2019-12-30] MEDS ORDERED: magnesium 4gm in 100ml NS 100 ML IV PRN (00:50)
[2019-12-30] MEDS: potassium Cl 20 mEq SR tablet PO PRN ×6 (00:54→23:49)
[2019-12-30] MEDS: potassium CL 10mEq/100ml bag 100 ML IV PRN ×8 (01:00→23:50)
[2019-12-30 02:03] LABS: ALANINE AMINOTRANSFERASE 11 U/L (12-78); ALBUMIN/GLOBULIN RATIO 0.5 (1.1-1.5); ALKALINE PHOSPHATASE 59 IU/L (46-116); ANION GAP 2 (8-16); ASPARTATE AMINO TRANSFERASE 45 U/L (10-37); BILIRUBIN,TOTAL 4.1 MG/DL (0.1-1.0); BLOOD UREA NITROGEN 2 MG/DL (7-18); BUN/CREATININE RATIO 2.5 (5.4-32.0); CALCIUM 6.6 MG/DL (8.5-10.1); CHLORIDE 88 MMOL/L (99-107); CREATININE 0.81 MG/DL (0.60-1.10); GLUCOSE 102 MG/DL (70-104); MAGNESIUM 1.3 MG/DL (1.5-2.4); PHOSPHORUS 1.5 MG/DL (2.3-4.5); SODIUM 127 MMOL/L (135-145); TOTAL CARBON DIOXIDE 37.2 MMOL/L (24-32); TOTAL PROTEIN 5.9 G/DL (6.4-8.2); eGFR > 90 ML/MIN
[2019-12-30 02:05] LABS: POTASSIUM 1.8 MMOL/L (3.5-5.1)
[2019-12-30] MEDS: gabapentin 300mg capsule PO SCH ×4 (02:10→20:21)
[2019-12-30] MEDS: HYDROcodone/acetaminophen 5mg/325mg tablet PO PRN ×4 (02:10→20:21)
[2019-12-30 04:33] LABS: MONOCYTES # (AUTO) 0.8 X10'3 (0-0.9); NEUTROPHILS # (AUTO) 3.2 X10'3 (1.8-7.7); PLATELET COUNT 83 X10'3 (140-440)
[2019-12-30 04:36] LABS: BASOPHILS % (AUTO) 0.8 % (0-1); EOSINOPHILS # (AUTO) 0.3 X10'3 (0-0.9); EOSINOPHILS % (AUTO) 5.9 % (0-6); HEMATOCRIT 31.1 % (42.0-52.0); LYMPHOCYTES # (AUTO) 1.3 X10'3 (1.1-4.8); LYMPHOCYTES % (AUTO) 22.3 % (21-51); MEAN CORPUSCULAR HEMOGLOBIN 35.7 PG (27.0-31.0); MEAN CORPUSCULAR HGB CONC 35.2 g/dL (33.0-36.5); MEAN CORPUSCULAR VOLUME 101.4 FL (78-98); MEAN PLATELET VOLUME 8.1 FL (7.4-10.4); MONOCYTES % (AUTO) 13.6 % (2-12); NEUTROPHILS % (AUTO) 57.4 % (42-75); RED BLOOD COUNT 3.07 X10'6 (4.70-6.10); RED CELL DISTRIBUTION WIDTH 14.6 % (11.5-14.5); WHITE BLOOD COUNT 5.7 X10'3 (4.5-11.0)
[2019-12-30] MEDS: albuterol 2.5 MG/3 ML nebule NEB SCH ×2 (08:41→20:21)
[2019-12-30] MEDS: pantoprazole 40 MG vial IV SCH (09:25)
[2019-12-30] MEDS: piperacillin/tazo 3.375gm/50ml 50 ML IV SCH ×3 (09:26→23:50)
[2019-12-30] MEDS: metoprolol tartrate 50mg tablet PO SCH ×2 (09:26→20:00)
[2019-12-30] MEDS: loratadine 10mg tablet PO SCH (09:26)
[2019-12-30] MEDS ORDERED: POTA8CAP20 PO (11:44)
[2019-12-30 12:52] LABS: MAGNESIUM 1.3 MG/DL (1.5-2.4); PHOSPHORUS 2.9 MG/DL (2.3-4.5)
[2019-12-30 12:53] LABS: POTASSIUM 2.2 MMOL/L (3.5-5.1)
[2019-12-30] MEDS: thiamine inj. 100 MG, MVI, adult No.4 with vit. K 10 ML in dextrose 5% water 500ml 500 ML IV SCH ×3 (14:25)
[2019-12-30] MEDS: folic acid 1mg/0.2ml inj IV SCH (14:26)
[2019-12-30] MEDS: normal saline 1000ml 1,000 ML IV SCH (17:16)
--- NOTE | 2019-12-30 18:18 | NUR ---
Problems reprioritized. Patient report given, questions answered & plan of care reviewed with Charli BORJA.
[2019-12-30] MEDS: heparin, porcine 5000 units/ml vial SQ SCH (20:00)
[2019-12-30] MEDS: lactobacillus rhamnosus 10,000 MMU CELLS/CAPSULE PO SCH (20:21)
[2019-12-30] MEDS ORDERED: insulin glargine (Lantus) pen - multi-dose SQ SCH (21:00)
[2019-12-30 23:34] LABS: POTASSIUM 2.3 MMOL/L (3.5-5.1)
[2019-12-31] VITALS (17 sets, daily range): BP systolic 100–153; BP diastolic 43–76
[2019-12-31] MEDS: potassium CL 10mEq/100ml bag 100 ML IV PRN ×3 (01:14→04:19)
[2019-12-31] MEDS: gabapentin 300mg capsule PO SCH ×4 (02:27→19:08)
[2019-12-31] MEDS ORDERED: VANCOMYCIN LEVEL IV ONE (02:30)
[2019-12-31] MEDS: HYDROcodone/acetaminophen 5mg/325mg tablet PO PRN ×5 (02:35→21:19)
[2019-12-31 03:21] LABS: EOSINOPHILS # (AUTO) 0.3 X10'3 (0-0.9); EOSINOPHILS % (AUTO) 6.8 % (0-6); HEMATOCRIT 30.1 % (42.0-52.0); HEMOGLOBIN 10.5 g/dl (14.0-17.9); LYMPHOCYTES # (AUTO) 1.2 X10'3 (1.1-4.8); MEAN CORPUSCULAR HEMOGLOBIN 35.7 PG (27.0-31.0); MEAN CORPUSCULAR VOLUME 102.2 FL (78-98); MEAN PLATELET VOLUME 8.3 FL (7.4-10.4); MONOCYTES # (AUTO) 0.6 X10'3 (0-0.9); MONOCYTES % (AUTO) 14.5 % (2-12); NEUTROPHILS # (AUTO) 2.1 X10'3 (1.8-7.7); NEUTROPHILS % (AUTO) 49.7 % (42-75); PLATELET COUNT 73 X10'3 (140-440); RED BLOOD COUNT 2.95 X10'6 (4.70-6.10); WHITE BLOOD COUNT 4.2 X10'3 (4.5-11.0)
[2019-12-31 03:33] LABS: ALANINE AMINOTRANSFERASE 10 U/L (12-78); ALBUMIN 1.8 G/DL (3.4-5.0); ALBUMIN/GLOBULIN RATIO 0.5 (1.1-1.5); ALKALINE PHOSPHATASE 56 IU/L (46-116); ANION GAP 3 (8-16); ASPARTATE AMINO TRANSFERASE 41 U/L (10-37); BILIRUBIN,TOTAL 3.1 MG/DL (0.1-1.0); BLOOD UREA NITROGEN 4 MG/DL (7-18); BUN/CREATININE RATIO 3.6 (5.4-32.0); CALCIUM 6.3 MG/DL (8.5-10.1); CHLORIDE 92 MMOL/L (99-107); CREATININE 1.12 MG/DL (0.60-1.10); GLUCOSE 91 MG/DL (70-104); PHOSPHORUS 2.5 MG/DL (2.3-4.5); SODIUM 131 MMOL/L (135-145); TOTAL CARBON DIOXIDE 36.3 MMOL/L (24-32); TOTAL PROTEIN 5.5 G/DL (6.4-8.2); eGFR 67 ML/MIN
[2019-12-31 03:45] LABS: POTASSIUM 2.5 MMOL/L (3.5-5.1)
[2019-12-31 03:49] LABS: VANCOMYCIN,TROUGH 27.6 UG/ML (6.0-14.0)
[2019-12-31] MEDS: potassium Cl 20 mEq SR tablet PO PRN ×5 (04:18→19:08)
[2019-12-31] MEDS: metoprolol tartrate 50mg tablet PO SCH ×3 (08:00→19:08)
[2019-12-31] MEDS: piperacillin/tazo 3.375gm/50ml 50 ML IV SCH ×3 (08:00→23:16)
[2019-12-31] MEDS: loratadine 10mg tablet PO SCH (08:26)
[2019-12-31] MEDS: folic acid 1mg/0.2ml inj IV SCH (08:28)
[2019-12-31] MEDS: lactobacillus rhamnosus 10,000 MMU CELLS/CAPSULE PO SCH ×2 (08:28→19:08)
[2019-12-31] MEDS: pantoprazole 40 MG vial IV SCH (08:28)
[2019-12-31] MEDS: heparin, porcine 5000 units/ml vial SQ SCH ×3 (08:30→19:09)
[2019-12-31] MEDS: albuterol 2.5 MG/3 ML nebule NEB SCH ×2 (08:36→20:52)
[2019-12-31] MEDS: thiamine inj. 100 MG, MVI, adult No.4 with vit. K 10 ML in dextrose 5% water 500ml 500 ML IV SCH ×3 (08:40)
[2019-12-31] MEDS: K, MAG and/or Phos replacement - Verify level? MC SCH (08:41)
[2019-12-31] MEDS: levoFLOXACIN-Levaquin 500mg/D5 100 ML IV SCH (09:52)
--- NOTE | 2019-12-31 10:48 | NUR ---
PICC insertion Right Upper Arm (Basilic), 3CG confirmed location in distal SVC near cavoatrial junction. 55cm Length, 3cm Out, 44cm Arm Circ.
[2019-12-31] MEDS: vancomycin/NS 1 GM ADD-VANTAGE 250 ML IV SCH ×2 (11:50→18:57)
--- NOTE | 2019-12-31 12:15 | NUR ---
Report received from CHAPERONDeidre
--- NOTE | 2019-12-31 12:30 | NUR ---
Problems reprioritized. Patient report given, questions answered & plan of care reviewed with JEAN.
[2019-12-31] MEDS: normal saline 1000ml 1,000 ML IV SCH (13:16)
--- NOTE | 2019-12-31 18:00 | NUR ---
Problems reprioritized. Patient report given, questions answered & plan of care reviewed with JONH Canas.
--- NOTE | 2019-12-31 18:39 | NUR ---
Received report from primary care nurse Judi BORJA. Assumed patient care. Patient is awake and alert on 2LNC. In no apparent distress. Call light and items of frequent use within reach. Will continue to monitor for changes. Addendum: 12/31/19 at 1841 by Floresita Clay RN room air
[2019-12-31] MEDS: morphine 2 MG/ML inj. syringe IV PRN (19:09)
[2020-01-01 01:19] LABS: EOSINOPHILS # (AUTO) 0.3 X10'3 (0-0.9); HEMATOCRIT 30.2 % (42.0-52.0); LYMPHOCYTES # (AUTO) 1.2 X10'3 (1.1-4.8); MEAN CORPUSCULAR VOLUME 104.3 FL (78-98); MEAN PLATELET VOLUME 8.3 FL (7.4-10.4); MONOCYTES # (AUTO) 0.6 X10'3 (0-0.9); NEUTROPHILS # (AUTO) 2.2 X10'3 (1.8-7.7); NEUTROPHILS % (AUTO) 51.2 % (42-75); RED BLOOD COUNT 2.89 X10'6 (4.70-6.10); WHITE BLOOD COUNT 4.3 X10'3 (4.5-11.0)
[2020-01-01 01:21] LABS: BASOPHILS % (AUTO) 0.8 % (0-1); EOSINOPHILS % (AUTO) 6.3 % (0-6); HEMOGLOBIN 10.5 g/dl (14.0-17.9); LYMPHOCYTES % (AUTO) 28.8 % (21-51); MEAN CORPUSCULAR HEMOGLOBIN 36.1 PG (27.0-31.0); MEAN CORPUSCULAR HGB CONC 34.7 g/dL (33.0-36.5); MONOCYTES % (AUTO) 12.9 % (2-12); PLATELET COUNT 67 X10'3 (140-440)
[2020-01-01 01:29] LABS: ALANINE AMINOTRANSFERASE 9 U/L (12-78); ALBUMIN 1.8 G/DL (3.4-5.0); ALBUMIN/GLOBULIN RATIO 0.5 (1.1-1.5); ALKALINE PHOSPHATASE 65 IU/L (46-116); ANION GAP 2 (8-16); ASPARTATE AMINO TRANSFERASE 42 U/L (10-37); BILIRUBIN,TOTAL 2.4 MG/DL (0.1-1.0); BLOOD UREA NITROGEN 4 MG/DL (7-18); BUN/CREATININE RATIO 2.6 (5.4-32.0); CALCIUM 6.7 MG/DL (8.5-10.1); CHLORIDE 96 MMOL/L (99-107); CREATININE 1.55 MG/DL (0.60-1.10); GLUCOSE 97 MG/DL (70-104); MAGNESIUM 1.9 MG/DL (1.5-2.4); PHOSPHORUS 2.2 MG/DL (2.3-4.5); POTASSIUM 3.3 MMOL/L (3.5-5.1); SODIUM 132 MMOL/L (135-145); TOTAL CARBON DIOXIDE 33.8 MMOL/L (24-32); TOTAL PROTEIN 5.6 G/DL (6.4-8.2); eGFR 46 ML/MIN
[2020-01-01] MEDS: gabapentin 300mg capsule PO SCH ×3 (01:37→14:20)
[2020-01-01] MEDS: potassium Cl 20 mEq SR tablet PO PRN ×3 (01:37→17:20)
[2020-01-01] MEDS: HYDROcodone/acetaminophen 5mg/325mg tablet PO PRN ×4 (01:37→21:11)
[2020-01-01 02:00] VITALS: BP 125/59
[2020-01-01] MEDS: vancomycin/NS 1 GM ADD-VANTAGE 250 ML IV SCH ×2 (04:03→11:00)
[2020-01-01 06:00] VITALS: BP 140/74
--- NOTE | 2020-01-01 06:36 | NUR ---
Reported off to Shayna BORJA. Patient is resting with relaxed and unlabored respirations on room air. Call light and items of frequent use within reach.
--- NOTE | 2020-01-01 06:43 | NUR ---
Patient in room PCU 3009. I have received report from JONH Canas and had the opportunity to ask questions and assume patient care.
[2020-01-01] MEDS: K, MAG and/or Phos replacement - Verify level? MC SCH (08:00)
[2020-01-01] MEDS: heparin, porcine 5000 units/ml vial SQ SCH (08:00)
[2020-01-01] MEDS: albuterol 2.5 MG/3 ML nebule NEB SCH ×2 (08:38→19:43)
[2020-01-01] MEDS: thiamine inj. 100 MG, MVI, adult No.4 with vit. K 10 ML in dextrose 5% water 500ml 500 ML IV SCH ×3 (08:50)
[2020-01-01] MEDS: pantoprazole 40 MG vial IV SCH (08:54)
[2020-01-01] MEDS: levoFLOXACIN-Levaquin 500mg/D5 100 ML IV SCH (08:59)
[2020-01-01] MEDS: loratadine 10mg tablet PO SCH (09:07)
[2020-01-01] MEDS: lactobacillus rhamnosus 10,000 MMU CELLS/CAPSULE PO SCH ×2 (09:07→21:00)
[2020-01-01] MEDS: metoprolol tartrate 50mg tablet PO SCH ×2 (09:08→20:59)
[2020-01-01] MEDS: normal saline 1000ml 1,000 ML IV SCH (09:16)
[2020-01-01] MEDS: piperacillin/tazo 3.375gm/50ml 50 ML IV SCH ×2 (09:19→16:47)
[2020-01-01] MEDS ORDERED: VANCOMYCIN LEVEL IV ONE (10:30)
[2020-01-01 11:00] VITALS: BP 117/50
[2020-01-01] MEDS: morphine 2 MG/ML inj. syringe IV PRN (11:27)
--- NOTE | 2020-01-01 11:36 | NUR ---
[facility] 35.6. [address] [facility]
[2020-01-01] MEDS: folic acid 1mg/0.2ml inj IV SCH (14:21)
[2020-01-01 15:00] VITALS: BP 131/58
[2020-01-01 18:00] VITALS: BP 141/66
--- NOTE | 2020-01-01 18:19 | NUR ---
Patient in room PCU 3009. I have received report from Shayna BORJA and had the opportunity to ask questions and assume patient care.
[2020-01-01] MEDS ORDERED: morphine 2 MG/ML inj. syringe IV PRN (18:30)
--- NOTE | 2020-01-01 19:39 | NUR ---
Problems reprioritized. Patient report given, questions answered & plan of care reviewed with Walter George.
[2020-01-01 22:00] VITALS: BP 143/64
--- NOTE | 2020-01-01 22:04 | NUR ---
BED HAS BEEN DELIVERED Addendum: 01/01/20 at 2205 by Doris Schmidt RN Amended: Links added.
[2020-01-02 02:00] VITALS: BP 151/76
[2020-01-02] MEDS: normal saline 1000ml 1,000 ML IV SCH (05:16)
[2020-01-02 05:49] LABS: BASOPHILS % (AUTO) 1.3 % (0-1); EOSINOPHILS # (AUTO) 0.3 X10'3 (0-0.9); EOSINOPHILS % (AUTO) 7.1 % (0-6); HEMATOCRIT 31.6 % (42.0-52.0); HEMOGLOBIN 10.8 g/dl (14.0-17.9); LYMPHOCYTES # (AUTO) 1.1 X10'3 (1.1-4.8); LYMPHOCYTES % (AUTO) 28.4 % (21-51); MEAN CORPUSCULAR HEMOGLOBIN 35.7 PG (27.0-31.0); MEAN CORPUSCULAR HGB CONC 34.2 g/dL (33.0-36.5); MEAN CORPUSCULAR VOLUME 104.5 FL (78-98); MEAN PLATELET VOLUME 8.3 FL (7.4-10.4); MONOCYTES # (AUTO) 0.5 X10'3 (0-0.9); MONOCYTES % (AUTO) 13.9 % (2-12); NEUTROPHILS # (AUTO) 1.9 X10'3 (1.8-7.7); NEUTROPHILS % (AUTO) 49.3 % (42-75); PLATELET COUNT 62 X10'3 (140-440); RED BLOOD COUNT 3.03 X10'6 (4.70-6.10); RED CELL DISTRIBUTION WIDTH 15.6 % (11.5-14.5); WHITE BLOOD COUNT 3.8 X10'3 (4.5-11.0)
[2020-01-02 05:57] LABS: ALANINE AMINOTRANSFERASE 9 U/L (12-78); ALBUMIN 1.9 G/DL (3.4-5.0); ALBUMIN/GLOBULIN RATIO 0.5 (1.1-1.5); ALKALINE PHOSPHATASE 64 IU/L (46-116); ANION GAP 4 (8-16); ASPARTATE AMINO TRANSFERASE 45 U/L (10-37); BILIRUBIN,TOTAL 2.7 MG/DL (0.1-1.0); BLOOD UREA NITROGEN 5 MG/DL (7-18); BUN/CREATININE RATIO 2.7 (5.4-32.0); CHLORIDE 97 MMOL/L (99-107); CREATININE 1.82 MG/DL (0.60-1.10); GLUCOSE 87 MG/DL (70-104); MAGNESIUM 1.9 MG/DL (1.5-2.4); PHOSPHORUS 2.5 MG/DL (2.3-4.5); POTASSIUM 3.3 MMOL/L (3.5-5.1); SODIUM 132 MMOL/L (135-145); TOTAL CARBON DIOXIDE 31.5 MMOL/L (24-32); TOTAL PROTEIN 5.8 G/DL (6.4-8.2); eGFR 38 ML/MIN
[2020-01-02 06:00] VITALS: BP 141/51
--- NOTE | 2020-01-02 06:35 | NUR ---
Problems reprioritized. Patient report given, questions answered & plan of care reviewed with TYSON BORJA.
[2020-01-02] MEDS: albuterol 2.5 MG/3 ML nebule NEB SCH ×2 (07:03→20:23)
[2020-01-02] MEDS: pantoprazole 40 MG vial IV SCH (07:17)
[2020-01-02] MEDS: metoprolol tartrate 50mg tablet PO SCH ×2 (07:27→19:14)
[2020-01-02] MEDS: multivitamins, therapeutics tablet PO SCH (07:28)
[2020-01-02] MEDS: HYDROcodone/acetaminophen 5mg/325mg tablet PO PRN ×3 (07:28→19:15)
[2020-01-02] MEDS: folic acid 1mg tablet PO SCH (07:28)
[2020-01-02] MEDS: thiamine 100mg tablet PO SCH (07:29)
[2020-01-02] MEDS: lactobacillus rhamnosus 10,000 MMU CELLS/CAPSULE PO SCH ×2 (07:29→19:15)
[2020-01-02] MEDS: K, MAG and/or Phos replacement - Verify level? MC SCH (08:00)
[2020-01-02 11:00] VITALS: BP 106/60
[2020-01-02] MEDS ORDERED: VANCOMYCIN LEVEL IV ONE (12:18)
[2020-01-02] MEDS: potassium Cl 20 mEq SR tablet PO PRN ×2 (12:35→19:15)
[2020-01-02 15:00] VITALS: BP 130/55
[2020-01-02 18:00] VITALS: BP 127/84
--- NOTE | 2020-01-02 18:23 | NUR ---
Patient in room PCU 3009. I have received report from Gilma BORJA and had the opportunity to ask questions and assume patient care.
--- NOTE | 2020-01-02 19:04 | NUR ---
PAGER ID: [phone] MESSAGE: Sam White [phone]: Patient is on NS @50. Keeps moving arm and almost pulling out PICC. Oral intake is appropriate. Can we DC fluids? -Abbie BORJA [phone]
[2020-01-02 22:20] VITALS: BP 121/61
[2020-01-03] MEDS: potassium Cl 20 mEq SR tablet PO PRN ×4 (00:42→16:43)
--- NOTE | 2020-01-03 00:50 | NUR ---
Patient requesting pain shot. Brought in morphine 1mg, after wasting the other 1mg in the vial. At this time patient decided he just wanted a pain pill. I called pharmacy as the waste was no longer available in the [facility] and the pharmacist said to wasted under the stocked meds morphine. Wasted the remaining 1mg at this time for a total waste of 2mg.
[2020-01-03] MEDS: HYDROcodone/acetaminophen 5mg/325mg tablet PO PRN ×3 (00:53→08:45)
[2020-01-03 02:29] VITALS: BP 137/54
[2020-01-03 05:14] LABS: BASOPHILS % (AUTO) 0.8 % (0-1); EOSINOPHILS # (AUTO) 0.3 X10'3 (0-0.9); EOSINOPHILS % (AUTO) 6.6 % (0-6); LYMPHOCYTES # (AUTO) 0.9 X10'3 (1.1-4.8); MEAN CORPUSCULAR HGB CONC 34.5 g/dL (33.0-36.5); MEAN CORPUSCULAR VOLUME 104.5 FL (78-98); MEAN PLATELET VOLUME 8.5 FL (7.4-10.4); MONOCYTES # (AUTO) 0.6 X10'3 (0-0.9); MONOCYTES % (AUTO) 14.1 % (2-12); NEUTROPHILS # (AUTO) 2.3 X10'3 (1.8-7.7); NEUTROPHILS % (AUTO) 56.5 % (42-75); PLATELET COUNT 59 X10'3 (140-440); RED BLOOD COUNT 2.77 X10'6 (4.70-6.10); RED CELL DISTRIBUTION WIDTH 15.6 % (11.5-14.5)
[2020-01-03 05:32] LABS: ALANINE AMINOTRANSFERASE 13 U/L (12-78); ALBUMIN 1.9 G/DL (3.4-5.0); ALBUMIN/GLOBULIN RATIO 0.5 (1.1-1.5); ALKALINE PHOSPHATASE 73 IU/L (46-116); ANION GAP 3 (8-16); ASPARTATE AMINO TRANSFERASE 48 U/L (10-37); BILIRUBIN,TOTAL 2.2 MG/DL (0.1-1.0); BLOOD UREA NITROGEN 7 MG/DL (7-18); BUN/CREATININE RATIO 3.6 (5.4-32.0); CHLORIDE 98 MMOL/L (99-107); CREATININE 1.96 MG/DL (0.60-1.10); GLUCOSE 96 MG/DL (70-104); MAGNESIUM 1.8 MG/DL (1.5-2.4); PHOSPHORUS 2.5 MG/DL (2.3-4.5); POTASSIUM 3.3 MMOL/L (3.5-5.1); SODIUM 132 MMOL/L (135-145); TOTAL CARBON DIOXIDE 30.9 MMOL/L (24-32); TOTAL PROTEIN 5.7 G/DL (6.4-8.2); eGFR 35 ML/MIN
--- NOTE | 2020-01-03 05:46 | NUR ---
Student documentation: I have reviewed and agree with all interventions, assessments performed and documented by Linh VILLATORO. Student Medication Administration: For this medication-pass time frame, all medication were reviewed, dispensed, administered and documented per hospital policy by Linh VILLATORO.
--- NOTE | 2020-01-03 06:33 | NUR ---
Problems reprioritized. Patient report given, questions answered & plan of care reviewed with Dayan BORJA.
--- NOTE | 2020-01-03 06:33 | NUR ---
Problems reprioritized. Patient report given, questions answered & plan of care reviewed with Dayan BORJA.
--- NOTE | 2020-01-03 06:43 | NUR ---
Patient in room PCU 3009. I have received report from Abbie BORJA and had the opportunity to ask questions and assume patient care.
[2020-01-03 07:03] VITALS: BP 122/48
[2020-01-03] MEDS: lactobacillus rhamnosus 10,000 MMU CELLS/CAPSULE PO SCH ×2 (08:45→19:41)
[2020-01-03] MEDS: metoprolol tartrate 50mg tablet PO SCH ×2 (08:46→19:41)
[2020-01-03] MEDS: multivitamins, therapeutics tablet PO SCH (08:46)
[2020-01-03] MEDS: pantoprazole 40mg Tablet.DR PO SCH (08:46)
[2020-01-03] MEDS: thiamine 100mg tablet PO SCH (08:46)
[2020-01-03] MEDS: folic acid 1mg tablet PO SCH (08:46)
[2020-01-03] MEDS: K, MAG and/or Phos replacement - Verify level? MC SCH (08:47)
[2020-01-03] MEDS: albuterol 2.5 MG/3 ML nebule NEB SCH ×2 (08:57→20:41)
[2020-01-03] MEDS ORDERED: VANCOMYCIN LEVEL IV ONE (10:30)
[2020-01-03 11:00] VITALS: BP 141/65
--- NOTE | 2020-01-03 11:47 | NUR ---
PAGER ID: [phone] MESSAGE: Patient Cindy [phone]. Can I get Cobb 10 for this patient? Cobb 5 aren't enough and he refuses morphine. Thanks Dayan UGALDE [phone]
[2020-01-03] MEDS: HYDROcodone/acetaminophen 10/325mg tab PO PRN ×3 (12:49→22:47)
[2020-01-03] MEDS: VANCOMYCIN 750MG IV in NS 250 ML IV SCH ×2 (14:20→20:41)
[2020-01-03 15:00] VITALS: BP 132/58
--- NOTE | 2020-01-03 16:43 | NUR ---
Initial: patient presented to ED with c/o weakness for a few months, unable to walk when arrived, uses wheelchair. History of COPD, HTN, CHF, EtOH, MCV currently elevated, pt is receiving thiamine, folic acid, and MVM. Per MD progress note patient has chronic lymphedema with open wounds on lower extremities, WOC following. Has pressure ulcer to left thigh, right LE venous ulcer. Great appetite, eating 100% for two days average PO Intake 75-100%. Patient met at bedside, declines having additional protein provided, reports feeling too full and does not want additional food. Will continue to follow. Recommend: 1. continue regular diet 2. bowel care as needed 3. continue MVM, thiamine, folic acid in view of EtOH history 4. weight per rx Addendum: 01/03/20 at [address] Amended: Links added.
[2020-01-03 18:00] VITALS: BP 155/69
--- NOTE | 2020-01-03 18:04 | NUR ---
Problems reprioritized. Patient report given, questions answered & plan of care reviewed with JONH Leiva.
--- NOTE | 2020-01-03 18:36 | NUR ---
Patient in room PCU 3009. I have received report from Dayan BORJA and had the opportunity to ask questions and assume patient care.
--- NOTE | 2020-01-03 20:43 | NUR ---
PAGER ID: [phone] MESSAGE: Sam White [phone]: patient reporting gas. -Abbie BORJA [phone]
[2020-01-03 22:00] VITALS: BP 146/56
[2020-01-04] VITALS (7 sets, daily range): BP systolic 124–157; BP diastolic 52–70
[2020-01-04] MEDS: HYDROcodone/acetaminophen 10/325mg tab PO PRN ×4 (03:04→19:43)
[2020-01-04] MEDS: VANCOMYCIN 750MG IV in NS 250 ML IV SCH ×2 (04:29→13:58)
[2020-01-04 05:25] LABS: BASOPHILS % (AUTO) 0.9 % (0-1); EOSINOPHILS # (AUTO) 0.3 X10'3 (0-0.9); EOSINOPHILS % (AUTO) 6.2 % (0-6); HEMATOCRIT 30.4 % (42.0-52.0); HEMOGLOBIN 10.6 g/dl (14.0-17.9); LYMPHOCYTES # (AUTO) 0.8 X10'3 (1.1-4.8); LYMPHOCYTES % (AUTO) 15.4 % (21-51); MEAN CORPUSCULAR HEMOGLOBIN 36.6 PG (27.0-31.0); MEAN CORPUSCULAR HGB CONC 34.7 g/dL (33.0-36.5); MEAN CORPUSCULAR VOLUME 105.2 FL (78-98); MEAN PLATELET VOLUME 8.7 FL (7.4-10.4); MONOCYTES # (AUTO) 0.7 X10'3 (0-0.9); NEUTROPHILS # (AUTO) 3.2 X10'3 (1.8-7.7); NEUTROPHILS % (AUTO) 64.5 % (42-75); PLATELET COUNT 62 X10'3 (140-440); RED BLOOD COUNT 2.89 X10'6 (4.70-6.10); RED CELL DISTRIBUTION WIDTH 15.7 % (11.5-14.5)
[2020-01-04 05:29] LABS: ALANINE AMINOTRANSFERASE 10 U/L (12-78); ALBUMIN 1.8 G/DL (3.4-5.0); ALBUMIN/GLOBULIN RATIO 0.5 (1.1-1.5); ALKALINE PHOSPHATASE 74 IU/L (46-116); ANION GAP 5 (8-16); ASPARTATE AMINO TRANSFERASE 46 U/L (10-37); BILIRUBIN,TOTAL 2.4 MG/DL (0.1-1.0); BLOOD UREA NITROGEN 7 MG/DL (7-18); BUN/CREATININE RATIO 3.6 (5.4-32.0); CALCIUM 7.4 MG/DL (8.5-10.1); CHLORIDE 100 MMOL/L (99-107); CREATININE 1.95 MG/DL (0.60-1.10); GLUCOSE 100 MG/DL (70-104); MAGNESIUM 1.8 MG/DL (1.5-2.4); POTASSIUM 3.6 MMOL/L (3.5-5.1); SODIUM 133 MMOL/L (135-145); TOTAL CARBON DIOXIDE 28.4 MMOL/L (24-32); TOTAL PROTEIN 5.8 G/DL (6.4-8.2); eGFR 36 ML/MIN
--- NOTE | 2020-01-04 06:04 | NUR ---
Problems reprioritized. Patient report given, questions answered & plan of care reviewed with Lashaun BORJA.
--- NOTE | 2020-01-04 06:16 | NUR ---
Patient in room PCU 3009. I have received report from Abbie BORJA and Arlene Student Nurse and had the opportunity to ask questions and assume patient care.
[2020-01-04] MEDS: K, MAG and/or Phos replacement - Verify level? MC SCH (07:15)
[2020-01-04] MEDS: folic acid 1mg tablet PO SCH (07:18)
[2020-01-04] MEDS: lactobacillus rhamnosus 10,000 MMU CELLS/CAPSULE PO SCH ×2 (07:18→19:41)
[2020-01-04] MEDS: multivitamins, therapeutics tablet PO SCH (07:18)
[2020-01-04] MEDS: metoprolol tartrate 50mg tablet PO SCH ×2 (07:18→19:42)
[2020-01-04] MEDS: thiamine 100mg tablet PO SCH (07:18)
[2020-01-04] MEDS: pantoprazole 40mg Tablet.DR PO SCH (07:19)
[2020-01-04] MEDS: albuterol 2.5 MG/3 ML nebule NEB SCH ×2 (09:00→20:15)
--- NOTE | 2020-01-04 09:10 | NUR ---
Morning SVN not given-Pt. refused-no SOB observed SPO2 96% R/A
[2020-01-04] MEDS ORDERED: VANCOMYCIN LEVEL IV ONE (12:30)
--- NOTE | 2020-01-04 14:38 | NUR ---
Sent a page to Dr Tatiana forbes PAGER ID: [phone] MESSAGE: Lashaun BORJA [phone], critical vanco trough 25.1, i have already hung krista, do you want me to stop it? thanks Addendum: 01/04/20 at 1443 by Yaquelin Gastelum RN lance schmitz
--- NOTE | 2020-01-04 18:02 | NUR ---
Problems reprioritized. Patient report given, questions answered & plan of care reviewed with Abbie BORJA.
[2020-01-05] MEDS: HYDROcodone/acetaminophen 10/325mg tab PO PRN ×3 (01:00→11:34)
[2020-01-05 02:00] VITALS: BP 122/54
[2020-01-05 05:09] LABS: BASOPHILS # (AUTO) 0.1 X10'3 (0-0.2); BASOPHILS % (AUTO) 1.3 % (0-1); EOSINOPHILS # (AUTO) 0.3 X10'3 (0-0.9); HEMATOCRIT 31.4 % (42.0-52.0); HEMOGLOBIN 10.8 g/dl (14.0-17.9); LYMPHOCYTES # (AUTO) 1.3 X10'3 (1.1-4.8); LYMPHOCYTES % (AUTO) 24.5 % (21-51); MEAN CORPUSCULAR HEMOGLOBIN 36.1 PG (27.0-31.0); MEAN CORPUSCULAR HGB CONC 34.5 g/dL (33.0-36.5); MEAN CORPUSCULAR VOLUME 104.9 FL (78-98); MEAN PLATELET VOLUME 8.3 FL (7.4-10.4); MONOCYTES # (AUTO) 0.7 X10'3 (0-0.9); MONOCYTES % (AUTO) 12.2 % (2-12); PLATELET COUNT 71 X10'3 (140-440); RED BLOOD COUNT 2.99 X10'6 (4.70-6.10); RED CELL DISTRIBUTION WIDTH 15.4 % (11.5-14.5); WHITE BLOOD COUNT 5.4 X10'3 (4.5-11.0)
[2020-01-05 05:29] LABS: ALANINE AMINOTRANSFERASE 10 U/L (12-78); ALBUMIN/GLOBULIN RATIO 0.5 (1.1-1.5); ALKALINE PHOSPHATASE 65 IU/L (46-116); ANION GAP 5 (8-16); ASPARTATE AMINO TRANSFERASE 45 U/L (10-37); BILIRUBIN,TOTAL 2.5 MG/DL (0.1-1.0); BLOOD UREA NITROGEN 9 MG/DL (7-18); BUN/CREATININE RATIO 4.5 (5.4-32.0); CHLORIDE 100 MMOL/L (99-107); CREATININE 1.98 MG/DL (0.60-1.10); GLUCOSE 89 MG/DL (70-104); MAGNESIUM 1.9 MG/DL (1.5-2.4); PHOSPHORUS 3.2 MG/DL (2.3-4.5); POTASSIUM 3.5 MMOL/L (3.5-5.1); SODIUM 133 MMOL/L (135-145); TOTAL CARBON DIOXIDE 27.6 MMOL/L (24-32); TOTAL PROTEIN 6.1 G/DL (6.4-8.2); eGFR 35 ML/MIN
[2020-01-05 06:00] VITALS: BP 126/53
--- NOTE | 2020-01-05 06:10 | NUR ---
Problems reprioritized. Patient report given, questions answered & plan of care reviewed with Lashaun BORJA.
--- NOTE | 2020-01-05 06:20 | NUR ---
Patient in room PCU 3009. I have received report from Abbie BORJA and had the opportunity to ask questions and assume patient care.
[2020-01-05] MEDS: albuterol 2.5 MG/3 ML nebule NEB SCH (07:13)
[2020-01-05] MEDS: lactobacillus rhamnosus 10,000 MMU CELLS/CAPSULE PO SCH (07:26)
[2020-01-05] MEDS: metoprolol tartrate 50mg tablet PO SCH (07:27)
[2020-01-05] MEDS: thiamine 100mg tablet PO SCH (07:27)
[2020-01-05] MEDS: folic acid 1mg tablet PO SCH (07:27)
[2020-01-05] MEDS: multivitamins, therapeutics tablet PO SCH (07:27)
[2020-01-05] MEDS: pantoprazole 40mg Tablet.DR PO SCH (07:27)
[2020-01-05] MEDS: K, MAG and/or Phos replacement - Verify level? MC SCH (07:31)
[2020-01-05 11:00] VITALS: BP 119/60
[2020-01-05] MEDS ORDERED: VANCOMYCIN LEVEL IV ONE (12:30)
--- NOTE | 2020-01-05 13:54 | NUR ---
Stable for transfer per MD orders, patient aware of transfer. Problems reprioritized. Patient report given, questions answered & plan [facility] All belongings collected for patient, home medications collected to be sent with patient, wound care photos taken. Tele monitor discontinued, pt to be sent with [facility] PICC.
[2020-01-05 15:00] VITALS: BP 151/80
[2020-01-05] MEDS ORDERED: VANCOMYCIN LEVEL IV STA (16:16)
--- NOTE | 2020-01-05 17:17 | NUR ---
[facility]
== END 2020-01-05 17:27 | DRG 280 ==
LOC: ER 18:56 → ED HOLD 21:16 → ICU 2S 23:58 → PCU 3S 12-31 13:18
PROVIDERS: ADMIT Internal Medicine Critical Care Medicine; ATTEND Internal Medicine Critical Care Medicine
PROC: 05HY33Z Insertion of Infusion Device into Upper Vein, Percutaneous Approach (ICD-10-PCS; principal; 2019-12-31)
DX: K70.9 Alcoholic liver disease, unspecified (principal); N17.9 Acute kidney failure, unspecified; E83.39 Other disorders of phosphorus metabolism; E83.51 Hypocalcemia; E86.0 Dehydration; E87.1 Hypo-osmolality and hyponatremia; E87.2 Acidosis; E87.6 Hypokalemia; F17.210 Nicotine dependence, cigarettes, uncomplicated; I50.9 Heart failure, unspecified; J43.9 Emphysema, unspecified; D69.6 Thrombocytopenia, unspecified; E66.01 Morbid (severe) obesity due to excess calories; Z68.42 Body mass index [BMI] 45.0-49.9, adult
CPT/HCPCS: 36415; 36573; 71045; 76937; 80053; 80202; 80305; 81001; 82140; 82948; 83036; 83605; 83735; 83880; 84100; 84132; 84145; 84484; 85025; 85610; 87040; 87077; 87081; 87088; 87186; 93005; 93970; 94640; 94760; 97110; 97116; 97161; 97530; 97535; 99291; C9113; G0378; J1644; J1815; J1956; J2270; J2543; J3370; J3411; J3475; J3480; J3490; J7030; J7050; J7060

== ENCOUNTER 2020-03-17 11:39 | Outpatient (CLI) | payer MEDICAID ==
[~2020-03-17 11:39] MED LIST changes: +GABA300C PO; -HYDR-3686 PO; +HYDR-4353 PO; -LIDOcaine 1% W/epiNEPHrine 1:200,000 10ml vial ONE; +LORA10TA7 PO; -METO1TAB25 PO; +METO50TA17 PO; -NITR0.4T51 SL; +POTA8CAP20 PO
[2020-03-17] MEDS ORDERED: LIDOcaine 2% 5ml jelly ONE (12:05)
== END 2020-03-17 23:59 | disposition home or self-care (01) ==
LOC: WOUND CARE 11:39 → EDSTATUS 11:40 → WOUND CARE 23:59
PROVIDERS: ATTEND Nurse Practitioner
DX: E11.621 Type 2 diabetes mellitus with foot ulcer (principal); L97.522 Non-pressure chronic ulcer of other part of left foot with fat layer exposed; E11.622 Type 2 diabetes mellitus with other skin ulcer; I83.018 Varicose veins of right lower extremity with ulcer other part of lower leg; L97.818 Non-pressure chronic ulcer of other part of right lower leg with other specified severity; E11.610 Type 2 diabetes mellitus with diabetic neuropathic arthropathy; E11.42 Type 2 diabetes mellitus with diabetic polyneuropathy; E11.69 Type 2 diabetes mellitus with other specified complication; M86.572 Other chronic hematogenous osteomyelitis, left ankle and foot; J43.9 Emphysema, unspecified; B95.62 Methicillin resistant Staphylococcus aureus infection as the cause of diseases classified elsewhere; I25.2 Old myocardial infarction; K21.9 Gastro-esophageal reflux disease without esophagitis; J45.909 Unspecified asthma, uncomplicated; I11.0 Hypertensive heart disease with heart failure; I50.9 Heart failure, unspecified; M19.90 Unspecified osteoarthritis, unspecified site; I87.2 Venous insufficiency (chronic) (peripheral); E78.5 Hyperlipidemia, unspecified; Q82.0 Hereditary lymphedema; F10.10 Alcohol abuse, uncomplicated; F17.200 Nicotine dependence, unspecified, uncomplicated; Z79.899 Other long term (current) drug therapy
CPT/HCPCS: 11042

== ENCOUNTER 2020-03-22 10:26 | Outpatient (CLI) | payer MEDICAID ==
[2020-03-22] MEDS ORDERED: LIDOcaine 2% 5ml jelly ONE (10:49)
== END 2020-03-22 23:59 | disposition home or self-care (01) ==
LOC: WOUND CARE 10:26
PROVIDERS: ATTEND Nurse Practitioner
DX: E11.621 Type 2 diabetes mellitus with foot ulcer (principal); L97.522 Non-pressure chronic ulcer of other part of left foot with fat layer exposed; E11.622 Type 2 diabetes mellitus with other skin ulcer; I83.018 Varicose veins of right lower extremity with ulcer other part of lower leg; L97.811 Non-pressure chronic ulcer of other part of right lower leg limited to breakdown of skin; E11.610 Type 2 diabetes mellitus with diabetic neuropathic arthropathy; E11.42 Type 2 diabetes mellitus with diabetic polyneuropathy; E11.69 Type 2 diabetes mellitus with other specified complication; M86.572 Other chronic hematogenous osteomyelitis, left ankle and foot; J43.9 Emphysema, unspecified; B95.62 Methicillin resistant Staphylococcus aureus infection as the cause of diseases classified elsewhere; I25.2 Old myocardial infarction; K21.9 Gastro-esophageal reflux disease without esophagitis; J45.909 Unspecified asthma, uncomplicated; I11.0 Hypertensive heart disease with heart failure; I50.9 Heart failure, unspecified; M19.90 Unspecified osteoarthritis, unspecified site; I87.2 Venous insufficiency (chronic) (peripheral); E78.5 Hyperlipidemia, unspecified; Q82.0 Hereditary lymphedema; F10.10 Alcohol abuse, uncomplicated; F17.200 Nicotine dependence, unspecified, uncomplicated; Z79.899 Other long term (current) drug therapy
CPT/HCPCS: 11042

== ENCOUNTER 2020-04-18 10:13 | Outpatient (CLI) | payer MEDICAID | END 2020-04-18 23:59 | disposition home or self-care (01) | LOC: WOUND CARE 10:13 | PROVIDERS: ATTEND Nurse Practitioner | DX: E11.621 Type 2 diabetes mellitus with foot ulcer (principal); L97.522 Non-pressure chronic ulcer of other part of left foot with fat layer exposed; E11.622 Type 2 diabetes mellitus with other skin ulcer; I83.018 Varicose veins of right lower extremity with ulcer other part of lower leg; L97.811 Non-pressure chronic ulcer of other part of right lower leg limited to breakdown of skin; E11.610 Type 2 diabetes mellitus with diabetic neuropathic arthropathy; E11.42 Type 2 diabetes mellitus with diabetic polyneuropathy; E11.69 Type 2 diabetes mellitus with other specified complication; M86.572 Other chronic hematogenous osteomyelitis, left ankle and foot; J43.9 Emphysema, unspecified; B95.62 Methicillin resistant Staphylococcus aureus infection as the cause of diseases classified elsewhere; I25.2 Old myocardial infarction; K21.9 Gastro-esophageal reflux disease without esophagitis; J45.909 Unspecified asthma, uncomplicated; I11.0 Hypertensive heart disease with heart failure; I50.9 Heart failure, unspecified; M19.90 Unspecified osteoarthritis, unspecified site; I87.2 Venous insufficiency (chronic) (peripheral); E78.5 Hyperlipidemia, unspecified; Q82.0 Hereditary lymphedema; F10.10 Alcohol abuse, uncomplicated; F17.200 Nicotine dependence, unspecified, uncomplicated; Z79.899 Other long term (current) drug therapy | CPT/HCPCS: G0463 ==

== ENCOUNTER → 2020-04-26 | Outpatient (CLI) | payer MEDICAID ==
[~2020-04-26] MED LIST changes: +LIDOcaine 2% 5ml jelly ONE
== END | disposition home or self-care (01) ==
LOC: WOUND CARE 10:17
PROVIDERS: ATTEND Nurse Practitioner Family
DX: E11.621 Type 2 diabetes mellitus with foot ulcer (principal); L97.522 Non-pressure chronic ulcer of other part of left foot with fat layer exposed; E11.622 Type 2 diabetes mellitus with other skin ulcer; I83.018 Varicose veins of right lower extremity with ulcer other part of lower leg; L97.811 Non-pressure chronic ulcer of other part of right lower leg limited to breakdown of skin; E11.610 Type 2 diabetes mellitus with diabetic neuropathic arthropathy; E11.42 Type 2 diabetes mellitus with diabetic polyneuropathy; E11.69 Type 2 diabetes mellitus with other specified complication; M86.572 Other chronic hematogenous osteomyelitis, left ankle and foot; J43.9 Emphysema, unspecified; B95.62 Methicillin resistant Staphylococcus aureus infection as the cause of diseases classified elsewhere; I25.2 Old myocardial infarction; K21.9 Gastro-esophageal reflux disease without esophagitis; J45.909 Unspecified asthma, uncomplicated; I11.0 Hypertensive heart disease with heart failure; I50.9 Heart failure, unspecified; M19.90 Unspecified osteoarthritis, unspecified site; I87.2 Venous insufficiency (chronic) (peripheral); E78.5 Hyperlipidemia, unspecified; Q82.0 Hereditary lymphedema; F10.10 Alcohol abuse, uncomplicated; F17.200 Nicotine dependence, unspecified, uncomplicated; Z79.899 Other long term (current) drug therapy
CPT/HCPCS: 97597

== ENCOUNTER 2020-05-03 10:32 | Outpatient (CLI) | payer MEDICAID ==
[~2020-05-03 10:32] MED LIST changes: -LIDOcaine 2% 5ml jelly ONE
[2020-05-03] MEDS ORDERED: LIDOcaine 2% 5ml jelly ONE (10:47)
== END 2020-05-03 23:59 | disposition home or self-care (01) ==
LOC: WOUND CARE 10:32
PROVIDERS: ATTEND Nurse Practitioner
DX: E11.621 Type 2 diabetes mellitus with foot ulcer (principal); L97.522 Non-pressure chronic ulcer of other part of left foot with fat layer exposed; E11.622 Type 2 diabetes mellitus with other skin ulcer; I83.018 Varicose veins of right lower extremity with ulcer other part of lower leg; L97.811 Non-pressure chronic ulcer of other part of right lower leg limited to breakdown of skin; E11.610 Type 2 diabetes mellitus with diabetic neuropathic arthropathy; E11.42 Type 2 diabetes mellitus with diabetic polyneuropathy; E11.69 Type 2 diabetes mellitus with other specified complication; M86.572 Other chronic hematogenous osteomyelitis, left ankle and foot; J43.9 Emphysema, unspecified; B95.62 Methicillin resistant Staphylococcus aureus infection as the cause of diseases classified elsewhere; I25.2 Old myocardial infarction; K21.9 Gastro-esophageal reflux disease without esophagitis; J45.909 Unspecified asthma, uncomplicated; I11.0 Hypertensive heart disease with heart failure; I50.9 Heart failure, unspecified; M19.90 Unspecified osteoarthritis, unspecified site; I87.2 Venous insufficiency (chronic) (peripheral); E78.5 Hyperlipidemia, unspecified; Q82.0 Hereditary lymphedema; F10.10 Alcohol abuse, uncomplicated; F17.200 Nicotine dependence, unspecified, uncomplicated; Z79.899 Other long term (current) drug therapy
CPT/HCPCS: 11042

== ENCOUNTER 2020-11-22 18:37 | Inpatient (IN) | payer MEDICAID ==
[~2020-11-22] VITALS: Ht 188 cm; Wt 131.8 kg
[2020-11-22 20:49] LABS: BASOPHILS % (AUTO) 0.3 % (0-1); EOSINOPHILS # (AUTO) 0.3 X10'3 (0-0.9); EOSINOPHILS % (AUTO) 4.7 % (0-6); HEMATOCRIT 36.2 % (42.0-52.0); HEMOGLOBIN 12.6 g/dl (14.0-17.9); LYMPHOCYTES # (AUTO) 0.7 X10'3 (1.1-4.8); LYMPHOCYTES % (AUTO) 10.4 % (21-51); MEAN CORPUSCULAR HEMOGLOBIN 34.8 PG (27.0-31.0); MEAN CORPUSCULAR HGB CONC 34.7 g/dL (33.0-36.5); MEAN CORPUSCULAR VOLUME 100.1 FL (78-98); MEAN PLATELET VOLUME 7.9 FL (7.4-10.4); MONOCYTES # (AUTO) 0.5 X10'3 (0-0.9); MONOCYTES % (AUTO) 8.1 % (2-12); NEUTROPHILS # (AUTO) 4.9 X10'3 (1.8-7.7); NEUTROPHILS % (AUTO) 76.5 % (42-75); PLATELET COUNT 87 X10'3 (140-440); RED BLOOD COUNT 3.61 X10'6 (4.70-6.10); RED CELL DISTRIBUTION WIDTH 15.3 % (11.5-14.5); WHITE BLOOD COUNT 6.4 X10'3 (4.5-11.0)
[2020-11-22 21:15] LABS: ALANINE AMINOTRANSFERASE 16 U/L (12-78); ALBUMIN 2.8 G/DL (3.4-5.0); ALBUMIN/GLOBULIN RATIO 0.5 (1.1-1.5); ALKALINE PHOSPHATASE 90 IU/L (46-116); ANION GAP 6 (8-16); ASPARTATE AMINO TRANSFERASE 54 U/L (10-37); BLOOD UREA NITROGEN 6 MG/DL (7-18); BUN/CREATININE RATIO 5.6 (5.4-32.0); CALCIUM 8.1 MG/DL (8.5-10.1); CHLORIDE 96 MMOL/L (99-107); CREATININE 1.08 MG/DL (0.60-1.10); GLUCOSE 124 MG/DL (70-104); SODIUM 134 MMOL/L (135-145); TOTAL CARBON DIOXIDE 32.1 MMOL/L (24-32); TOTAL PROTEIN 8.1 G/DL (6.4-8.2); eGFR 70 ML/MIN
[2020-11-22 21:19] LABS: POTASSIUM 2.7 MMOL/L (3.5-5.1)
[2020-11-22] MEDS ORDERED: potassium Cl 20 mEq SR tablet PO STA (21:47)
[2020-11-22] MEDS ORDERED: ondansetron 4mg rapidly disintigrating tab PO ONE (21:50)
[2020-11-22] MEDS ORDERED: normal saline 1000ml 1,000 ML IV ONE (21:50)
--- NOTE | 2020-11-22 22:48 | NUR ---
Note undone in EDM - 11/22/20 at 2250 by DIAMOND Pt brought to 3 in ED with c/o dizziness. Received report from JONH Montes. After assessing pt, charting was being done at bedside. Pt complaining about his anxiety. Pt complaining about his IV. Pt complaining about h
--- NOTE | 2020-11-22 22:50 | NUR ---
Pt brought to Rm 3 on stretcher with c/o dizziness. Pt complaining about his anxiety, leg pain, difficulty breathing, and his IV. Pt continuously complaing about anything and everything during my time in the room charting assessment. Pt RR 20. SaO2 97%.
[2020-11-22 22:51] LABS: CLARITY,URINE CLEAR (Clear); COLOR,URINE YELLOW (Yellow); GLUCOSE, URINE NEGATIVE (Neg); KETONES,URINE NEGATIVE (Neg); LEUKOCYTE ESTERASE ,URINE SMALL (Neg); NITRITES, URINE NEGATIVE (Neg); OCCULT BLOOD,URINE LARGE (Neg); PROTEIN,URINE NEGATIVE (Neg); UA COLLECTION TYPE VOIDED
[2020-11-22 23:04] LABS: BACTERIA,URINE NONE SEEN /HPF (Neg); SQUAMOUS EPITHELIAL CELL,UR NONE SEEN /LPF (FEW)
[2020-11-22 23:14] LABS: ETHANOL 0.015 GM/DL (0.0-0.010); MAGNESIUM 1.4 MG/DL (1.5-2.4)
[2020-11-22] MEDS ORDERED: magnesium oxide 400mg tablet PO ONE (23:20)
[2020-11-22] MEDS ORDERED: CefTRIAXone/D5W-Rocephin 1gm 50 ML IV ONE (23:20)
[2020-11-22] MEDS ORDERED: magnesium 2GM in 50ml NS 50 ML IV ONE (23:20)
[2020-11-22] MEDS ORDERED: potassium Cl 10 mEq/100mL bag IV ONE (23:20)
[2020-11-22] MEDS ORDERED: potassium Cl 20 mEq SR tablet PO ONE (23:20)
[2020-11-22] MEDS ORDERED: chlordiazePOXIDE 25mg capsule PO ONE (23:40)
[2020-11-22] MEDS ORDERED: thiamine 100mg tablet PO ONE (23:40)
[2020-11-22] MEDS ORDERED: folic acid 1mg tablet PO ONE (23:40)
[2020-11-22] MEDS ORDERED: albuterol 2.5 MG/3 ML nebule NEB ONE (23:45)
[2020-11-23 00:08] LABS: URINE AMPHETAMINE SCREEN NEGATIVE (Neg); URINE BARBITUATE SCREEN NEGATIVE (Neg); URINE BENZODIAZEPINES SCREEN NEGATIVE (Neg); URINE CANNABINOID SCREEN NEGATIVE (Neg); URINE COCAINE SCREEN NEGATIVE (Neg); URINE METHADONE SCREEN NEGATIVE (Neg); URINE OPIATE SCREEN NEGATIVE (Neg); URINE PHENCYCLIDINE SCREEN NEGATIVE (Neg)
[2020-11-23] MEDS ORDERED: ondansetron/PF 4mg/2ml inj IV ONE (00:20)
[2020-11-23] MEDS ORDERED: ALBUTEROL (00:36)
[2020-11-23] MEDS ORDERED: FURO40TA4 PO (00:36)
[2020-11-23] MEDS ORDERED: PREG50CA PO (00:36)
[2020-11-23] MEDS ORDERED: POTASSIUM (00:36)
[2020-11-23] MEDS ORDERED: OXYC10TA47 PO (00:36)
[2020-11-23] MEDS ORDERED: diphenhydrAMINE 25mg capsule PO PRN (01:00)
[2020-11-23] MEDS ORDERED: potassium Cl 40MEQ/1/2NS 520ml 520 ML IV PRN ×2 (01:00)
[2020-11-23] MEDS ORDERED: acetaminophen 650mg rectal suppository RC PRN (01:00)
[2020-11-23] MEDS ORDERED: loperamide 2mg capsule PO PRN (01:00)
[2020-11-23] MEDS ORDERED: magnesium 2GM in 50ml NS 50 ML IV PRN (01:00)
[2020-11-23] MEDS ORDERED: acetaminophen 325mg tablet PO PRN ×2 (01:00)
[2020-11-23] MEDS ORDERED: magnesium hydroxide 30ml (MOM) UD suspension PO PRN (01:00)
[2020-11-23] MEDS ORDERED: magnesium 4gm in 100ml NS 100 ML IV PRN (01:00)
[2020-11-23] MEDS ORDERED: diphenhydrAMINE 50 mg/ml inj IV PRN (01:00)
[2020-11-23] MEDS ORDERED: cloNIDine 0.1 MG/24 HOUR patch (7 day patch) TD SCH (01:00)
[2020-11-23] MEDS ORDERED: haloperidol 5mg tablet PO PRN (01:00)
[2020-11-23] MEDS ORDERED: potassium Cl 20 mEq SR tablet PO PRN (01:00)
[2020-11-23] MEDS ORDERED: dextrose 50%-water 50ml dispensing syringe IV PRN (01:00)
[2020-11-23] MEDS ORDERED: haloperidol lactate 5mg/ml inj IM PRN (01:00)
[2020-11-23] MEDS ORDERED: mag hydrox/Alum hydrox/simeth 30ml oral suspension PO PRN (01:00)
[2020-11-23] MEDS ORDERED: HYDROmorphone inj. 0.5 MG/0.5 ML DISP.SYRIN IV PRN (01:00)
[2020-11-23] MEDS ORDERED: ondansetron/PF 4mg/2ml inj IV PRN (01:00)
[2020-11-23] MEDS ORDERED: bisacodyl 10mg suppository rectal RC PRN (01:00)
[2020-11-23] MEDS ORDERED: morphine 2 MG/ML inj. syringe IV PRN (01:00)
[2020-11-23] MEDS ORDERED: magnesium Cl slow-release 64mg tablet PO PRN (01:00)
[2020-11-23] MEDS ORDERED: HYDROcodone/acetaminophen 5mg/325mg tablet PO PRN (01:00)
[2020-11-23] MEDS ORDERED: cyclobenzaprine 10mg tablet PO PRN (01:00)
[2020-11-23] MEDS: normal saline 1000ml 1,000 ML IV SCH (01:38)
[2020-11-23 01:47] LABS: HEMOGLOBIN A1C 5.7 % (4.5-6.2)
[2020-11-23] MEDS: VANCOmycin 1250MG/NS 250ml Bag 250 ML IV SCH ×2 (02:00→15:52)
[2020-11-23 02:11] LABS: PARTIAL THROMBOPLASTIN TIME 31 SECONDS (22-32)
[2020-11-23 02:28] LABS: LIPASE 53 U/L (73-393); MAGNESIUM 1.9 MG/DL (1.5-2.4); PHOSPHORUS 2.6 MG/DL (2.3-4.5)
[2020-11-23] MEDS ORDERED: piperacillin/tazo 4.5gm/100ml 100 ML IV SCH (08:00)
[2020-11-23] MEDS ORDERED: folic acid inj. 2 MG, thiamine inj. 100 MG, MVI, adult No.4 with vit. K 10 ML in dextro... IV SCH ×4 (08:00)
[2020-11-23] MEDS: nicotine 21mg patch - 24 hr TD SCH (08:00)
[2020-11-23] MEDS: K and/or MAG REPLACEMENT MC SCH (08:00)
[2020-11-23] MEDS: folic acid 1mg tablet PO SCH (09:03)
[2020-11-23] MEDS: thiamine 100mg tablet PO SCH (09:03)
[2020-11-23] MEDS: multivitamins, therapeutics tablet PO SCH (09:03)
[2020-11-23] MEDS: pantoprazole 40mg Tablet.DR PO SCH (09:07)
[2020-11-23] MEDS: docusate sod 100mg capsule PO SCH ×2 (09:07→19:59)
[2020-11-23] MEDS: HYDROcodone/acetaminophen 10/325mg tab PO PRN ×3 (09:14→21:52)
[2020-11-23] MEDS ORDERED: METO5TAB98 PO (12:38)
[2020-11-23] MEDS ORDERED: LORA10TA7 PO (12:38)
[2020-11-23] MEDS: LORazepam 2 mg/ml vial IV PRN ×2 (14:54→22:11)
--- NOTE | 2020-11-23 15:14 | NUR ---
Pharmacy called for Steven. Pt changed and hospital bed provided, daughter at bedside and calm. Pt received pain medication and Charge Nurse Candelaria at bedside, discussing with family. Pt cooperative, continue monitoring closely
--- NOTE | 2020-11-23 16:02 | NUR ---
Patient in room ED 3. I have received report from JONH Tabares and had the opportunity to ask questions and assume patient care.
--- NOTE | 2020-11-23 16:30 | NUR ---
Pt arrived to unit stable from ER via gurney. Oriented patient to room and call light. Completed 2 RN skin check and obtained VS. VSS. BLL, SRx2.
[2020-11-23 16:40] VITALS: BP 150/82
[2020-11-23 18:00] VITALS: BP 140/72
--- NOTE | 2020-11-23 18:19 | NUR ---
Problems reprioritized. Patient report given, questions answered & plan of care reviewed with JONH George.
[2020-11-23] MEDS: morphine 2 MG/ML inj. syringe IV PRN (19:11)
[2020-11-23] MEDS: cefepime 2g/NS 100ml ADVANTAGE 100 ML IV SCH (19:59)
[2020-11-23] MEDS ORDERED: temazepam 15mg capsule PO PRN (21:00)
[2020-11-24 00:01] VITALS: BP 132/53
[2020-11-24] MEDS: LORazepam 2 mg/ml vial IV PRN (02:16)
[2020-11-24] MEDS: morphine 2 MG/ML inj. syringe IV PRN ×4 (02:16→21:47)
[2020-11-24] MEDS: VANCOmycin 1250MG/NS 250ml Bag 250 ML IV SCH ×2 (02:19→13:23)
[2020-11-24 05:19] VITALS: BP 166/81
--- NOTE | 2020-11-24 05:21 | NUR ---
PATIENT FELL TRYING TO GET OUT OF BED TO VOID. HE HAD USED A URINAL FEW TIMES THROUGH THE NIGHT BUT FORGOT ABOUT IT. VITAL SIGNS WITHIN NORMAL LIMITS (T 98.2, BP 166/81, HR 100, RR 20, O2 97 ON RA) MD AND HANG GLIDING INSTRUCTOR NOTIFIED. NO BLEEDING OR OPEN AREAS NOTED. PATIENT REORIENTED AND WILL CONTINUE TO MONITOR.
[2020-11-24] MEDS: HYDROcodone/acetaminophen 10/325mg tab PO PRN ×3 (05:33→20:16)
[2020-11-24 06:02] LABS: BASOPHILS # (AUTO) 0.1 X10'3 (0-0.2); BASOPHILS % (AUTO) 1.3 % (0-1); EOSINOPHILS # (AUTO) 0.3 X10'3 (0-0.9); HEMATOCRIT 33.5 % (42.0-52.0); HEMOGLOBIN 11.4 g/dl (14.0-17.9); LYMPHOCYTES # (AUTO) 0.9 X10'3 (1.1-4.8); LYMPHOCYTES % (AUTO) 17.9 % (21-51); MEAN CORPUSCULAR HEMOGLOBIN 34.9 PG (27.0-31.0); MEAN CORPUSCULAR HGB CONC 34.1 g/dL (33.0-36.5); MEAN CORPUSCULAR VOLUME 102.4 FL (78-98); MONOCYTES # (AUTO) 0.4 X10'3 (0-0.9); MONOCYTES % (AUTO) 8.3 % (2-12); NEUTROPHILS # (AUTO) 3.2 X10'3 (1.8-7.7); NEUTROPHILS % (AUTO) 65.5 % (42-75); PLATELET COUNT 80 X10'3 (140-440); RED BLOOD COUNT 3.27 X10'6 (4.70-6.10); RED CELL DISTRIBUTION WIDTH 15.9 % (11.5-14.5); WHITE BLOOD COUNT 4.9 X10'3 (4.5-11.0)
--- NOTE | 2020-11-24 06:11 | NUR ---
Patient in room THOM 352. I have received report from Trini George and had the opportunity to ask questions and assume patient care.
[2020-11-24 06:18] LABS: ALANINE AMINOTRANSFERASE 14 U/L (12-78); ALBUMIN 2.6 G/DL (3.4-5.0); ALBUMIN/GLOBULIN RATIO 0.6 (1.1-1.5); ALKALINE PHOSPHATASE 70 IU/L (46-116); ANION GAP 5 (8-16); ASPARTATE AMINO TRANSFERASE 45 U/L (10-37); BILIRUBIN,TOTAL 2.2 MG/DL (0.1-1.0); BLOOD UREA NITROGEN 8 MG/DL (7-18); CALCIUM 7.9 MG/DL (8.5-10.1); CHLORIDE 103 MMOL/L (99-107); CHOL/HDL RATIO 2.6 (0.00-4.99); CHOLESTEROL 111 MG/DL (0-200); CREATININE 1.15 MG/DL (0.60-1.10); GLUCOSE 100 MG/DL (70-104); HDL CHOLESTEROL 43 MG/DL (35-60); LDL CHOLESTEROL 56 MG/DL (50-100); POTASSIUM 3.4 MMOL/L (3.5-5.1); SODIUM 138 MMOL/L (135-145); TOTAL CARBON DIOXIDE 29.6 MMOL/L (24-32); TOTAL PROTEIN 7.3 G/DL (6.4-8.2); TRIGLYCERIDES 68 MG/DL (20-135); eGFR 65 ML/MIN
--- NOTE | 2020-11-24 06:20 | NUR ---
Problems reprioritized. Patient report given, questions answered & plan of care reviewed with DEBORA BORJA.
[2020-11-24 07:00] VITALS: BP 148/76
[2020-11-24] MEDS: cefepime 2g/NS 100ml ADVANTAGE 100 ML IV SCH ×2 (07:34→20:08)
[2020-11-24] MEDS: K and/or MAG REPLACEMENT MC SCH (07:35)
[2020-11-24] MEDS: multivitamins, therapeutics tablet PO SCH (07:37)
[2020-11-24] MEDS: pantoprazole 40mg Tablet.DR PO SCH (07:37)
[2020-11-24] MEDS: thiamine 100mg tablet PO SCH (07:37)
[2020-11-24] MEDS: folic acid 1mg tablet PO SCH (07:37)
[2020-11-24] MEDS: docusate sod 100mg capsule PO SCH ×2 (07:38→20:07)
[2020-11-24] MEDS: nicotine 21mg patch - 24 hr TD SCH (07:38)
[2020-11-24] MEDS: potassium Cl 20 mEq SR tablet PO PRN ×3 (07:40→23:54)
[2020-11-24] MEDS: mineral oil/petrolatum, white cream 113gm jar TP SCH ×2 (10:55→21:52)
[2020-11-24 11:00] VITALS: BP 155/70
[2020-11-24] MEDS ORDERED: VANCOMYCIN LEVEL IV ONE (13:30)
--- NOTE | 2020-11-24 15:19 | NUR ---
Noted pt with a low Saurabh of 12. Per WOC notes pt with BLE cellulitis, macerated around weeping open wounds, partial thick. Pt on a regular diet documented to have refused first two meals with the exception of 100% PO intake of starch at breakfast this morning. Attempted visit with pt at bedside however pt sleeping and did not wake with verbal cues. Written high protein education with alternative menu and RD contact information left at bedside. Pt with EtOH hx, currently receiving routine Thiamine, Folic acid, and MVI. LBM 11/22, receiving routine bowel care. Will continue to follow closely and monitor need for appropriate nutrition intervention pending further trends in PO intake. Recommendations: 1) Continue regular diet; heart healthy diet if average PO intake greater than 75% of meals 2) Monitor need for ONS/additional protein 3) Routine Thiamine, Folic acid, and MVI for EtOH hx with elevated MCV 4) Routine bowel care 5) Scaled weight this admit; weekly scaled weights thereafter Addendum: 11/24/20 at [address] Amended: Links added.
--- NOTE | 2020-11-24 16:04 | NUR ---
PAGER ID: [phone] MESSAGE: 352: Sam White: Ordered an [facility] art scan for BLE, did you want a venous scan? My apologies -ramu [id number]
[2020-11-24 18:00] VITALS: BP 152/92
--- NOTE | 2020-11-24 18:19 | NUR ---
Problems reprioritized. Patient report given, questions answered & plan of care reviewed with JONH George and JONH TREADWELL.
--- NOTE | 2020-11-24 18:49 | NUR ---
Patient in room THOM 352. I have received report from Quita BORJA and had the opportunity to ask questions and assume patient care.
--- NOTE | 2020-11-24 19:15 | NUR ---
Patient in room THOM 352. I have received report from DEBORA BORJA and had the opportunity to ask questions and assume patient care.
--- NOTE | 2020-11-24 23:07 | NUR ---
Pt attributes burning pain with the use of ABX Addendum: 11/24/20 at 2309 by Abelino Quiroga RN Amended: Links added.
[2020-11-25] VITALS: BP 156/80
[2020-11-25] MEDS ORDERED: LORazepam 1 MG tablet PO PRN (01:00)
[2020-11-25] MEDS ORDERED: LORazepam 2 mg/ml vial IV PRN (01:00)
[2020-11-25] MEDS: normal saline 1000ml 1,000 ML IV SCH (01:00)
[2020-11-25] MEDS: VANCOmycin 1250MG/NS 250ml Bag 250 ML IV SCH ×2 (01:34→14:33)
[2020-11-25] MEDS: HYDROcodone/acetaminophen 10/325mg tab PO PRN ×4 (01:47→21:51)
[2020-11-25 06:01] LABS: BASOPHILS % (AUTO) 0.9 % (0-1); EOSINOPHILS # (AUTO) 0.4 X10'3 (0-0.9); EOSINOPHILS % (AUTO) 7.1 % (0-6); HEMATOCRIT 31.8 % (42.0-52.0); HEMOGLOBIN 10.8 g/dl (14.0-17.9); LYMPHOCYTES # (AUTO) 0.6 X10'3 (1.1-4.8); LYMPHOCYTES % (AUTO) 12.1 % (21-51); MEAN CORPUSCULAR HEMOGLOBIN 34.8 PG (27.0-31.0); MEAN CORPUSCULAR HGB CONC 33.9 g/dL (33.0-36.5); MEAN CORPUSCULAR VOLUME 102.7 FL (78-98); MEAN PLATELET VOLUME 7.8 FL (7.4-10.4); MONOCYTES # (AUTO) 0.5 X10'3 (0-0.9); MONOCYTES % (AUTO) 9.5 % (2-12); NEUTROPHILS # (AUTO) 3.7 X10'3 (1.8-7.7); NEUTROPHILS % (AUTO) 70.4 % (42-75); PLATELET COUNT 73 X10'3 (140-440); RED CELL DISTRIBUTION WIDTH 15.6 % (11.5-14.5); WHITE BLOOD COUNT 5.3 X10'3 (4.5-11.0)
[2020-11-25 06:13] LABS: ALANINE AMINOTRANSFERASE 12 U/L (12-78); ALBUMIN 2.4 G/DL (3.4-5.0); ALBUMIN/GLOBULIN RATIO 0.5 (1.1-1.5); ALKALINE PHOSPHATASE 64 IU/L (46-116); ANION GAP 5 (8-16); ASPARTATE AMINO TRANSFERASE 41 U/L (10-37); BILIRUBIN,TOTAL 2.1 MG/DL (0.1-1.0); BLOOD UREA NITROGEN 8 MG/DL (7-18); BUN/CREATININE RATIO 7.3 (5.4-32.0); CALCIUM 7.9 MG/DL (8.5-10.1); CHLORIDE 105 MMOL/L (99-107); GLUCOSE 99 MG/DL (70-104); MAGNESIUM 2.1 MG/DL (1.5-2.4); POTASSIUM 3.6 MMOL/L (3.5-5.1); SODIUM 139 MMOL/L (135-145); TOTAL CARBON DIOXIDE 28.7 MMOL/L (24-32); TOTAL PROTEIN 6.8 G/DL (6.4-8.2); eGFR 69 ML/MIN
--- NOTE | 2020-11-25 06:28 | NUR ---
Problems reprioritized. Patient report given, questions answered & plan of care reviewed with RADHIKA BORJA.
--- NOTE | 2020-11-25 06:35 | NUR ---
Patient in room THOM 352. I have received report from JONH Gonsalez and had the opportunity to ask questions and assume patient care.
[2020-11-25] MEDS: cefepime 2g/NS 100ml ADVANTAGE 100 ML IV SCH ×3 (07:50→20:04)
[2020-11-25] MEDS: docusate sod 100mg capsule PO SCH ×2 (07:51→19:58)
[2020-11-25] MEDS: thiamine 100mg tablet PO SCH (07:51)
[2020-11-25] MEDS: pantoprazole 40mg Tablet.DR PO SCH (07:51)
[2020-11-25] MEDS: folic acid 1mg tablet PO SCH (07:51)
[2020-11-25] MEDS: multivitamins, therapeutics tablet PO SCH (07:51)
[2020-11-25] MEDS: nicotine 21mg patch - 24 hr TD SCH (07:54)
[2020-11-25 08:00] VITALS: BP 159/87
[2020-11-25] MEDS: K and/or MAG REPLACEMENT MC SCH (08:00)
[2020-11-25 11:00] VITALS: BP 147/71
[2020-11-25] MEDS: morphine 2 MG/ML inj. syringe IV PRN ×2 (11:11→20:06)
[2020-11-25 18:00] VITALS: BP 156/81
--- NOTE | 2020-11-25 18:18 | NUR ---
Patient in room THOM 352. I have received report from Shavon BORJA and had the opportunity to ask questions and assume patient care.
--- NOTE | 2020-11-25 18:34 | NUR ---
Problems reprioritized. Patient report given, questions answered & plan of care reviewed with JONH George.
--- NOTE | 2020-11-25 18:54 | NUR ---
Patient in room THOM 352. I have received report from RADHIKA BORJA and had the opportunity to ask questions and assume patient care.
[2020-11-26] VITALS: BP 147/90
[2020-11-26] MEDS: morphine 2 MG/ML inj. syringe IV PRN ×2 (00:50→10:12)
[2020-11-26] MEDS: VANCOmycin 1250MG/NS 250ml Bag 250 ML IV SCH (02:18)
[2020-11-26] MEDS ORDERED: ipratropium/albuterol 3ml nebule NEB PRN (03:05)
[2020-11-26] MEDS: HYDROcodone/acetaminophen 10/325mg tab PO PRN ×2 (05:52→12:08)
[2020-11-26 05:57] LABS: BASOPHILS % (AUTO) 0.7 % (0-1); EOSINOPHILS # (AUTO) 0.3 X10'3 (0-0.9); EOSINOPHILS % (AUTO) 6.9 % (0-6); HEMATOCRIT 31.6 % (42.0-52.0); HEMOGLOBIN 10.9 g/dl (14.0-17.9); LYMPHOCYTES # (AUTO) 0.6 X10'3 (1.1-4.8); LYMPHOCYTES % (AUTO) 14.2 % (21-51); MEAN CORPUSCULAR HEMOGLOBIN 35.3 PG (27.0-31.0); MEAN CORPUSCULAR HGB CONC 34.4 g/dL (33.0-36.5); MEAN CORPUSCULAR VOLUME 102.4 FL (78-98); MEAN PLATELET VOLUME 7.8 FL (7.4-10.4); MONOCYTES # (AUTO) 0.5 X10'3 (0-0.9); MONOCYTES % (AUTO) 11.2 % (2-12); NEUTROPHILS # (AUTO) 3.1 X10'3 (1.8-7.7); PLATELET COUNT 72 X10'3 (140-440); RED BLOOD COUNT 3.09 X10'6 (4.70-6.10); RED CELL DISTRIBUTION WIDTH 15.8 % (11.5-14.5); WHITE BLOOD COUNT 4.6 X10'3 (4.5-11.0)
[2020-11-26 06:19] LABS: ALANINE AMINOTRANSFERASE 13 U/L (12-78); ALBUMIN 2.4 G/DL (3.4-5.0); ALBUMIN/GLOBULIN RATIO 0.5 (1.1-1.5); ALKALINE PHOSPHATASE 64 IU/L (46-116); ANION GAP 8 (8-16); ASPARTATE AMINO TRANSFERASE 39 U/L (10-37); BILIRUBIN,TOTAL 1.7 MG/DL (0.1-1.0); BLOOD UREA NITROGEN 8 MG/DL (7-18); BUN/CREATININE RATIO 7.3 (5.4-32.0); CALCIUM 7.9 MG/DL (8.5-10.1); CHLORIDE 107 MMOL/L (99-107); CREATININE 1.09 MG/DL (0.60-1.10); GLUCOSE 98 MG/DL (70-104); MAGNESIUM 2.1 MG/DL (1.5-2.4); POTASSIUM 3.4 MMOL/L (3.5-5.1); SODIUM 142 MMOL/L (135-145); TOTAL CARBON DIOXIDE 26.7 MMOL/L (24-32); TOTAL PROTEIN 6.9 G/DL (6.4-8.2); eGFR 69 ML/MIN
--- NOTE | 2020-11-26 06:29 | NUR ---
Problems reprioritized. Patient report given, questions answered & plan of care reviewed with JULIO C BORJA.
--- NOTE | 2020-11-26 06:37 | NUR ---
Patient in room THOM 352. I have received report from Doris BORJA and had the opportunity to ask questions and assume patient care.
[2020-11-26] MEDS: cefepime 2g/NS 100ml ADVANTAGE 100 ML IV SCH (07:48)
[2020-11-26] MEDS: multivitamins, therapeutics tablet PO SCH (07:48)
[2020-11-26] MEDS: thiamine 100mg tablet PO SCH (07:48)
[2020-11-26] MEDS: pantoprazole 40mg Tablet.DR PO SCH (07:48)
[2020-11-26] MEDS: folic acid 1mg tablet PO SCH (07:48)
[2020-11-26] MEDS: docusate sod 100mg capsule PO SCH (07:48)
[2020-11-26] MEDS: nicotine 21mg patch - 24 hr TD SCH ×2 (07:49→09:26)
[2020-11-26] MEDS: mineral oil/petrolatum, white cream 113gm jar TP SCH (07:49)
[2020-11-26 08:00] VITALS: BP 168/90
[2020-11-26] MEDS: K and/or MAG REPLACEMENT MC SCH (08:00)
[2020-11-26] MEDS ORDERED: PANT40TA54 PO (10:33)
[2020-11-26] MEDS ORDERED: thiamine tablet PO (10:33)
[2020-11-26] MEDS ORDERED: CLIN-97 PO (10:33)
[2020-11-26] MEDS ORDERED: folic acid tablet PO (10:33)
[2020-11-26 11:00] VITALS: BP 151/82
--- NOTE | 2020-11-26 12:30 | NUR ---
Pt is A & O x 4 an in no apparent distress. pt verbalizes understanding of ALL DC orders. DC orders given to Pt & daughter. Pt understands the importance of following up with his PCP and finishing up all antibiotics. pt taught how to do wound care and given some supplies to do so. Pt has ans wound care schedule after DC. pt's IV DC intact. Pt wheeled to the front where his daughter took him home.
[2020-11-27] MEDS ORDERED: LORazepam 1 MG tablet PO PRN (01:00)
[2020-11-27] MEDS ORDERED: LORazepam 2 mg/ml vial IV PRN (01:00)
== END 2020-11-26 12:52 | disposition home health service (06) | DRG 720 ==
LOC: ER 18:39 → ED HOLD 11-23 00:56 → SUR 3N 11-23 16:24
PROVIDERS: ADMIT Family Medicine; ATTEND Family Medicine
DX: A41.9 Sepsis, unspecified organism (principal); I50.30 Unspecified diastolic (congestive) heart failure; D69.59 Other secondary thrombocytopenia; E83.42 Hypomagnesemia; J43.9 Emphysema, unspecified; K74.60 Unspecified cirrhosis of liver; D64.9 Anemia, unspecified; E87.6 Hypokalemia; F10.229 Alcohol dependence with intoxication, unspecified; F10.230 Alcohol dependence with withdrawal, uncomplicated; F17.210 Nicotine dependence, cigarettes, uncomplicated; F41.0 Panic disorder [episodic paroxysmal anxiety]; S81.802A Unspecified open wound, left lower leg, initial encounter; S81.801A Unspecified open wound, right lower leg, initial encounter; X58.XXXA Exposure to other specified factors, initial encounter; G89.4 Chronic pain syndrome; I87.2 Venous insufficiency (chronic) (peripheral); I89.0 Lymphedema, not elsewhere classified; L03.115 Cellulitis of right lower limb; L03.116 Cellulitis of left lower limb; R30.0 Dysuria; Z79.899 Other long term (current) drug therapy; Y93.89 Activity, other specified; Y92.89 Other specified places as the place of occurrence of the external cause; Y99.8 Other external cause status; Z71.6 Tobacco abuse counseling
CPT/HCPCS: 36415; 71045; 80053; 80061; 80202; 80305; 80320; 81001; 82140; 83036; 83605; 83690; 83735; 83880; 84100; 84132; 84145; 84443; 84484; 85025; 85610; 85730; 87040; 87081; 87088; 93005; 93925; 93970; 94640; 94760; 96374; 96375; 96376; 99285; G0378; J0692; J0696; J2060; J2270; J2405; J2543; J3370; J3475; J3480; J7030

== ENCOUNTER 2021-12-02 17:14 | Inpatient (IN) | payer MEDICAID ==
[~2021-12-02] VITALS: Ht 180.3 cm; Wt 123.6 kg
[~2021-12-02 17:14] MED LIST changes: +CLIN-97 PO; -GABA300C PO; -HYDR-4353 PO; +METO5TAB98 PO; +OXYC10TA47 PO; +PANT40TA54 PO; +PREG50CA PO; +folic acid tablet PO; +thiamine tablet PO
[2021-12-02] MEDS ORDERED: furosemide 10 MG/1 ML 10ml inj IV ONE (19:10)
[2021-12-02 20:00] LABS: BASOPHILS % (AUTO) 0.5 % (0-1); EOSINOPHILS # (AUTO) 0.2 X10'3 (0-0.9); HEMATOCRIT 36.4 % (42.0-52.0); HEMOGLOBIN 12.6 g/dl (14.0-17.9); LYMPHOCYTES # (AUTO) 1.2 X10'3 (1.1-4.8); LYMPHOCYTES % (AUTO) 15.3 % (21-51); MEAN CORPUSCULAR HEMOGLOBIN 31.7 PG (27.0-31.0); MEAN CORPUSCULAR HGB CONC 34.6 g/dL (33.0-36.5); MEAN CORPUSCULAR VOLUME 91.6 FL (78-98); MEAN PLATELET VOLUME 7.9 FL (7.4-10.4); MONOCYTES # (AUTO) 1.2 X10'3 (0-0.9); NEUTROPHILS # (AUTO) 5.2 X10'3 (1.8-7.7); NEUTROPHILS % (AUTO) 66.2 % (42-75); PLATELET COUNT 223 X10'3 (140-440); RED BLOOD COUNT 3.98 X10'6 (4.70-6.10); RED CELL DISTRIBUTION WIDTH 14.5 % (11.5-14.5); WHITE BLOOD COUNT 7.8 X10'3 (4.5-11.0)
[2021-12-02 20:11] LABS: ALANINE AMINOTRANSFERASE 15 U/L (12-78); ALBUMIN 2.4 G/DL (3.4-5.0); ALBUMIN/GLOBULIN RATIO 0.5 (1.1-1.5); ALKALINE PHOSPHATASE 43 IU/L (46-116); ANION GAP 9 (8-16); ASPARTATE AMINO TRANSFERASE 48 U/L (10-37); BILIRUBIN,TOTAL 2.1 MG/DL (0.1-1.0); BLOOD UREA NITROGEN 12 MG/DL (7-18); BUN/CREATININE RATIO 9.8 (5.4-32.0); CALCIUM 8.7 MG/DL (8.5-10.1); CHLORIDE 94 MMOL/L (99-107); CREATININE 1.23 MG/DL (0.60-1.10); GLUCOSE 104 MG/DL (70-104); POTASSIUM 3.6 MMOL/L (3.5-5.1); SODIUM 129 MMOL/L (135-145); TOTAL PROTEIN 7.4 G/DL (6.4-8.2); eGFR 60 ML/MIN
[2021-12-02 20:12] LABS: HEMOGLOBIN A1C 5.6 % (4.5-6.2)
[2021-12-02] MEDS ORDERED: vancomycin/NS 1 GM ADD-VANTAGE 250 ML IV ONE (21:55)
[2021-12-02] MEDS ORDERED: HYDROcodone/acetaminophen 5mg/325mg tablet PO PRN (22:30)
[2021-12-02] MEDS ORDERED: POTASSIUM BICARB 20meq eff tab 20 MEQ TABLET.EFF PO PRN (22:30)
[2021-12-02] MEDS ORDERED: morphine 2 MG/ML inj. syringe IV PRN (22:30)
[2021-12-02] MEDS ORDERED: potassium CL 10mEq/100ml bag 100 ML IV PRN (22:30)
[2021-12-02] MEDS ORDERED: mag hydrox/Alum hydrox/simeth 30ml oral suspension PO PRN (22:30)
[2021-12-02] MEDS ORDERED: magnesium 2GM in 50ml NS 50 ML IV PRN (22:30)
[2021-12-02] MEDS ORDERED: magnesium hydroxide 30ml (MOM) UD suspension PO PRN (22:30)
[2021-12-02] MEDS ORDERED: ondansetron/PF 4mg/2ml inj IV PRN (22:30)
[2021-12-02] MEDS ORDERED: magnesium 4gm in 100ml NS 100 ML IV PRN (22:30)
[2021-12-02] MEDS ORDERED: magnesium Cl slow-release 64mg tablet PO PRN (22:30)
[2021-12-02] MEDS ORDERED: acetaminophen 325mg tablet PO PRN ×2 (22:30)
[2021-12-02] MEDS ORDERED: FOLI0.4T14 PO (22:46)
[2021-12-02] MEDS ORDERED: THIA100T66 PO (22:46)
[2021-12-02] MEDS ORDERED: FOLI1TAB27 PO (22:46)
[2021-12-02 23:21] LABS: URINE AMPHETAMINE SCREEN NEGATIVE (Neg); URINE BARBITUATE SCREEN NEGATIVE (Neg); URINE BENZODIAZEPINES SCREEN NEGATIVE (Neg); URINE CANNABINOID SCREEN NEGATIVE (Neg); URINE COCAINE SCREEN NEGATIVE (Neg); URINE METHADONE SCREEN NEGATIVE (Neg); URINE OPIATE SCREEN POSITIVE (Neg); URINE PHENCYCLIDINE SCREEN NEGATIVE (Neg)
[2021-12-02 23:33] LABS: MAGNESIUM 1.5 MG/DL (1.5-2.4); POTASSIUM 3.1 MMOL/L (3.5-5.1)
[2021-12-03] MEDS ORDERED: non-formulary drug (Oxycodone Hcl 1 TAB) PO PRN (00:05)
[2021-12-03] MEDS ORDERED: ALBUTEROL INHALER 1 PUFF/90 MCG INHALation IH PRN (00:05)
[2021-12-03] MEDS ORDERED: albuterol 2.5 MG/3 ML nebule NEB PRN (00:30)
--- NOTE | 2021-12-03 05:30 | NUR ---
PT ARRIVED. VSS. ORIENTED TO THE ROOM. WOUND PICTURE TAKEN. RECEIVED REPORT FROM JONH LIRA PRIOR TO PT'S ARRIVAL.
[2021-12-03] MEDS: HYDROcodone/acetaminophen 10/325mg tab PO PRN ×2 (05:58→12:10)
[2021-12-03 06:25] VITALS: BP 99/43
--- NOTE | 2021-12-03 06:51 | NUR ---
Problems reprioritized. Patient report given, questions answered & plan of care reviewed with JONH NOLASCO.
--- NOTE | 2021-12-03 07:19 | NUR ---
Patient in room ORTHO 4013. I have received report from THO BORJA and had the opportunity to ask questions and assume patient care.
[2021-12-03] MEDS: metoprolol tartrate 50mg tablet PO SCH ×2 (07:30→17:45)
[2021-12-03] MEDS: K and/or MAG REPLACEMENT MC SCH ×2 (08:00→20:00)
[2021-12-03] MEDS ORDERED: pregabalin 25mg capsule PO SCH (08:00)
[2021-12-03] MEDS: thiamine 100mg tablet PO SCH (08:36)
[2021-12-03] MEDS: enoxaparin 40mg/0.4ml syringe SUBCUT SCH (08:36)
[2021-12-03] MEDS: POTASSIUM BICARB 20meq eff tab 20 MEQ TABLET.EFF PO PRN ×2 (08:37→14:41)
[2021-12-03] MEDS: docusate sod 100mg capsule PO SCH ×2 (08:38→20:25)
[2021-12-03] MEDS: folic acid 1mg tablet PO SCH (08:38)
[2021-12-03] MEDS: loratadine 10mg tablet PO SCH (08:39)
[2021-12-03] MEDS: furosemide 40mg/4ml inj IV SCH (08:45)
[2021-12-03 08:48] LABS: BASOPHILS # (AUTO) 0.1 X10'3 (0-0.2); BASOPHILS % (AUTO) 0.9 % (0-1); EOSINOPHILS # (AUTO) 0.1 X10'3 (0-0.9); EOSINOPHILS % (AUTO) 2.2 % (0-6); HEMATOCRIT 34.1 % (42.0-52.0); HEMOGLOBIN 11.6 g/dl (14.0-17.9); LYMPHOCYTES # (AUTO) 1.3 X10'3 (1.1-4.8); LYMPHOCYTES % (AUTO) 19.5 % (21-51); MEAN CORPUSCULAR HEMOGLOBIN 31.3 PG (27.0-31.0); MEAN CORPUSCULAR HGB CONC 34.2 g/dL (33.0-36.5); MEAN CORPUSCULAR VOLUME 91.7 FL (78-98); MEAN PLATELET VOLUME 7.9 FL (7.4-10.4); MONOCYTES # (AUTO) 1.2 X10'3 (0-0.9); MONOCYTES % (AUTO) 18.4 % (2-12); NEUTROPHILS # (AUTO) 3.8 X10'3 (1.8-7.7); PLATELET COUNT 190 X10'3 (140-440); RED BLOOD COUNT 3.72 X10'6 (4.70-6.10); RED CELL DISTRIBUTION WIDTH 14.5 % (11.5-14.5); WHITE BLOOD COUNT 6.4 X10'3 (4.5-11.0)
[2021-12-03 09:36] LABS: ALANINE AMINOTRANSFERASE 15 U/L (12-78); ALBUMIN 1.9 G/DL (3.4-5.0); ALBUMIN/GLOBULIN RATIO 0.4 (1.1-1.5); ALKALINE PHOSPHATASE 35 IU/L (46-116); ANION GAP 10 (8-16); ASPARTATE AMINO TRANSFERASE 44 U/L (10-37); BILIRUBIN,TOTAL 1.8 MG/DL (0.1-1.0); BLOOD UREA NITROGEN 13 MG/DL (7-18); BUN/CREATININE RATIO 10.8 (5.4-32.0); CALCIUM 8.2 MG/DL (8.5-10.1); CHLORIDE 95 MMOL/L (99-107); CHOL/HDL RATIO 3.1 (0.00-4.99); CHOLESTEROL 66 MG/DL (0-200); GLUCOSE 102 MG/DL (70-104); HDL CHOLESTEROL 21 MG/DL (35-60); LDL CHOLESTEROL 40 MG/DL (50-100); MAGNESIUM 1.6 MG/DL (1.5-2.4); POTASSIUM 3.2 MMOL/L (3.5-5.1); SODIUM 131 MMOL/L (135-145); TOTAL CARBON DIOXIDE 26.3 MMOL/L (24-32); TOTAL PROTEIN 6.4 G/DL (6.4-8.2); TRIGLYCERIDES 64 MG/DL (20-135); eGFR 62 ML/MIN
[2021-12-03 10:00] VITALS: BP 118/54
[2021-12-03] MEDS ORDERED: POTA8TAB69 PO (10:32)
[2021-12-03] MEDS ORDERED: PREG100C55 PO (10:32)
[2021-12-03] MEDS ORDERED: ATRIN IH (10:32)
[2021-12-03 10:36] LABS: LYMPHOCYTES % (MANUAL) 14 % (21-51); MONOCYTES % (MANUAL) 15 % (2-12); NEUTROPHILS % (MANUAL) 70 % (42-75); PLATELET ESTIMATE NORMAL; TOTAL CELLS COUNTED 100
[2021-12-03] MEDS: pregabalin 25mg capsule PO SCH ×2 (12:10→20:25)
[2021-12-03] MEDS: pregabalin 75mg capsule PO SCH ×2 (12:10→20:25)
[2021-12-03] MEDS: vancomycin/NS 1 GM ADD-VANTAGE 250 ML IV SCH ×2 (12:11→21:25)
[2021-12-03] MEDS: potassium chloride 8mEq ER tablet PO SCH (15:08)
--- NOTE | 2021-12-03 16:47 | NUR ---
patient K 3.1 being replaced per protocol.Seen by Dr Guerrero and wound team. orders given. covid test negative. patient was coughing this am, but less this afternoon. [place] given for pain with good result. will continue to monitor
[2021-12-03] MEDS: oxyCODONE IR 5mg (immed. release) tablet PO PRN (17:46)
[2021-12-03 18:00] VITALS: BP 112/48
--- NOTE | 2021-12-03 18:59 | NUR ---
Problems reprioritized. Patient report given, questions answered & plan of care reviewed with MP rojas.
[2021-12-03] MEDS ORDERED: PREGABALIN PO SCH (21:00)
[2021-12-03 22:00] VITALS: BP 114/63
[2021-12-04] MEDS: POTASSIUM BICARB 20meq eff tab 20 MEQ TABLET.EFF PO PRN (00:39)
[2021-12-04] MEDS: oxyCODONE IR 5mg (immed. release) tablet PO PRN ×4 (00:39→22:03)
[2021-12-04 06:00] VITALS: BP 118/55
[2021-12-04 06:18] LABS: BASOPHILS # (AUTO) 0.1 X10'3 (0-0.2); EOSINOPHILS # (AUTO) 0.2 X10'3 (0-0.9); EOSINOPHILS % (AUTO) 4.8 % (0-6); HEMATOCRIT 33.5 % (42.0-52.0); HEMOGLOBIN 11.5 g/dl (14.0-17.9); LYMPHOCYTES # (AUTO) 1.1 X10'3 (1.1-4.8); MEAN CORPUSCULAR HEMOGLOBIN 31.7 PG (27.0-31.0); MEAN CORPUSCULAR HGB CONC 34.3 g/dL (33.0-36.5); MEAN CORPUSCULAR VOLUME 92.2 FL (78-98); MONOCYTES # (AUTO) 0.7 X10'3 (0-0.9); MONOCYTES % (AUTO) 14.7 % (2-12); NEUTROPHILS # (AUTO) 2.9 X10'3 (1.8-7.7); NEUTROPHILS % (AUTO) 57.5 % (42-75); PLATELET COUNT 193 X10'3 (140-440); RED BLOOD COUNT 3.63 X10'6 (4.70-6.10); RED CELL DISTRIBUTION WIDTH 14.6 % (11.5-14.5); WHITE BLOOD COUNT 5.1 X10'3 (4.5-11.0)
[2021-12-04 06:39] LABS: ALANINE AMINOTRANSFERASE 17 U/L (12-78); ALBUMIN 1.8 G/DL (3.4-5.0); ALBUMIN/GLOBULIN RATIO 0.4 (1.1-1.5); ALKALINE PHOSPHATASE 42 IU/L (46-116); ANION GAP 6 (8-16); ASPARTATE AMINO TRANSFERASE 39 U/L (10-37); BILIRUBIN,TOTAL 1.1 MG/DL (0.1-1.0); BLOOD UREA NITROGEN 13 MG/DL (7-18); BUN/CREATININE RATIO 9.7 (5.4-32.0); CALCIUM 8.2 MG/DL (8.5-10.1); CHLORIDE 99 MMOL/L (99-107); CREATININE 1.34 MG/DL (0.60-1.10); GLUCOSE 88 MG/DL (70-104); MAGNESIUM 1.6 MG/DL (1.5-2.4); POTASSIUM 3.7 MMOL/L (3.5-5.1); SODIUM 134 MMOL/L (135-145); TOTAL CARBON DIOXIDE 28.7 MMOL/L (24-32); TOTAL PROTEIN 6.3 G/DL (6.4-8.2); eGFR 54 ML/MIN
--- NOTE | 2021-12-04 06:39 | NUR ---
Patient in room ORTHO 4013B. I have received report from JONH WHITEHEAD and had the opportunity to ask questions and assume patient care.
[2021-12-04] MEDS: docusate sod 100mg capsule PO SCH ×2 (08:00→20:38)
[2021-12-04] MEDS: folic acid 1mg tablet PO SCH (09:15)
[2021-12-04] MEDS: vancomycin/NS 1 GM ADD-VANTAGE 250 ML IV SCH ×3 (09:15→22:02)
[2021-12-04] MEDS: furosemide 40mg/4ml inj IV SCH ×2 (09:15→12:15)
[2021-12-04] MEDS: enoxaparin 40mg/0.4ml syringe SUBCUT SCH (09:16)
[2021-12-04] MEDS: pregabalin 25mg capsule PO SCH ×3 (09:16→20:38)
[2021-12-04] MEDS: pregabalin 75mg capsule PO SCH ×3 (09:16→20:38)
[2021-12-04] MEDS: loratadine 10mg tablet PO SCH (09:16)
[2021-12-04] MEDS: potassium chloride 8mEq ER tablet PO SCH (09:16)
[2021-12-04] MEDS: thiamine 100mg tablet PO SCH (09:17)
[2021-12-04] MEDS: metoprolol tartrate 50mg tablet PO SCH ×2 (09:17→18:50)
[2021-12-04] MEDS: K and/or MAG REPLACEMENT MC SCH ×2 (09:18→20:00)
[2021-12-04] MEDS ORDERED: VANCOMYCIN LEVEL IV ONE (09:30)
[2021-12-04 10:00] VITALS: BP 113/53
[2021-12-04] MEDS ORDERED: albuterol 2.5 MG/3 ML nebule NEB PRN (12:10)
[2021-12-04 14:00] VITALS: BP 113/61
[2021-12-04] MEDS: benzonatate 100mg capsule PO SCH ×2 (16:01→23:44)
[2021-12-04 18:00] VITALS: BP 107/44
--- NOTE | 2021-12-04 19:16 | NUR ---
Problems reprioritized. Patient report given, questions answered & plan of care reviewed with JONH WHITEHEAD.
[2021-12-04 22:00] VITALS: BP 109/53
[2021-12-05] MEDS: oxyCODONE IR 5mg (immed. release) tablet PO PRN ×3 (04:47→17:31)
[2021-12-05 06:29] LABS: BASOPHILS # (AUTO) 0.1 X10'3 (0-0.2); BASOPHILS % (AUTO) 1.2 % (0-1); EOSINOPHILS # (AUTO) 0.3 X10'3 (0-0.9); EOSINOPHILS % (AUTO) 5.3 % (0-6); HEMATOCRIT 30.4 % (42.0-52.0); HEMOGLOBIN 10.4 g/dl (14.0-17.9); LYMPHOCYTES # (AUTO) 1.7 X10'3 (1.1-4.8); LYMPHOCYTES % (AUTO) 28.6 % (21-51); MEAN CORPUSCULAR HEMOGLOBIN 31.6 PG (27.0-31.0); MEAN CORPUSCULAR HGB CONC 34.3 g/dL (33.0-36.5); MEAN CORPUSCULAR VOLUME 92.2 FL (78-98); MONOCYTES # (AUTO) 0.8 X10'3 (0-0.9); MONOCYTES % (AUTO) 13.7 % (2-12); NEUTROPHILS % (AUTO) 51.2 % (42-75); PLATELET COUNT 186 X10'3 (140-440); RED CELL DISTRIBUTION WIDTH 14.4 % (11.5-14.5); WHITE BLOOD COUNT 5.9 X10'3 (4.5-11.0)
--- NOTE | 2021-12-05 06:36 | NUR ---
Problems reprioritized. Patient report given, questions answered & plan of care reviewed with JONH THRASHER.
[2021-12-05 06:53] LABS: ALANINE AMINOTRANSFERASE 12 U/L (12-78); ALBUMIN 1.8 G/DL (3.4-5.0); ALBUMIN/GLOBULIN RATIO 0.5 (1.1-1.5); ALKALINE PHOSPHATASE 38 IU/L (46-116); ANION GAP 6 (8-16); ASPARTATE AMINO TRANSFERASE 37 U/L (10-37); BILIRUBIN,TOTAL 0.8 MG/DL (0.1-1.0); BLOOD UREA NITROGEN 12 MG/DL (7-18); BUN/CREATININE RATIO 11.1 (5.4-32.0); CALCIUM 8.3 MG/DL (8.5-10.1); CHLORIDE 100 MMOL/L (99-107); CREATININE 1.08 MG/DL (0.60-1.10); GLUCOSE 87 MG/DL (70-104); MAGNESIUM 1.7 MG/DL (1.5-2.4); POTASSIUM 3.2 MMOL/L (3.5-5.1); SODIUM 135 MMOL/L (135-145); TOTAL CARBON DIOXIDE 29.4 MMOL/L (24-32); TOTAL PROTEIN 5.7 G/DL (6.4-8.2); eGFR 70 ML/MIN
[2021-12-05 07:20] VITALS: BP 101/51
[2021-12-05] MEDS: metoprolol tartrate 50mg tablet PO SCH ×2 (07:30→17:31)
[2021-12-05] MEDS: furosemide 40mg/4ml inj IV SCH (08:00)
[2021-12-05] MEDS: K and/or MAG REPLACEMENT MC SCH ×2 (08:00→20:00)
[2021-12-05] MEDS: benzonatate 100mg capsule PO SCH ×2 (08:07→17:32)
[2021-12-05] MEDS: loratadine 10mg tablet PO SCH (08:07)
[2021-12-05] MEDS: potassium chloride 8mEq ER tablet PO SCH (08:07)
[2021-12-05] MEDS: pregabalin 75mg capsule PO SCH ×3 (08:07→20:15)
[2021-12-05] MEDS: docusate sod 100mg capsule PO SCH ×2 (08:07→20:15)
[2021-12-05] MEDS: pregabalin 25mg capsule PO SCH ×3 (08:07→20:15)
[2021-12-05] MEDS: POTASSIUM BICARB 20meq eff tab 20 MEQ TABLET.EFF PO PRN (08:08)
[2021-12-05] MEDS: folic acid 1mg tablet PO SCH (08:08)
[2021-12-05] MEDS: thiamine 100mg tablet PO SCH (08:08)
[2021-12-05] MEDS: enoxaparin 40mg/0.4ml syringe SUBCUT SCH (08:08)
[2021-12-05 10:45] VITALS: BP 94/50
[2021-12-05] MEDS: vancomycin/NS 1 GM ADD-VANTAGE 250 ML IV SCH ×2 (11:26→22:21)
--- NOTE | 2021-12-05 13:33 | NUR ---
Page sent to RT. [id number] Gabby White: requesting treatment. thanks!
[2021-12-05] MEDS: ipratropium 0.5 MG/2.5ML nebule IH SCH ×2 (14:13→20:00)
--- NOTE | 2021-12-05 15:05 | NUR ---
Message: [phone] Gabby White: MRI called and suggested having a CT scan done first to isolate the area you would like to see on MRI. please advise? thanks, eva Worley9 Transaction number: [id number]
[2021-12-05 18:00] VITALS: BP 109/49
--- NOTE | 2021-12-05 18:18 | NUR ---
Problems reprioritized. Patient report given, questions answered & plan of care reviewed with JONH Lennon.
[2021-12-05] MEDS: mineral oil/petrolatum, white cream 113gm jar TP SCH (20:16)
[2021-12-05 22:00] VITALS: BP 107/54
[2021-12-06] MEDS: benzonatate 100mg capsule PO SCH ×4 (00:11→23:59)
[2021-12-06] MEDS: oxyCODONE IR 5mg (immed. release) tablet PO PRN ×4 (00:12→23:59)
[2021-12-06] MEDS: ipratropium 0.5 MG/2.5ML nebule IH SCH ×4 (02:00→20:00)
[2021-12-06 06:00] VITALS: BP 115/58
[2021-12-06 06:09] LABS: BASOPHILS % (AUTO) 0.9 % (0-1); EOSINOPHILS # (AUTO) 0.2 X10'3 (0-0.9); EOSINOPHILS % (AUTO) 4.5 % (0-6); HEMATOCRIT 33.2 % (42.0-52.0); HEMOGLOBIN 11.2 g/dl (14.0-17.9); LYMPHOCYTES # (AUTO) 1.6 X10'3 (1.1-4.8); LYMPHOCYTES % (AUTO) 29.6 % (21-51); MEAN CORPUSCULAR HEMOGLOBIN 31.3 PG (27.0-31.0); MEAN CORPUSCULAR HGB CONC 33.8 g/dL (33.0-36.5); MEAN CORPUSCULAR VOLUME 92.6 FL (78-98); MONOCYTES # (AUTO) 0.6 X10'3 (0-0.9); MONOCYTES % (AUTO) 12.2 % (2-12); NEUTROPHILS # (AUTO) 2.8 X10'3 (1.8-7.7); NEUTROPHILS % (AUTO) 52.8 % (42-75); PLATELET COUNT 178 X10'3 (140-440); RED BLOOD COUNT 3.58 X10'6 (4.70-6.10); RED CELL DISTRIBUTION WIDTH 14.5 % (11.5-14.5); WHITE BLOOD COUNT 5.3 X10'3 (4.5-11.0)
[2021-12-06 06:14] LABS: ALANINE AMINOTRANSFERASE 17 U/L (12-78); ALBUMIN 1.8 G/DL (3.4-5.0); ALBUMIN/GLOBULIN RATIO 0.4 (1.1-1.5); ALKALINE PHOSPHATASE 44 IU/L (46-116); ANION GAP 6 (8-16); ASPARTATE AMINO TRANSFERASE 50 U/L (10-37); BILIRUBIN,TOTAL 0.9 MG/DL (0.1-1.0); BLOOD UREA NITROGEN 11 MG/DL (7-18); BUN/CREATININE RATIO 10.6 (5.4-32.0); CALCIUM 8.3 MG/DL (8.5-10.1); CHLORIDE 101 MMOL/L (99-107); CREATININE 1.04 MG/DL (0.60-1.10); GLUCOSE 87 MG/DL (70-104); MAGNESIUM 1.8 MG/DL (1.5-2.4); POTASSIUM 3.6 MMOL/L (3.5-5.1); SODIUM 136 MMOL/L (135-145); TOTAL PROTEIN 6.1 G/DL (6.4-8.2); eGFR 73 ML/MIN
--- NOTE | 2021-12-06 06:24 | NUR ---
Problems reprioritized. Patient report given, questions answered & plan of care reviewed with Betty BORJA.
[2021-12-06] MEDS: K and/or MAG REPLACEMENT MC SCH ×2 (08:00→20:00)
[2021-12-06] MEDS: loratadine 10mg tablet PO SCH (08:04)
[2021-12-06] MEDS: potassium chloride 8mEq ER tablet PO SCH (08:04)
[2021-12-06] MEDS: thiamine 100mg tablet PO SCH (08:04)
[2021-12-06] MEDS: pregabalin 75mg capsule PO SCH ×3 (08:04→20:23)
[2021-12-06] MEDS: metoprolol tartrate 50mg tablet PO SCH ×2 (08:04→16:37)
[2021-12-06] MEDS: docusate sod 100mg capsule PO SCH ×2 (08:04→20:24)
[2021-12-06] MEDS: furosemide 40mg/4ml inj IV SCH ×2 (08:04→10:52)
[2021-12-06] MEDS: pregabalin 25mg capsule PO SCH ×3 (08:04→20:23)
[2021-12-06] MEDS: enoxaparin 40mg/0.4ml syringe SUBCUT SCH (08:05)
[2021-12-06] MEDS: folic acid 1mg tablet PO SCH (08:05)
[2021-12-06] MEDS: mineral oil/petrolatum, white cream 113gm jar TP SCH ×2 (08:14→20:24)
--- NOTE | 2021-12-06 08:53 | NUR ---
Initial: Pt admitted w/ BLE cellulitis, chronic lymphedema, and CHF per EMR. Per WOC pt has unstageable pressure injury to R heel and full thickness traumatic injury to L foot. Pt on Regular diet w/ 100% intake of meals though only partially meeting protein needs. Pt could benefit from Jose C smoothies BID for wound healing as well as double protein BID. LBM 8/ receiving routine colace. Will continue to monitor. Recs: 1. Continue Regular diet as tolerated 2. Double protein BIDBD 3. Jose C Smoothies BIDLD; pending MD verification 4. Bowel care per rx 5. Weekly wts Addendum: 12/06/21 at [address] Amended: Links added.
--- NOTE | 2021-12-06 09:09 | NUR ---
Page to PICC RN> [phone] Gabby White: when available could someone take a look at getting a PIV or extended on this patient? tamanna
[2021-12-06 10:00] VITALS: BP 93/43
[2021-12-06] MEDS: vancomycin/NS 1 GM ADD-VANTAGE 250 ML IV SCH ×2 (10:50→22:11)
[2021-12-06] MEDS: JUVEN Smoothie Arginine/Glut./Ca2+Bmb (Juven 19.3pkt) 240ml cup PO SCH (12:30)
[2021-12-06 18:00] VITALS: BP 114/60
--- NOTE | 2021-12-06 18:15 | NUR ---
Problems reprioritized. Patient report given, questions answered & plan of care reviewed with JONH Lennon.
[2021-12-06 22:00] VITALS: BP 91/46
[2021-12-07] MEDS: ipratropium 0.5 MG/2.5ML nebule IH SCH ×4 (02:00→20:00)
[2021-12-07] MEDS: oxyCODONE IR 5mg (immed. release) tablet PO PRN ×3 (05:30→20:59)
--- NOTE | 2021-12-07 06:29 | NUR ---
Problems reprioritized. Patient report given, questions answered & plan of care reviewed with Betty BORJA.
[2021-12-07 07:10] VITALS: BP 101/53
[2021-12-07] MEDS: metoprolol tartrate 50mg tablet PO SCH ×2 (07:30→17:06)
[2021-12-07 07:57] LABS: BASOPHILS % (AUTO) 0.6 % (0-1); EOSINOPHILS # (AUTO) 0.2 X10'3 (0-0.9); EOSINOPHILS % (AUTO) 4.5 % (0-6); HEMATOCRIT 32.7 % (42.0-52.0); HEMOGLOBIN 11.1 g/dl (14.0-17.9); LYMPHOCYTES # (AUTO) 1.4 X10'3 (1.1-4.8); LYMPHOCYTES % (AUTO) 27.3 % (21-51); MEAN CORPUSCULAR HEMOGLOBIN 31.5 PG (27.0-31.0); MEAN CORPUSCULAR HGB CONC 33.9 g/dL (33.0-36.5); MEAN CORPUSCULAR VOLUME 92.8 FL (78-98); MEAN PLATELET VOLUME 8.1 FL (7.4-10.4); MONOCYTES # (AUTO) 0.6 X10'3 (0-0.9); MONOCYTES % (AUTO) 10.5 % (2-12); NEUTROPHILS % (AUTO) 57.1 % (42-75); PLATELET COUNT 182 X10'3 (140-440); RED BLOOD COUNT 3.52 X10'6 (4.70-6.10); RED CELL DISTRIBUTION WIDTH 14.3 % (11.5-14.5); WHITE BLOOD COUNT 5.2 X10'3 (4.5-11.0)
[2021-12-07] MEDS: K and/or MAG REPLACEMENT MC SCH ×2 (08:00→20:00)
[2021-12-07 08:11] LABS: ALANINE AMINOTRANSFERASE 26 U/L (12-78); ALBUMIN/GLOBULIN RATIO 0.5 (1.1-1.5); ALKALINE PHOSPHATASE 61 IU/L (46-116); ANION GAP 8 (8-16); ASPARTATE AMINO TRANSFERASE 80 U/L (10-37); BLOOD UREA NITROGEN 11 MG/DL (7-18); BUN/CREATININE RATIO 9.5 (5.4-32.0); CALCIUM 8.2 MG/DL (8.5-10.1); CHLORIDE 100 MMOL/L (99-107); CREATININE 1.16 MG/DL (0.60-1.10); GLUCOSE 79 MG/DL (70-104); POTASSIUM 3.5 MMOL/L (3.5-5.1); SODIUM 137 MMOL/L (135-145); TOTAL CARBON DIOXIDE 29.3 MMOL/L (24-32); TOTAL PROTEIN 6.4 G/DL (6.4-8.2); eGFR 64 ML/MIN
[2021-12-07] MEDS: potassium chloride 8mEq ER tablet PO SCH (08:43)
[2021-12-07] MEDS: pregabalin 25mg capsule PO SCH ×3 (08:43→21:00)
[2021-12-07] MEDS: pregabalin 75mg capsule PO SCH ×3 (08:44→20:59)
[2021-12-07] MEDS: thiamine 100mg tablet PO SCH (08:44)
[2021-12-07] MEDS: folic acid 1mg tablet PO SCH (08:44)
[2021-12-07] MEDS: furosemide 40mg/4ml inj IV SCH (08:44)
[2021-12-07] MEDS: docusate sod 100mg capsule PO SCH ×2 (08:44→21:00)
[2021-12-07] MEDS: loratadine 10mg tablet PO SCH (08:44)
[2021-12-07] MEDS: benzonatate 100mg capsule PO SCH ×2 (08:44→17:06)
[2021-12-07] MEDS: mineral oil/petrolatum, white cream 113gm jar TP SCH ×2 (08:45→21:00)
[2021-12-07] MEDS: enoxaparin 40mg/0.4ml syringe SUBCUT SCH (08:45)
[2021-12-07 10:00] VITALS: BP 100/52
[2021-12-07] MEDS: vancomycin/NS 1 GM ADD-VANTAGE 250 ML IV SCH ×2 (11:07→22:28)
--- NOTE | 2021-12-07 14:17 | NUR ---
PRESSURE ULCER EDUCATION: DEFINITION: A pressure ulcer is an area of skin that breaks down when you stay in one position too long. The constant pressure against the skin reduces the blood flow to that area and the affected tissue dies. CAUSES: "Being bedridden or in a wheelchair "Fragile skin "Having a chronic condition, such as diabetes or vascular disease "Inability to move certain parts of your body without assistance "Older age "Incontinence of urine or stool SYMPTOMS: "A reddened area that DOES NOT turn white when pressed on - this can be the beginning of a pressure ulcer "A blister, deep sore or a crater - these can be advanced pressure ulcers FIRST AID: "Relieve the pressure on this area "Keep the area clean and dry "Call your primary doctor if you see any of the above symptoms "DO NOT massage the area "DO NOT use a donut shaped or ring shaped pillow- these actually interfere with the blood flow and cause complications PREVENTION: "Check for pressure ulcers everyday "Change position at least every two hours to relieve pressure "Use items that help relieve pressure- pillows, sheepskin, foam padding, and powders. "Keep skin clean and dry "Eat healthy well balanced meals "Exercise daily IF YOU SEE ANY OF THESE SYMPTOMS WHILE IN THE HOSPITAL - TELL YOUR NURSE IMMEDIATELY. IF YOU SEE ANY OF THESE SYMPTOMS WHILE AT HOME OR HAVE ANY QUESTIONS OR CONCERNS ABOUT PRESSURE ULCERS - CALL YOUR PRIMARY DOCTOR IMMEDIATELY. Addendum: 12/07/21 at 1419 by Raysa Zamora LVN Amended: Links added.
--- NOTE | 2021-12-07 17:30 | NUR ---
Message: [id number] Gabby White: Nursing human services supervisor is wanting this patient to come off tele monitoring. no significant events. patient running SR with BBB since he's been here. eva petit [phone] Transaction number: [id number]
[2021-12-07 18:00] VITALS: BP 100/51
--- NOTE | 2021-12-07 18:24 | NUR ---
Problems reprioritized. Patient report given, questions answered & plan of care reviewed with JONH Tabares.
[2021-12-07 22:00] VITALS: BP 121/60
[2021-12-08] MEDS: benzonatate 100mg capsule PO SCH ×4 (00:23→23:04)
[2021-12-08] MEDS: ipratropium 0.5 MG/2.5ML nebule IH SCH ×4 (02:00→19:37)
[2021-12-08 05:00] VITALS: BP 125/63
[2021-12-08] MEDS: oxyCODONE IR 5mg (immed. release) tablet PO PRN ×3 (05:49→18:52)
--- NOTE | 2021-12-08 06:44 | NUR ---
Problems reprioritized. Patient report given, questions answered & plan of care reviewed with STIVEN BORJA.
[2021-12-08] MEDS: K and/or MAG REPLACEMENT MC SCH ×2 (07:20→20:00)
[2021-12-08] MEDS: folic acid 1mg tablet PO SCH (09:15)
[2021-12-08] MEDS: loratadine 10mg tablet PO SCH (09:16)
[2021-12-08] MEDS: pregabalin 25mg capsule PO SCH ×3 (09:16→20:11)
[2021-12-08] MEDS: pregabalin 75mg capsule PO SCH ×3 (09:16→20:11)
[2021-12-08] MEDS: potassium chloride 8mEq ER tablet PO SCH (09:18)
[2021-12-08] MEDS: docusate sod 100mg capsule PO SCH ×2 (09:18→20:11)
[2021-12-08] MEDS: metoprolol tartrate 50mg tablet PO SCH ×2 (09:18→16:46)
[2021-12-08] MEDS: thiamine 100mg tablet PO SCH (09:19)
[2021-12-08] MEDS: enoxaparin 40mg/0.4ml syringe SUBCUT SCH (09:20)
[2021-12-08] MEDS: furosemide 40mg/4ml inj IV SCH (09:20)
[2021-12-08] MEDS: mineral oil/petrolatum, white cream 113gm jar TP SCH ×2 (09:28→20:11)
[2021-12-08] MEDS: vancomycin/NS 1 GM ADD-VANTAGE 250 ML IV SCH ×2 (09:29→23:04)
[2021-12-08 10:00] VITALS: BP 125/63
[2021-12-08] MEDS: JUVEN Smoothie Arginine/Glut./Ca2+Bmb (Juven 19.3pkt) 240ml cup PO SCH ×4 (12:30→17:57)
[2021-12-08 17:00] VITALS: BP 102/66
--- NOTE | 2021-12-08 18:48 | NUR ---
Patient in room ORTHO 4013. I have received report from Serenity BORJA and had the opportunity to ask questions and assume patient care.
--- NOTE | 2021-12-08 18:48 | NUR ---
Report given to Shakira BORJA, pt ate dinner, resting comfortably at this time.
[2021-12-08 22:00] VITALS: BP 119/56
[2021-12-09] MEDS: oxyCODONE IR 5mg (immed. release) tablet PO PRN ×4 (01:20→22:32)
[2021-12-09] MEDS: ipratropium 0.5 MG/2.5ML nebule IH SCH ×4 (02:00→20:00)
[2021-12-09 06:00] VITALS: BP 109/60
--- NOTE | 2021-12-09 06:35 | NUR ---
Problems reprioritized. Patient report given, questions answered & plan of care reviewed with Serenity BORJA.
[2021-12-09 07:27] LABS: ALANINE AMINOTRANSFERASE 26 U/L (12-78); ALBUMIN 1.9 G/DL (3.4-5.0); ALBUMIN/GLOBULIN RATIO 0.4 (1.1-1.5); ALKALINE PHOSPHATASE 61 IU/L (46-116); ANION GAP 10 (8-16); ASPARTATE AMINO TRANSFERASE 60 U/L (10-37); BILIRUBIN,TOTAL 0.6 MG/DL (0.1-1.0); BLOOD UREA NITROGEN 16 MG/DL (7-18); BUN/CREATININE RATIO 14.2 (5.4-32.0); CALCIUM 8.2 MG/DL (8.5-10.1); CHLORIDE 102 MMOL/L (99-107); CREATININE 1.13 MG/DL (0.60-1.10); GLUCOSE 77 MG/DL (70-104); POTASSIUM 3.3 MMOL/L (3.5-5.1); SODIUM 140 MMOL/L (135-145); TOTAL CARBON DIOXIDE 28.4 MMOL/L (24-32); TOTAL PROTEIN 6.2 G/DL (6.4-8.2); eGFR 66 ML/MIN
[2021-12-09] MEDS: enoxaparin 40mg/0.4ml syringe SUBCUT SCH (08:00)
[2021-12-09] MEDS ORDERED: magnesium Cl slow-release 64mg tablet PO PRN (08:05)
[2021-12-09] MEDS ORDERED: magnesium 2GM in 50ml NS 50 ML IV PRN (08:05)
[2021-12-09] MEDS ORDERED: potassium CL 10mEq/100ml bag 100 ML IV PRN (08:05)
[2021-12-09] MEDS ORDERED: magnesium 4gm in 100ml NS 100 ML IV PRN (08:05)
[2021-12-09] MEDS ORDERED: potassium Cl 20 mEq SR tablet PO PRN (08:05)
[2021-12-09] MEDS: pregabalin 25mg capsule PO SCH ×3 (08:50→20:32)
[2021-12-09] MEDS: benzonatate 100mg capsule PO SCH ×2 (08:50→17:03)
[2021-12-09] MEDS: docusate sod 100mg capsule PO SCH ×2 (08:51→20:32)
[2021-12-09] MEDS: potassium chloride 8mEq ER tablet PO SCH (08:51)
[2021-12-09] MEDS: folic acid 1mg tablet PO SCH (08:51)
[2021-12-09] MEDS: pregabalin 75mg capsule PO SCH ×3 (08:51→20:32)
[2021-12-09] MEDS: thiamine 100mg tablet PO SCH (08:51)
[2021-12-09] MEDS: potassium Cl 20 mEq SR tablet PO PRN ×3 (08:51→22:31)
[2021-12-09] MEDS: loratadine 10mg tablet PO SCH (08:51)
[2021-12-09] MEDS: mineral oil/petrolatum, white cream 113gm jar TP SCH ×2 (08:52→20:00)
[2021-12-09] MEDS: furosemide 40mg/4ml inj IV SCH (08:52)
[2021-12-09] MEDS: K and/or MAG REPLACEMENT MC SCH ×2 (08:52→20:00)
[2021-12-09] MEDS: metoprolol tartrate 50mg tablet PO SCH ×2 (08:55→17:02)
[2021-12-09 10:00] VITALS: BP 113/62
[2021-12-09] MEDS: vancomycin/NS 1 GM ADD-VANTAGE 250 ML IV SCH ×2 (10:59→22:31)
[2021-12-09] MEDS: JUVEN Smoothie Arginine/Glut./Ca2+Bmb (Juven 19.3pkt) 240ml cup PO SCH ×2 (12:30→17:35)
[2021-12-09 18:00] VITALS: BP 104/68
--- NOTE | 2021-12-09 18:36 | NUR ---
Patient in room ORTHO 4013. I have received report from JONH Benton and had the opportunity to ask questions and assume patient care.
--- NOTE | 2021-12-09 18:59 | NUR ---
Report given to Jennifer HASSAN, patient ate dinner and is resting comfortably at this time.
[2021-12-09 22:00] VITALS: BP 115/52
[2021-12-10] MEDS: ipratropium 0.5 MG/2.5ML nebule IH SCH ×4 (02:00→20:00)
--- NOTE | 2021-12-10 03:58 | NUR ---
AGREE WITH SOFT WORK WRAPPER EXAMINER PHYSICAL ASSESSMENT CHARTED
[2021-12-10] MEDS: oxyCODONE IR 5mg (immed. release) tablet PO PRN ×3 (05:13→18:28)
[2021-12-10 06:00] VITALS: BP 102/50
--- NOTE | 2021-12-10 06:17 | NUR ---
Problems reprioritized. Patient report given, questions answered & plan of care reviewed with JONH Rangel.
[2021-12-10] MEDS: K and/or MAG REPLACEMENT MC SCH ×2 (07:30→20:00)
[2021-12-10] MEDS: folic acid 1mg tablet PO SCH (08:51)
[2021-12-10] MEDS: furosemide 40mg/4ml inj IV SCH (08:51)
[2021-12-10] MEDS: pregabalin 75mg capsule PO SCH ×3 (08:53→21:46)
[2021-12-10] MEDS: benzonatate 100mg capsule PO SCH ×3 (08:53→18:24)
[2021-12-10] MEDS: loratadine 10mg tablet PO SCH (08:53)
[2021-12-10] MEDS: metoprolol tartrate 50mg tablet PO SCH ×2 (08:54→18:27)
[2021-12-10] MEDS: docusate sod 100mg capsule PO SCH ×2 (08:54→21:46)
[2021-12-10] MEDS: potassium chloride 8mEq ER tablet PO SCH (08:54)
[2021-12-10] MEDS: pregabalin 25mg capsule PO SCH ×3 (08:54→21:46)
[2021-12-10] MEDS: thiamine 100mg tablet PO SCH (08:54)
[2021-12-10] MEDS: mineral oil/petrolatum, white cream 113gm jar TP SCH ×2 (08:55→21:47)
[2021-12-10] MEDS ORDERED: VANCOMYCIN LEVEL IV ONE (09:30)
[2021-12-10 10:00] VITALS: BP 103/57
[2021-12-10 10:48] LABS: ALANINE AMINOTRANSFERASE 26 U/L (12-78); ALBUMIN 1.9 G/DL (3.4-5.0); ALBUMIN/GLOBULIN RATIO 0.4 (1.1-1.5); ALKALINE PHOSPHATASE 51 IU/L (46-116); ANION GAP 7 (8-16); ASPARTATE AMINO TRANSFERASE 51 U/L (10-37); BILIRUBIN,TOTAL 0.8 MG/DL (0.1-1.0); BLOOD UREA NITROGEN 18 MG/DL (7-18); BUN/CREATININE RATIO 15.8 (5.4-32.0); CALCIUM 8.2 MG/DL (8.5-10.1); CHLORIDE 102 MMOL/L (99-107); CREATININE 1.14 MG/DL (0.60-1.10); GLUCOSE 83 MG/DL (70-104); POTASSIUM 3.5 MMOL/L (3.5-5.1); SODIUM 138 MMOL/L (135-145); TOTAL CARBON DIOXIDE 29.1 MMOL/L (24-32); TOTAL PROTEIN 6.4 G/DL (6.4-8.2); eGFR 66 ML/MIN
[2021-12-10] MEDS: VANCOMYCIN 750MG IV in NS 250 ML IV SCH ×2 (11:30→23:30)
[2021-12-10] MEDS: JUVEN Smoothie Arginine/Glut./Ca2+Bmb (Juven 19.3pkt) 240ml cup PO SCH ×2 (12:30→18:30)
--- NOTE | 2021-12-10 18:20 | NUR ---
Report to July RN
[2021-12-10] MEDS: enoxaparin 40mg/0.4ml syringe SUBCUT SCH (18:26)
[2021-12-10 18:30] VITALS: BP 102/63
[2021-12-10 22:00] VITALS: BP 116/59
[2021-12-11] MEDS: oxyCODONE IR 5mg (immed. release) tablet PO PRN ×5 (00:40→21:09)
[2021-12-11] MEDS: ipratropium 0.5 MG/2.5ML nebule IH SCH ×4 (03:36→20:00)
[2021-12-11] MEDS: VANCOMYCIN 750MG IV in NS 250 ML IV SCH ×2 (03:40→20:08)
[2021-12-11 06:32] LABS: ALANINE AMINOTRANSFERASE 24 U/L (12-78); ALBUMIN 1.9 G/DL (3.4-5.0); ALBUMIN/GLOBULIN RATIO 0.4 (1.1-1.5); ALKALINE PHOSPHATASE 47 IU/L (46-116); ANION GAP 8 (8-16); ASPARTATE AMINO TRANSFERASE 44 U/L (10-37); BILIRUBIN,TOTAL 0.8 MG/DL (0.1-1.0); BLOOD UREA NITROGEN 19 MG/DL (7-18); BUN/CREATININE RATIO 13.9 (5.4-32.0); CHLORIDE 104 MMOL/L (99-107); CREATININE 1.37 MG/DL (0.60-1.10); GLUCOSE 85 MG/DL (70-104); POTASSIUM 3.6 MMOL/L (3.5-5.1); SODIUM 141 MMOL/L (135-145); TOTAL CARBON DIOXIDE 28.6 MMOL/L (24-32); TOTAL PROTEIN 6.2 G/DL (6.4-8.2); eGFR 53 ML/MIN
[2021-12-11 06:47] VITALS: BP 94/46
--- NOTE | 2021-12-11 06:53 | NUR ---
Patient in room ORTHO 4013. I have received report from Mayte RN and had the opportunity to ask questions and assume patient care.
[2021-12-11] MEDS: K and/or MAG REPLACEMENT MC SCH ×2 (08:00→20:00)
[2021-12-11] MEDS: enoxaparin 40mg/0.4ml syringe SUBCUT SCH (08:00)
[2021-12-11] MEDS: pregabalin 25mg capsule PO SCH ×3 (09:38→21:09)
[2021-12-11] MEDS: docusate sod 100mg capsule PO SCH ×2 (09:38→21:09)
[2021-12-11] MEDS: folic acid 1mg tablet PO SCH (09:38)
[2021-12-11] MEDS: pregabalin 75mg capsule PO SCH ×3 (09:38→21:09)
--- NOTE | 2021-12-11 09:38 | NUR ---
Reassessment: Pt continues eating well on regular diet, documented with mostly 75-100% PO intake while receiving double protein BIDBD. Pt now receiving a Jose C smoothie BIDLD of which pt documented with 100% PO intake of. Overall pt meeting estimated nutrient needs. LBM 12/09, receiving routine bowel care with PRN bowel care available. No further nutrition intervention implemented at this time. Will continue to follow. Recommendations: 1. Continue regular diet 2. Double protein BIDBD 3. Jose C Smoothies BIDLD 4. Routine bowel care 5. Daily scaled weights per rx Addendum: 12/11/21 at [address] Amended: Links added.
[2021-12-11] MEDS: metoprolol tartrate 50mg tablet PO SCH ×2 (09:39→17:45)
[2021-12-11] MEDS: potassium chloride 8mEq ER tablet PO SCH (09:39)
[2021-12-11] MEDS: loratadine 10mg tablet PO SCH (09:39)
[2021-12-11] MEDS: thiamine 100mg tablet PO SCH (09:40)
[2021-12-11] MEDS: benzonatate 100mg capsule PO SCH ×3 (09:40→16:31)
[2021-12-11] MEDS: furosemide 40mg/4ml inj IV SCH (09:42)
[2021-12-11] MEDS: mineral oil/petrolatum, white cream 113gm jar TP SCH ×2 (09:47→20:00)
[2021-12-11 11:17] VITALS: BP 108/62
[2021-12-11] MEDS: JUVEN Smoothie Arginine/Glut./Ca2+Bmb (Juven 19.3pkt) 240ml cup PO SCH ×2 (13:20→17:45)
--- NOTE | 2021-12-11 16:08 | NUR ---
Tr [phone] re: [id number] Cindy, Spoke to Dr. Adams about PO antibiotics and he is looking into his chart to see if we have options for PO at this time.
[2021-12-11 18:30] VITALS: BP 105/60
--- NOTE | 2021-12-11 18:43 | NUR ---
Problems reprioritized. Patient report given, questions answered & plan of care reviewed with Mayte BORJA.
[2021-12-11 22:00] VITALS: BP 105/49
[2021-12-12] MEDS: ipratropium 0.5 MG/2.5ML nebule IH SCH ×4 (03:22→19:52)
[2021-12-12] MEDS: oxyCODONE IR 5mg (immed. release) tablet PO PRN ×4 (03:30→21:42)
[2021-12-12 06:19] LABS: ALANINE AMINOTRANSFERASE 23 U/L (12-78); ALBUMIN 1.8 G/DL (3.4-5.0); ALBUMIN/GLOBULIN RATIO 0.4 (1.1-1.5); ALKALINE PHOSPHATASE 58 IU/L (46-116); ANION GAP 8 (8-16); ASPARTATE AMINO TRANSFERASE 38 U/L (10-37); BILIRUBIN,TOTAL 0.6 MG/DL (0.1-1.0); BLOOD UREA NITROGEN 21 MG/DL (7-18); BUN/CREATININE RATIO 16.9 (5.4-32.0); CALCIUM 8.1 MG/DL (8.5-10.1); CHLORIDE 104 MMOL/L (99-107); CREATININE 1.24 MG/DL (0.60-1.10); GLUCOSE 95 MG/DL (70-104); POTASSIUM 3.3 MMOL/L (3.5-5.1); SODIUM 140 MMOL/L (135-145); TOTAL CARBON DIOXIDE 28.4 MMOL/L (24-32); TOTAL PROTEIN 6.1 G/DL (6.4-8.2); eGFR 59 ML/MIN
--- NOTE | 2021-12-12 07:11 | NUR ---
Patient in room ORTHO 4013. I have received report from Mayte RN and had the opportunity to ask questions and assume patient care.
[2021-12-12 07:20] VITALS: BP 104/48
[2021-12-12] MEDS: K and/or MAG REPLACEMENT MC SCH ×2 (08:00→20:00)
[2021-12-12] MEDS: potassium chloride 8mEq ER tablet PO SCH (08:02)
[2021-12-12] MEDS: pregabalin 25mg capsule PO SCH ×3 (08:02→21:42)
[2021-12-12] MEDS: pregabalin 75mg capsule PO SCH ×3 (08:02→21:42)
[2021-12-12] MEDS: benzonatate 100mg capsule PO SCH ×3 (08:03→15:51)
[2021-12-12] MEDS: docusate sod 100mg capsule PO SCH ×2 (08:03→21:43)
[2021-12-12] MEDS: loratadine 10mg tablet PO SCH (08:03)
[2021-12-12] MEDS: thiamine 100mg tablet PO SCH (08:03)
[2021-12-12] MEDS: metoprolol tartrate 50mg tablet PO SCH ×2 (08:03→17:30)
[2021-12-12] MEDS: folic acid 1mg tablet PO SCH (08:04)
[2021-12-12] MEDS: enoxaparin 40mg/0.4ml syringe SUBCUT SCH (08:05)
[2021-12-12] MEDS: mineral oil/petrolatum, white cream 113gm jar TP SCH ×2 (08:06→20:00)
[2021-12-12] MEDS: VANCOMYCIN 750MG IV in NS 250 ML IV SCH ×2 (08:06→21:42)
[2021-12-12] MEDS: furosemide 40mg/4ml inj IV SCH (08:06)
[2021-12-12 11:02] VITALS: BP 92/49
[2021-12-12] MEDS: JUVEN Smoothie Arginine/Glut./Ca2+Bmb (Juven 19.3pkt) 240ml cup PO SCH ×2 (12:50→18:00)
--- NOTE | 2021-12-12 15:53 | NUR ---
[facility] called by nursing to evaluate changes to the right heel unstageable pressure injury. In with the [facility] RN and primary nurse. The pt is sitting up in bed in no apparent acute distress, aware of intent and agreeable. The pt states that the wound bed stuck to his linen, he pulled it off and then walked to the bathroom unassisted. The formerly stable dry eschar appears as if was torn away. The wound bed is now primarily red, soft loosely attached black eschar distally, moderate serosanguineous drainage, mild odor with hypertrophic and edematous surrounding skin. The wound was cleansed and dressed. The pt was left in the care of his primary nurse. Addendum: 12/12/21 at 1613 by Raysa Zamora LVN Amended: Links added.
[2021-12-12] MEDS: vitamin A & D ointment-NF 1 APPLIC TUBE TP SCH (16:00)
[2021-12-12 17:32] VITALS: BP 99/48
--- NOTE | 2021-12-12 17:38 | NUR ---
Message: Tr Collins [phone] Re: [id number] Gabby White Patient BP was 98/48 with HR of 71 I did not administer patient Metoprolol, outside of range at this time. Thanks Tr.
[2021-12-12] MEDS ORDERED: potassium CL 10mEq/100ml bag 100 ML IV PRN (20:55)
[2021-12-12] MEDS ORDERED: POTASSIUM BICARB 20meq eff tab 20 MEQ TABLET.EFF PO PRN ×2 (20:55)
[2021-12-12 22:45] VITALS: BP 95/45
[2021-12-13] MEDS: ipratropium 0.5 MG/2.5ML nebule IH SCH ×2 (02:00→08:00)
[2021-12-13] MEDS: oxyCODONE IR 5mg (immed. release) tablet PO PRN ×2 (05:14→10:53)
[2021-12-13 06:00] VITALS: BP 105/51
[2021-12-13] MEDS ORDERED: VANCOMYCIN LEVEL IV ONE (07:30)
[2021-12-13] MEDS: K and/or MAG REPLACEMENT MC SCH (08:00)
[2021-12-13] MEDS ORDERED: K and/or MAG REPLACEMENT MC SCH (08:00)
[2021-12-13] MEDS: furosemide 40mg/4ml inj IV SCH (08:00)
[2021-12-13] MEDS: vitamin A & D ointment-NF 1 APPLIC TUBE TP SCH (08:00)
[2021-12-13] MEDS: enoxaparin 40mg/0.4ml syringe SUBCUT SCH (08:44)
[2021-12-13] MEDS: VANCOMYCIN 750MG IV in NS 250 ML IV SCH (08:44)
[2021-12-13] MEDS: loratadine 10mg tablet PO SCH (08:45)
[2021-12-13] MEDS: folic acid 1mg tablet PO SCH (08:45)
[2021-12-13] MEDS: thiamine 100mg tablet PO SCH (08:45)
[2021-12-13] MEDS: pregabalin 75mg capsule PO SCH ×2 (08:45→12:56)
[2021-12-13] MEDS: benzonatate 100mg capsule PO SCH ×2 (08:46)
[2021-12-13] MEDS: pregabalin 25mg capsule PO SCH ×2 (08:46→12:56)
[2021-12-13] MEDS: potassium chloride 8mEq ER tablet PO SCH (08:46)
[2021-12-13] MEDS: docusate sod 100mg capsule PO SCH (08:46)
[2021-12-13 08:47] LABS: ALANINE AMINOTRANSFERASE 21 U/L (12-78); ALBUMIN/GLOBULIN RATIO 0.5 (1.1-1.5); ALKALINE PHOSPHATASE 48 IU/L (46-116); ANION GAP 5 (8-16); ASPARTATE AMINO TRANSFERASE 41 U/L (10-37); BILIRUBIN,TOTAL 0.8 MG/DL (0.1-1.0); BLOOD UREA NITROGEN 20 MG/DL (7-18); BUN/CREATININE RATIO 17.9 (5.4-32.0); CALCIUM 8.3 MG/DL (8.5-10.1); CHLORIDE 105 MMOL/L (99-107); CREATININE 1.12 MG/DL (0.60-1.10); GLUCOSE 86 MG/DL (70-104); POTASSIUM 3.5 MMOL/L (3.5-5.1); SODIUM 141 MMOL/L (135-145); TOTAL CARBON DIOXIDE 31.3 MMOL/L (24-32); TOTAL PROTEIN 6.4 G/DL (6.4-8.2); eGFR 67 ML/MIN
[2021-12-13] MEDS: metoprolol tartrate 50mg tablet PO SCH (08:47)
[2021-12-13 08:55] LABS: VANCOMYCIN,TROUGH 21.2 UG/ML (6.0-14.0)
[2021-12-13 10:00] VITALS: BP 100/48
[2021-12-13] MEDS: mineral oil/petrolatum, white cream 113gm jar TP SCH (10:55)
[2021-12-13] MEDS: JUVEN Smoothie Arginine/Glut./Ca2+Bmb (Juven 19.3pkt) 240ml cup PO SCH (12:57)
[2021-12-13] MEDS ORDERED: AMOX-580 PO (13:28)
[2021-12-13] MEDS ORDERED: LACT1CAP26 PO (13:28)
== END 2021-12-13 14:25 | disposition home health service (06) | DRG 720 ==
LOC: ER 17:15 → ED HOLD 22:32 → ORTHO 4S 12-03 05:20
PROVIDERS: ADMIT Internal Medicine; ATTEND Internal Medicine
DX: A41.9 Sepsis, unspecified organism (principal); I50.30 Unspecified diastolic (congestive) heart failure; E87.1 Hypo-osmolality and hyponatremia; I11.0 Hypertensive heart disease with heart failure; D64.9 Anemia, unspecified; E66.01 Morbid (severe) obesity due to excess calories; E78.00 Pure hypercholesterolemia, unspecified; E87.6 Hypokalemia; Z20.822 Contact with and (suspected) exposure to COVID-19; F17.210 Nicotine dependence, cigarettes, uncomplicated; G62.9 Polyneuropathy, unspecified; I25.10 Atherosclerotic heart disease of native coronary artery without angina pectoris; M14.672 Charcot's joint, left ankle and foot; L03.115 Cellulitis of right lower limb; L03.116 Cellulitis of left lower limb; I87.2 Venous insufficiency (chronic) (peripheral); I89.0 Lymphedema, not elsewhere classified; J43.9 Emphysema, unspecified; L97.419 Non-pressure chronic ulcer of right heel and midfoot with unspecified severity; L97.429 Non-pressure chronic ulcer of left heel and midfoot with unspecified severity; Z98.42 Cataract extraction status, left eye; Z79.899 Other long term (current) drug therapy; Z98.41 Cataract extraction status, right eye
CPT/HCPCS: 36415; 71045; 73620; 73718; 80053; 80061; 80202; 80305; 83036; 83605; 83735; 83880; 84132; 84145; 85007; 85025; 87040; 87081; 87811; 93005; 93306; 93925; 93970; 94640; 94664; 94760; 96374; 97110; 97161; 97530; 99285; A4615; A4649; A6196; A6213; A6223; A6250; A6446; A6449; G0378; J1650; J1940; J3370; J7050

== ENCOUNTER 2022-02-14 16:10 | Inpatient (IN) | payer MEDICAID ==
[~2022-02-14] VITALS: Ht 188 cm; Wt 120.5 kg
[~2022-02-14 16:10] MED LIST changes: +ATRIN IH; -CLIN-97 PO; +FOLI1TAB27 PO; +LACT1CAP26 PO; -PANT40TA54 PO; -POTA8CAP20 PO; +POTA8TAB69 PO; +PREG100C55 PO; -PREG50CA PO; +THIA100T66 PO; -folic acid tablet PO; -thiamine tablet PO
[2022-02-14] MEDS ORDERED: normal saline 1000ML IV soln IV ONE (16:45)
[2022-02-14] MEDS ORDERED: piperacillin/tazo 3.375gm/50ml 50 ML IV ONE (16:45)
[2022-02-14] MEDS ORDERED: vancomycin/NS 1 GM ADD-VANTAGE 250 ML IV ONE (16:47)
[2022-02-14 17:35] LABS: BASOPHILS # (AUTO) 0.1 X10'3 (0-0.2); BASOPHILS % (AUTO) 1.1 % (0-1); EOSINOPHILS # (AUTO) 0.6 X10'3 (0-0.9); HEMATOCRIT 33.5 % (42.0-52.0); HEMOGLOBIN 11.4 g/dl (14.0-17.9); LYMPHOCYTES # (AUTO) 1.4 X10'3 (1.1-4.8); LYMPHOCYTES % (AUTO) 14.3 % (21-51); MEAN CORPUSCULAR HEMOGLOBIN 30.8 PG (27.0-31.0); MEAN CORPUSCULAR HGB CONC 34.1 g/dL (33.0-36.5); MEAN CORPUSCULAR VOLUME 90.4 FL (78-98); MEAN PLATELET VOLUME 8.1 FL (7.4-10.4); MONOCYTES # (AUTO) 0.9 X10'3 (0-0.9); MONOCYTES % (AUTO) 9.2 % (2-12); NEUTROPHILS # (AUTO) 6.9 X10'3 (1.8-7.7); NEUTROPHILS % (AUTO) 69.4 % (42-75); PLATELET COUNT 163 X10'3 (140-440); RED CELL DISTRIBUTION WIDTH 14.6 % (11.5-14.5); WHITE BLOOD COUNT 9.9 X10'3 (4.5-11.0)
[2022-02-14 17:55] LABS: ALANINE AMINOTRANSFERASE 13 U/L (12-78); ALBUMIN 2.8 G/DL (3.4-5.0); ALBUMIN/GLOBULIN RATIO 0.5 (1.1-1.5); ALKALINE PHOSPHATASE 52 IU/L (46-116); ANION GAP 9 (8-16); ASPARTATE AMINO TRANSFERASE 37 U/L (10-37); BLOOD UREA NITROGEN 12 MG/DL (7-18); BUN/CREATININE RATIO 10.2 (5.4-32.0); CALCIUM 8.9 MG/DL (8.5-10.1); CHLORIDE 101 MMOL/L (99-107); CREATININE 1.18 MG/DL (0.60-1.10); GLUCOSE 113 MG/DL (70-104); MAGNESIUM 1.8 MG/DL (1.5-2.4); SODIUM 136 MMOL/L (135-145); TOTAL CARBON DIOXIDE 26.5 MMOL/L (24-32); eGFR 63 ML/MIN
[2022-02-14 18:01] LABS: ETHANOL < 0.010 GM/DL (0.0-0.010)
[2022-02-14 18:02] LABS: POTASSIUM 2.6 MMOL/L (3.5-5.1)
[2022-02-15 03:47] LABS: COLOR,URINE YELLOW (Yellow); GLUCOSE, URINE NEGATIVE (Neg); KETONES,URINE NEGATIVE (Neg); LEUKOCYTE ESTERASE ,URINE NEGATIVE (Neg); NITRITES, URINE NEGATIVE (Neg); OCCULT BLOOD,URINE LARGE (Neg); PH,URINE 5.5 (4.8-8.0); PROTEIN,URINE NEGATIVE (Neg); UROBILINOGEN,URINE 0.2 E.U/dL (0.2-1.0)
[2022-02-15 03:53] LABS: UA COLLECTION TYPE URINAL
[2022-02-15 03:57] LABS: BACTERIA,URINE 1+ /HPF (Neg); MUCUS STRANDS FEW /LPF (Neg); RBC,URINE 20-50 /HPF (0-2); SQUAMOUS EPITHELIAL CELL,UR FEW /LPF (FEW)
[2022-02-15 03:58] LABS: YEAST FEW /HPF (NEGATIVE)
[2022-02-15 05:17] LABS: CLARITY,URINE SLIGHTLY CLOUDY (Clear)
[2022-02-15] MEDS ORDERED: POTASSIUM BICARB 20meq eff tab 20 MEQ TABLET.EFF PO ONE (05:55)
[2022-02-15] MEDS ORDERED: potassium Cl 10 mEq/100mL bag IV ONE (05:55)
[2022-02-15] MEDS ORDERED: ondansetron/PF 4mg/2ml inj IV ONE (05:55)
[2022-02-15] MEDS ORDERED: ondansetron/PF 4mg/2ml inj IV PRN (07:35)
[2022-02-15] MEDS ORDERED: magnesium Cl slow-release 64mg tablet PO PRN (07:35)
[2022-02-15] MEDS ORDERED: potassium CL 10mEq/100ml bag 100 ML IV PRN (07:35)
[2022-02-15] MEDS ORDERED: acetaminophen 325mg tablet PO PRN ×2 (07:35)
[2022-02-15] MEDS ORDERED: HYDROmorphone/PF 0.2 MG/ML SYRINGE IV PRN (07:35)
[2022-02-15] MEDS: potassium Cl 20mEq in NS 1,000 ML IV SCH ×2 (07:35→19:36)
[2022-02-15] MEDS ORDERED: insulin Lispro (HumaLOG) vial - multi-dose SQ SCH (07:35)
[2022-02-15] MEDS ORDERED: mag hydrox/Alum hydrox/simeth 30ml oral suspension PO PRN (07:35)
[2022-02-15] MEDS ORDERED: DEXTROSE 15 GM of carb/4 tabs (each vial/BOTTLE has 4 tablets) PO PRN ×2 (07:35)
[2022-02-15] MEDS ORDERED: MESSAGE TO PHARMACY PO ONE (07:35)
[2022-02-15] MEDS ORDERED: magnesium 2GM in 50ml NS 50 ML IV PRN (07:35)
[2022-02-15] MEDS ORDERED: dextrose 50%-water 50ml dispensing syringe IV PRN ×2 (07:35)
[2022-02-15] MEDS ORDERED: magnesium hydroxide 30ml (MOM) UD suspension PO PRN (07:35)
[2022-02-15] MEDS ORDERED: POTASSIUM BICARB 20meq eff tab 20 MEQ TABLET.EFF PO PRN (07:35)
[2022-02-15] MEDS ORDERED: magnesium 4gm in 100ml NS 100 ML IV PRN (07:35)
[2022-02-15] MEDS ORDERED: glucagon, human recombinant 1mg kit SUBCUT PRN (07:35)
[2022-02-15] MEDS: K and/or MAG REPLACEMENT MC SCH ×2 (08:00→20:00)
[2022-02-15] MEDS: docusate sod 100mg capsule PO SCH ×2 (08:00→19:35)
[2022-02-15 08:23] LABS: MAGNESIUM 1.9 MG/DL (1.5-2.4)
--- NOTE | 2022-02-15 08:52 | NUR ---
PT PLACED ON HOSPITAL BED.
[2022-02-15] MEDS: HYDROmorphone inj. 0.5 MG/0.5 ML DISP.SYRIN IV PRN (10:50)
--- NOTE | 2022-02-15 13:20 | NUR ---
ASSUMED CARE OF PT AT THIS TIME, VITALS WNL- C/O GENERALIZED PAIN TO BILAT LOWER EXTREMETIES, STATES HE HAS NOT RECIEVED PAIN MEDICATION TODAY- UPON REVIEW OF CHART, PT LAST PAIN MED DOSE WAS 1050- PT EDUCATED ABOUT DOSE AND TIME THAT NEXT DOSE CAN BE RECIEVED, PT STATES SEVERE PAIN BUT DRIFT BACK TO SLEEP FREQUENTLY WHILE ASSESSING. PT PROVIDED MEAL TRAY, NO FURTHER CONERNS AT THIS TIME. CONT TO MONITOR.
[2022-02-15] MEDS: HYDROcodone/acetaminophen 10/325mg tab PO PRN ×3 (15:35→23:29)
[2022-02-15] MEDS: nystatin 15 GM powder TP SCH ×2 (21:00→22:42)
[2022-02-15] MEDS ORDERED: insulin glargine (Lantus) pen - multi-dose SQ SCH (21:00)
[2022-02-15 22:00] VITALS: BP 112/61
[2022-02-15] MEDS: POTASSIUM BICARB 20meq eff tab 20 MEQ TABLET.EFF PO PRN (22:43)
--- NOTE | 2022-02-16 00:31 | NUR ---
Page Sent PAGER ID: [phone] MESSAGE: Pt. in 351 admitted kayden. meds not reconciled by , but he states that he needs his Lyrica and needs to change [place] to Oxy, as the extra Tylenol effects his liver.. this is Colleen at [phone]
[2022-02-16] MEDS: pregabalin 25mg capsule PO SCH ×3 (00:49→20:10)
--- NOTE | 2022-02-16 01:00 | NUR ---
returned call. Vini ordered and administered.
[2022-02-16] MEDS: potassium Cl 20mEq in NS 1,000 ML IV SCH ×3 (02:20→22:56)
[2022-02-16] MEDS: POTASSIUM BICARB 20meq eff tab 20 MEQ TABLET.EFF PO PRN (02:40)
[2022-02-16] MEDS: HYDROmorphone inj. 0.5 MG/0.5 ML DISP.SYRIN IV PRN (02:44)
[2022-02-16] MEDS: HYDROcodone/acetaminophen 10/325mg tab PO PRN ×4 (04:04→20:10)
[2022-02-16 06:00] VITALS: BP 113/66
--- NOTE | 2022-02-16 06:44 | NUR ---
Problems reprioritized. Patient report given, questions answered & plan of care reviewed with Trini Clemons.
[2022-02-16 06:47] LABS: BASOPHILS % (AUTO) 0.7 % (0-1); EOSINOPHILS # (AUTO) 0.3 X10'3 (0-0.9); EOSINOPHILS % (AUTO) 5.5 % (0-6); HEMATOCRIT 27.5 % (42.0-52.0); HEMOGLOBIN 9.4 g/dl (14.0-17.9); LYMPHOCYTES # (AUTO) 1.3 X10'3 (1.1-4.8); MEAN CORPUSCULAR HEMOGLOBIN 31.2 PG (27.0-31.0); MEAN CORPUSCULAR HGB CONC 34.3 g/dL (33.0-36.5); MEAN PLATELET VOLUME 8.5 FL (7.4-10.4); MONOCYTES # (AUTO) 0.5 X10'3 (0-0.9); MONOCYTES % (AUTO) 8.3 % (2-12); NEUTROPHILS # (AUTO) 3.6 X10'3 (1.8-7.7); NEUTROPHILS % (AUTO) 62.5 % (42-75); PLATELET COUNT 131 X10'3 (140-440); RED BLOOD COUNT 3.02 X10'6 (4.70-6.10); RED CELL DISTRIBUTION WIDTH 14.5 % (11.5-14.5); WHITE BLOOD COUNT 5.8 X10'3 (4.5-11.0)
[2022-02-16 06:58] LABS: ALANINE AMINOTRANSFERASE 10 U/L (12-78); ALBUMIN/GLOBULIN RATIO 0.5 (1.1-1.5); ALKALINE PHOSPHATASE 34 IU/L (46-116); ANION GAP 9 (8-16); ASPARTATE AMINO TRANSFERASE 23 U/L (10-37); BILIRUBIN,TOTAL 0.7 MG/DL (0.1-1.0); BLOOD UREA NITROGEN 7 MG/DL (7-18); BUN/CREATININE RATIO 6.6 (5.4-32.0); CALCIUM 8.3 MG/DL (8.5-10.1); CHLORIDE 108 MMOL/L (99-107); CREATININE 1.06 MG/DL (0.60-1.10); GLUCOSE 100 MG/DL (70-104); POTASSIUM 3.7 MMOL/L (3.5-5.1); SODIUM 144 MMOL/L (135-145); TOTAL CARBON DIOXIDE 26.9 MMOL/L (24-32); eGFR 71 ML/MIN
--- NOTE | 2022-02-16 07:00 | NUR ---
Patient in room THOM 351. I have received report from Colleen BORJA and had the opportunity to ask questions and assume patient care.
--- NOTE | 2022-02-16 07:41 | NUR ---
Patient refusing to have blood sugar checked. Educated patient on reason for blood sugar checks. Patient states "I'm not a diabetic. They've already poked me twice and it's been fine." Patient A1C on previous visit 12/02/21 was 5.6
[2022-02-16] MEDS: K and/or MAG REPLACEMENT MC SCH ×2 (08:00→19:28)
[2022-02-16] MEDS: docusate sod 100mg capsule PO SCH ×2 (09:07→20:10)
[2022-02-16] MEDS ORDERED: albuterol 2.5 MG/3 ML nebule NEB PRN (10:10)
--- NOTE | 2022-02-16 13:56 | NUR ---
Malnutrition Consult: Pt admit DX BLE lymphedema, PVD, hypokalemia, and bilateral feet wounds per EMR. Per [facility] note, pt w/ large R heel traumatic wound 0.2cm depth and L plantar foot neuropathic wound 1.0cm depth. Pt hx pre-diabetes A1C 5.6% noted to be on carb controlled diet PO intake pending documentation this admit. RD paged MD regarding liberalizing to heart healthy diet given A1C/hx. RD also d/w RN regarding routine thiamine, folic acid, MVI supplementation given etoh hx per EMR if physician agreeable. At minimum pt would benefit from MVI supplementation given wounds. Pt would benefit from Jose C smoothie BIDLD given wound healing needs; MD notified. Pt reports unsure wt loss hx per RN Malnutrition Screen w/ mild weakness and current reported wt consistent w/ prior bed scale wt 12/10/21 admit per EMR. Pending scaled wt this admit w/ BLE 4+ severe edema present though likely r/t DX. Pt lacks minimum malnutrition criteria at this time. LBM 02/15 per EMR. Will monitor for additional malnutrition criteria and nutrition intervention needs this admit. Rec: 1. advance to heart healthy diet; removal of carb controlled restriction A1C 5.6% 2. Jose C smoothie BIDLD for wound healing; pending physician verification in EMR 3. routine thiamine, folic acid, MVI supplementation for etoh hx/wounds 4. routine bowel care 5. scaled wt this admit; subsequent weekly wts Addendum: 02/16/22 at [address] Amended: Links added.
[2022-02-16] MEDS: nystatin 15 GM powder TP SCH ×2 (14:12→20:11)
--- NOTE | 2022-02-16 15:16 | NUR ---
Patients urine tea colored paged hospitalist, also unable to get an accurate oral or axillary temperature. Hospitalist advised not to get rectal as my increase risk of bleeding and as H&H stable will monitor for sings and symptoms of bleeding.
[2022-02-16] MEDS: metoprolol tartrate 50mg tablet PO SCH (17:23)
[2022-02-16] MEDS: JUVEN Smoothie Arginine/Glut./Ca2+Bmb (Juven 19.3pkt) 240ml cup PO SCH (17:30)
[2022-02-16 18:00] VITALS: BP 113/55
--- NOTE | 2022-02-16 18:43 | NUR ---
Problems reprioritized. Patient report given, questions answered & plan of care reviewed with RAFITA BORJA.
[2022-02-16] MEDS: ipratropium 0.5 MG/2.5ML nebule IH SCH (19:49)
[2022-02-16 22:00] VITALS: BP 117/69
[2022-02-17] MEDS: HYDROcodone/acetaminophen 10/325mg tab PO PRN ×4 (00:36→12:54)
--- NOTE | 2022-02-17 04:24 | NUR ---
Student documentation: I have reviewed and agree with all interventions, assessments performed and documented by SHAUNA Dowling.
[2022-02-17 06:00] VITALS: BP 120/73
[2022-02-17 06:29] LABS: BASOPHILS % (AUTO) 0.3 % (0-1); EOSINOPHILS # (AUTO) 0.3 X10'3 (0-0.9); EOSINOPHILS % (AUTO) 7.1 % (0-6); HEMOGLOBIN 10.2 g/dl (14.0-17.9); LYMPHOCYTES # (AUTO) 1.2 X10'3 (1.1-4.8); LYMPHOCYTES % (AUTO) 29.4 % (21-51); MEAN CORPUSCULAR HEMOGLOBIN 30.9 PG (27.0-31.0); MEAN CORPUSCULAR VOLUME 90.7 FL (78-98); MEAN PLATELET VOLUME 8.2 FL (7.4-10.4); MONOCYTES # (AUTO) 0.3 X10'3 (0-0.9); MONOCYTES % (AUTO) 7.9 % (2-12); NEUTROPHILS # (AUTO) 2.2 X10'3 (1.8-7.7); NEUTROPHILS % (AUTO) 55.3 % (42-75); PLATELET COUNT 143 X10'3 (140-440); RED CELL DISTRIBUTION WIDTH 14.8 % (11.5-14.5)
--- NOTE | 2022-02-17 06:38 | NUR ---
Problems reprioritized. Patient report given, questions answered & plan of care reviewed with JONH Murphy.
--- NOTE | 2022-02-17 06:49 | NUR ---
Patient in room THOM 351. I have received report from RAFITA BORJA and had the opportunity to ask questions and assume patient care.
[2022-02-17 07:01] LABS: ALANINE AMINOTRANSFERASE 9 U/L (12-78); ALBUMIN/GLOBULIN RATIO 0.5 (1.1-1.5); ALKALINE PHOSPHATASE 28 IU/L (46-116); ANION GAP 6 (8-16); ASPARTATE AMINO TRANSFERASE 22 U/L (10-37); BILIRUBIN,TOTAL 0.5 MG/DL (0.1-1.0); BLOOD UREA NITROGEN 9 MG/DL (7-18); CALCIUM 8.4 MG/DL (8.5-10.1); CHLORIDE 110 MMOL/L (99-107); GLUCOSE 87 MG/DL (70-104); POTASSIUM 4.2 MMOL/L (3.5-5.1); SODIUM 142 MMOL/L (135-145); TOTAL CARBON DIOXIDE 26.3 MMOL/L (24-32); TOTAL PROTEIN 5.9 G/DL (6.4-8.2); eGFR 76 ML/MIN
[2022-02-17] MEDS: K and/or MAG REPLACEMENT MC SCH ×2 (08:00→20:00)
[2022-02-17] MEDS: docusate sod 100mg capsule PO SCH ×2 (08:16→20:00)
[2022-02-17] MEDS: loratadine 10mg tablet PO SCH (08:16)
[2022-02-17] MEDS: pregabalin 25mg capsule PO SCH ×2 (08:16→21:50)
[2022-02-17] MEDS: potassium chloride 8mEq ER tablet PO SCH (08:16)
[2022-02-17] MEDS: metoprolol tartrate 50mg tablet PO SCH ×2 (08:17→17:30)
[2022-02-17] MEDS: furosemide 40mg tablet PO SCH (08:17)
[2022-02-17] MEDS: nystatin 15 GM powder TP SCH ×3 (08:20→21:51)
[2022-02-17] MEDS: ipratropium 0.5 MG/2.5ML nebule IH SCH ×2 (08:56→20:52)
[2022-02-17 10:00] VITALS: BP 105/56
[2022-02-17] MEDS: JUVEN Smoothie Arginine/Glut./Ca2+Bmb (Juven 19.3pkt) 240ml cup PO SCH ×2 (13:14→17:41)
[2022-02-17] MEDS ORDERED: ketorolac trometh. 30mg/ml inj. IV PRN (13:20)
[2022-02-17] MEDS ORDERED: vitamin A & D ointment-NF 1 APPLIC TUBE TP SCH (13:40)
[2022-02-17] MEDS: ketorolac tromethamine 15mg/ml inj. IV PRN (17:52)
[2022-02-17 18:00] VITALS: BP 117/59
--- NOTE | 2022-02-17 18:25 | NUR ---
Problems reprioritized. Patient report given, questions answered & plan of care reviewed with Vanessa, RN.
--- NOTE | 2022-02-17 18:27 | NUR ---
patient seen by Dr brooks, agreed to work with PT ambulated 50' see note. wounds to bilat feet and buttocks done, pictures in chart .Medicated for pain with good result. [facility] Shameka geriatric case manager notified. No new orders. I agree with the charting of student Mariely Gates.
[2022-02-17 22:00] VITALS: BP 136/78
[2022-02-17] MEDS: HYDROcodone/acetaminophen 5mg/325mg tablet PO PRN (22:02)
[2022-02-18 06:00] VITALS: BP 132/75
[2022-02-18 06:04] LABS: BASOPHILS % (AUTO) 1.3 % (0-1); EOSINOPHILS # (AUTO) 0.3 X10'3 (0-0.9); EOSINOPHILS % (AUTO) 8.5 % (0-6); HEMATOCRIT 30.8 % (42.0-52.0); HEMOGLOBIN 10.4 g/dl (14.0-17.9); LYMPHOCYTES # (AUTO) 1.1 X10'3 (1.1-4.8); LYMPHOCYTES % (AUTO) 33.5 % (21-51); MEAN CORPUSCULAR HEMOGLOBIN 30.5 PG (27.0-31.0); MEAN CORPUSCULAR HGB CONC 33.7 g/dL (33.0-36.5); MEAN CORPUSCULAR VOLUME 90.6 FL (78-98); MONOCYTES # (AUTO) 0.3 X10'3 (0-0.9); MONOCYTES % (AUTO) 7.6 % (2-12); NEUTROPHILS # (AUTO) 1.6 X10'3 (1.8-7.7); NEUTROPHILS % (AUTO) 49.1 % (42-75); PLATELET COUNT 155 X10'3 (140-440); RED CELL DISTRIBUTION WIDTH 14.6 % (11.5-14.5); WHITE BLOOD COUNT 3.3 X10'3 (4.5-11.0)
[2022-02-18 06:09] LABS: ALANINE AMINOTRANSFERASE 9 U/L (12-78); ALBUMIN/GLOBULIN RATIO 0.5 (1.1-1.5); ALKALINE PHOSPHATASE 31 IU/L (46-116); ANION GAP 3 (8-16); ASPARTATE AMINO TRANSFERASE 21 U/L (10-37); BILIRUBIN,TOTAL 0.5 MG/DL (0.1-1.0); BLOOD UREA NITROGEN 15 MG/DL (7-18); BUN/CREATININE RATIO 13.9 (5.4-32.0); CALCIUM 8.7 MG/DL (8.5-10.1); CHLORIDE 108 MMOL/L (99-107); CREATININE 1.08 MG/DL (0.60-1.10); GLUCOSE 90 MG/DL (70-104); POTASSIUM 4.1 MMOL/L (3.5-5.1); SODIUM 140 MMOL/L (135-145); TOTAL CARBON DIOXIDE 28.8 MMOL/L (24-32); eGFR 70 ML/MIN
--- NOTE | 2022-02-18 06:53 | NUR ---
Patient in room THOM 351. I have received report from Pat RN and had the opportunity to ask questions and assume patient care.
[2022-02-18] MEDS: furosemide 40mg tablet PO SCH (07:20)
[2022-02-18] MEDS: loratadine 10mg tablet PO SCH (07:21)
[2022-02-18] MEDS: potassium chloride 8mEq ER tablet PO SCH (07:21)
[2022-02-18] MEDS: docusate sod 100mg capsule PO SCH (07:21)
[2022-02-18] MEDS: metoprolol tartrate 50mg tablet PO SCH (07:22)
[2022-02-18] MEDS: HYDROcodone/acetaminophen 5mg/325mg tablet PO PRN ×2 (07:25→11:42)
[2022-02-18] MEDS: pregabalin 25mg capsule PO SCH (07:26)
[2022-02-18] MEDS: K and/or MAG REPLACEMENT MC SCH (08:00)
[2022-02-18] MEDS: ipratropium 0.5 MG/2.5ML nebule IH SCH (08:26)
[2022-02-18] MEDS: nystatin 15 GM powder TP SCH ×2 (08:36→10:49)
[2022-02-18] MEDS: ketorolac tromethamine 15mg/ml inj. IV PRN (09:26)
[2022-02-18 11:00] VITALS: BP 116/58
[2022-02-18 11:14] VITALS: BP 103/64
[2022-02-18] MEDS: JUVEN Smoothie Arginine/Glut./Ca2+Bmb (Juven 19.3pkt) 240ml cup PO SCH (12:52)
--- NOTE | 2022-02-18 13:37 | NUR ---
PATIENT seen by Dr brooks, is for DC home. wound care done. All DC instructions given to patient . Awaiting ride home
--- NOTE | 2022-02-18 16:13 | NUR ---
patient DC home via private car with family member in stable condition. wound care supplies given to patient.
== END 2022-02-18 14:30 | disposition home health service (06) | DRG 425 ==
LOC: ER 16:11 → ED HOLD 02-15 07:40 → EDBEDREQ 02-15 20:23 → SUR 3N 02-15 21:35
PROVIDERS: ADMIT Family Medicine; ATTEND Family Medicine
DX: E87.6 Hypokalemia (principal); N17.9 Acute kidney failure, unspecified; L89.329 Pressure ulcer of left buttock, unspecified stage; I11.0 Hypertensive heart disease with heart failure; L03.115 Cellulitis of right lower limb; I50.32 Chronic diastolic (congestive) heart failure; D64.9 Anemia, unspecified; S30.91XA Unspecified superficial injury of lower back and pelvis, initial encounter; I89.0 Lymphedema, not elsewhere classified; L03.116 Cellulitis of left lower limb; W18.39XA Other fall on same level, initial encounter; E78.00 Pure hypercholesterolemia, unspecified; F17.200 Nicotine dependence, unspecified, uncomplicated; Z60.2 Problems related to living alone; R62.7 Adult failure to thrive; I25.10 Atherosclerotic heart disease of native coronary artery without angina pectoris; E66.01 Morbid (severe) obesity due to excess calories; J43.9 Emphysema, unspecified; Z53.20 Procedure and treatment not carried out because of patient's decision for unspecified reasons; G62.9 Polyneuropathy, unspecified; M25.531 Pain in right wrist; M79.641 Pain in right hand; R07.81 Pleurodynia; Z71.6 Tobacco abuse counseling; Y93.89 Activity, other specified; Y92.89 Other specified places as the place of occurrence of the external cause; Y99.8 Other external cause status; Z68.34 Body mass index [BMI] 34.0-34.9, adult
CPT/HCPCS: 36415; 71045; 73130; 80053; 80320; 81001; 82948; 83605; 83735; 84132; 84145; 85025; 87040; 87081; 87088; 94640; 94760; 96365; 96366; 96368; 96375; 99285; A4649; A6196; A6253; A6446; A6449; G0378; J1170; J1815; J1885; J2405; J2543; J3370; J3480; J7030